=== PATIENT | female | born 1965 | race Caucasian/White ===

== ENCOUNTER 2017-05-04 08:27 | Inpatient (IN) ==
--- NOTE | 2017-05-04 11:54 | General Surg History&Physical ---
<Cristin Zhou - Last Filed: 05/04/17 15:38> Date of Encounter: 05/04/17 Time of Encounter: 11:53 Assessment and Plan (1) Abdominal pain Current Visit: Yes Status: Acute 51 y F presenting with periumbilical abdominal pain transferred from OSH, with current presumptive diagnosis acalcalous cholecystitis. Dr. Campos reviewed imagin , and this may possibly be 2/2 to viral enteritis vs. gallbladder obstruction. Pt currently hemodynamically stable and afebrile, with no peritoneal signs on PE. Will need further imaging to assess nature of etiology. Initial Supportive care with IV fluids, pain control, initiation of antibiotics -NPO. -IVF -ABx: IV Flagyl 500 mg IV q8h and Ciprofloxacin 400 mg IV q12h -Vitals Assessment -U/S Gallbladder -Plan for HIDA scan tomorrow, with Cholecystokinin hepatobiliary imaging -Replete electrolytes prn -Pain control -DVT prophylaxis Plan discussed with patient and family by Dr. Campos, all questions were answered. Pt amenable to plan. Qualifiers: Abdominal location: periumbilical Qualified Code(s): R10.33 - Periumbilical pain (2) Hypothyroidism Current Visit: Yes Status: Acute Hx of Thyroid Cancer Consulted with pharmacy, for conversion for home medication: 62.5 mcg Synthroid Injectable, qD Liothyronine - half-life 24 hrs. Will hold for today. Qualifiers: Hypothyroidism type: postablative Qualified Code(s): E89.0 - Postprocedural hypothyroidism (4) DVT prophylaxis Current Visit: Yes Status: Acute OSH Hgb 13.2/Hgb Inpatient: 13.4 No thrombocytopenia, No History (Hx) of bleeding Jabari Prediction Score for Risk of VTE: 5 (Mobility decreased, Acute infection, Obesity BMI >30) Heparin SubQ BID Intermittent pneumatic compression devices History of Present Illness Chief complaint: Abdominal Pain HPI: Ms. Nicole is a 51 year old female with PMHX of HTN and thyroid cancer s/p synthroid and liothyronine, presenting for abdominal pain, currently rated at a 5/10. Pt states abdominal pain associated with intermittent N/V. She denies diarrhea. Denies yellowing of skin, or coloring suggestive of jaundice. Pt is a transfer from OSH ED, where she initially presented on 05/02/17 with similar abdominal pain and given presumptive diagnosis of acute gastritis. She returned the following day following continued epigastric pain she rated then at a 10/ 10. Per OSH record, pt stated she was unable to keep meals down and endorsed headache, which is why she decided to return for admission. Pt denies hx of GI bleeding, hematochezia, emesis, or any recent or remote history of unexplained bleeding. Labs: 05/03/17 Troponin x2 < 0.03. 05/04/17 CMP Na: 135. K: 3.6. CO2: 24 Anion gap: 24. Creatinine: 0.72. TBil: 0.6. Total Calcium 0.3. CRP: 5.37 05/04/17 WBC: 15.2. Hgb: 13.2 Hct: 39.6. Platelet 299. Imagin05/03/17 CT abdomen/pelvis with following interpretation: Enlarged gallbladder, mild pericholic stranding findings are consistent with early cholecystitis. Social Hx, per record review: Occasional Alcohol Use Surgical HX: Hysterectomy Shoulder Surgery Appendectomy (per EMR) Allergies: Penicillin (Child, unspecified rx). Pt states she has tolerated Keflex, cephalosporins as adult without complications. Medications: Synthroid Oral 125 mcg Daily Liothyronine 5 mcg PO daily Omeprazole Past Med Surg Social Fam HX - Past Medical History Medical history: cancer, hypertension, other Psychiatric history: no psych history - Social History Smoking Status: Former smoker Smokeless Tobacco Status: No Alcohol use: occasionally Drug use: none - Family History Mother Living Status: Age at : 83 Cause of : sepsis Hx Family Cardiac Disorders: Yes (CHF, HTN) Medications and Allergies Liothyronine Sodium [Cytomel] 5 mcg PO DAILY 05/05/17 [History] Omeprazole [PriLOSEC] 20 mg PO DAILY 05/05/17 [History] hydroCHLOROthiazide [Hydrochlorothiazide] 25 mg PO DAILY 05/05/17 [History] 3 Allergy/AdvReac Type Severity Reaction Status Date / Time Penicillins [PCN] AdvReac "FELT Verified 05/05/17 07:21 STRANGE" Review of Systems All systems PM: As documented above in the HPI. General Surgery Exam Physical exam performed by Ignacio Campos MD and dictated as noted below: Vital Signs/O2 Sat/Glucose, Most Current Temp Pulse Resp BP Pulse Ox 05/04/17 11:44 98.4 F 86 18 133/88 92 - General physical appearance no distress, moderate pain - Eyes normal ocular movement - Respiratory normal expansion, normal respiratory effort, clear to auscultation - Cardiovascular Cardiovascular exam: Present: tachycardia, regular rhythm - Abdomen Abdomen general surgery: Present: bowel sounds present (A few normal bowel sounds. Negative Maravilla's sign. Centralized Periumbilica Pain on palpation. Abdominal tenderness not increased with motion. fe). Absent: guarding, rebound Results - Labs 05/04/17 14:33 05/04/17 14:33 Labs, per OSH documentation. - Imaging CT scan - abdomen: report reviewed (OSH CT Angio Abdomen Pelvis 05/03/17 19:53 PM Impression: No CTA evidence of mesenteric ischemia. Distended gallbladder with some questionable mild pericholecystic stranding which was not definetely visualized on prior study of the prior day. Study is howeveer degraded secondary to patient's large body habitus and streak artifact. No radiopaque gallstone is seen. Findings could possibly represent acute cholecystitis if patient with right upper quadrant pain. Futher evaluation with right upper quadrant ultrasound would be recommended. ), image reviewed (OSH, personally reviewed by Dr. Campos) <Ignacio Campos - Last Filed: 05/06/17 08:39> Date of Encounter: 05/04/17 History of Present Illness HPI: Ms. Nicole is a 51 year old female Review of Systems All systems PM: A 10-system review of systems was performed and is negative for pertinent findings except as documented above in the HPI. General Surgery Exam Initial Vital Signs Temp Pulse Resp BP Pulse Ox 98.4 F 86 18 133/88 92 05/04/17 11:44 05/04/17 11:44 05/04/17 11:44 05/04/17 11:44 05/04/17 11:44 Results - Labs 05/06/17 06:25 05/06/17 06:25 Abnormal lab results WBC 16.6 K/mcL (4.3-11.1) H 05/06/17 06:25 MCV 80.8 fL (83.0-100.0) L 05/06/17 06:25 MCH 25.7 pg (28.0-33.3) L 05/06/17 06:25 RDW 15.9 % (11.5-14.5) H 05/06/17 06:25 Neutrophils # 14.3 K/mcL (1.6-8.9) H 05/06/17 06:25 Monocytes # 1.4 K/mcL (0.0-1.3) H 05/06/17 06:25 PT 13.5 Seconds (9.4-12.1) H 05/05/17 06:18 Sodium 132 mEq/L (136-145) L 05/06/17 06:25 Carbon Dioxide 22 mEq/L (23-29) L 05/06/17 06:25 Glucose 127 mg/dL (70-105) H 05/06/17 06:25 POC Glucose 90 (58-89) H 05/05/17 05:26 Calculated Osmolality 276 (280-300) L 05/06/17 06:25 Calcium 8.5 mg/dL (8.6-10.3) L 05/06/17 06:25 Diabetes panel 05/06/17 Range/Units 06:25 Sodium 132 L (136-145) mEq/L Potassium 3.8 (3.5-5.1) mEq/L Chloride 106 (98-107) mEq/L Carbon Dioxide 22 L (23-29) mEq/L BUN 15 (6-20) mg/dL Creatinine 0.65 (0.60-1.20) mg/dL Glucose 127 H (70-105) mg/dL Calcium 8.5 L (8.6-10.3) mg/dL Calcium panel 05/06/17 Range/Units 06:25 Calcium 8.5 L (8.6-10.3) mg/dL Pituitary panel 05/06/17 Range/Units 06:25 Sodium 132 L (136-145) mEq/L Potassium 3.8 (3.5-5.1) mEq/L Chloride 106 (98-107) mEq/L Carbon Dioxide 22 L (23-29) mEq/L BUN 15 (6-20) mg/dL Creatinine 0.65 (0.60-1.20) mg/dL Glucose 127 H (70-105) mg/dL Calcium 8.5 L (8.6-10.3) mg/dL Adrenal panel 05/06/17 Range/Units 06:25 Sodium 132 L (136-145) mEq/L Potassium 3.8 (3.5-5.1) mEq/L Chloride 106 (98-107) mEq/L Carbon Dioxide 22 L (23-29) mEq/L BUN 15 (6-20) mg/dL Creatinine 0.65 (0.60-1.20) mg/dL Glucose 127 H (70-105) mg/dL Calcium 8.5 L (8.6-10.3) mg/dL All other labs normal. - Attending Attestation I examined this patient and my medical decision-making was reviewed with the Resident Physician. I agree with the documented findings, disposition and treatment plan as described except to the extent set forth below. The patient is seen in evaluated with the resident. She has epigastric and central abdominal pain. I personally reviewed the CAT scan images and I felt that the findings were equivocal. She will be scheduled for ultrasound and hepatobiliary testing tomorrow. We will make a presumptive diagnosis of acute cholecystitis and treat her with antibiotic in the interim. She will require laparoscopic cholecystectomy if findings are consistent with acute cholecystitis Ignacio Campos MD FACS
[2017-05-04] MEDS ORDERED: OXYCODONE Oral CONC 10 MG/0.5 ML ORAL.SYG SL PRN (13:26)
[2017-05-04] MEDS ORDERED: Ondansetron 4 MG/2 ML VIAL IVP PRN (13:40)
[2017-05-04] MEDS ORDERED: *HR* Metoprolol 5 MG/5 ML VIAL IVP PRN (13:40)
[2017-05-04] MEDS: 0.9 % Sodium Chloride 1,000 ML IVC SCH (14:35)
[2017-05-04] MEDS: MetroNIDAZOLE 500 MG/100 ML 500 MG/100 ML BAG IVPB SCH (14:35)
[2017-05-04] MEDS: OXYCODONE Oral CONC 10 MG/0.5 ML ORAL.SYG SL PRN (14:36)
[2017-05-04 14:41] LABS: Basophils # 0.1 K/mcL (0.0-0.2); Basophils % 0.4 %; Eosinophils # 0.1 K/mcL (0.0-0.6); Eosinophils % 0.8 %; Hematocrit 42.4 % (35.3-44.9); Hemoglobin 13.4 g/dL (11.5-15.4); Immature Granulocytes % 0.4 % (0-4); Lymphocytes # 2.2 K/mcL (0.6-4.6); Lymphocytes % 15.6 %; Mean Corpuscular HGB Conc 31.6 g/dL (31.6-35.5); Mean Corpuscular Hemoglobin 25.5 pg (28.0-33.3); Mean Corpuscular Volume 80.6 fL (83.0-100.0); Mean Platelet Volume 10.1 fL (9.4-12.4); Monocytes # 1.9 K/mcL (0.0-1.3); Monocytes % 13.1 %; Neutrophils # 9.9 K/mcL (1.6-8.9); Platelet Count 314 K/mcL (140-400); Red Blood Count 5.26 M/mcL (3.82-4.97); Red Cell Distribution Width 15.9 % (11.5-14.5); Segmented Neutrophils % 69.7 %
[2017-05-04 14:59] LABS: Alanine Aminotransferase 16 Units/L (7-52); Albumin/Globulin Ratio 1.4 (1.1-2.2); Alkaline Phosphatase 98 Units/L (34-104); Aspartate Amino Transferase 16 Units/L (13-39); BUN/Creatinine Ratio 16 (6-26); Bilirubin,Direct 0.1 mg/dL (0.0-0.2); Bilirubin,Indirect 0.6 mg/dL (0.0-1.2); Bilirubin,Total 0.7 mg/dL (0.3-1.0); Blood Urea Nitrogen 11 mg/dL (6-20); Calcium 9.1 mg/dL (8.6-10.3); Carbon Dioxide 25 mEq/L (23-29); Chloride 103 mEq/L (98-107); Globulin 2.8 g/dL (2.4-3.5); Glucose 98 mg/dL (70-105); Magnesium 2.1 mg/dL (1.6-2.6); Osmolality,Calculated 281 (280-300); Phosphorous 3.3 mg/dL (2.7-4.5); Potassium 3.6 mEq/L (3.5-5.1); Sodium 136 mEq/L (136-145); Total Protein 6.8 g/dL (6.4-8.9); eGFR For African Americans > 60 (> 60); eGFR For Non-African Americans > 60 (> 60)
[2017-05-04] MEDS ORDERED: D5% in Water 1,000 ML IVC PRN (16:38)
[2017-05-04] MEDS ORDERED: Dextrose Gel 15 GM/37.5 ML TUBE PO PRN ×2 (16:38)
[2017-05-04] MEDS ORDERED: Naloxone 0.4 MG/ML INJ IVP PRN (16:38)
[2017-05-04] MEDS ORDERED: *HR* Dextrose 50 % in Water (Syg) 50 ML SYRINGE IVP PRN (16:38)
[2017-05-04] MEDS: Acetaminophen IV 1,000 MG/100 ML INFUS..BTL IVPB SCH ×2 (16:54→23:45)
[2017-05-04] MEDS: *HR* Heparin 5,000 UNIT/ML VIAL SQ SCH (16:54)
[2017-05-05] MEDS: MetroNIDAZOLE 500 MG/100 ML 500 MG/100 ML BAG IVPB SCH ×3 (00:05→23:05)
[2017-05-05 05:06] LABS: Basophils # 0.1 K/mcL (0.0-0.2); Basophils % 0.4 %; Eosinophils # 0.3 K/mcL (0.0-0.6); Hematocrit 39.5 % (35.3-44.9); Hemoglobin 12.7 g/dL (11.5-15.4); Immature Granulocytes % 0.7 % (0-4); Lymphocytes # 3.1 K/mcL (0.6-4.6); Lymphocytes % 23.2 %; Mean Corpuscular HGB Conc 32.2 g/dL (31.6-35.5); Mean Corpuscular Hemoglobin 25.8 pg (28.0-33.3); Mean Corpuscular Volume 80.3 fL (83.0-100.0); Mean Platelet Volume 10.4 fL (9.4-12.4); Monocytes # 1.7 K/mcL (0.0-1.3); Monocytes % 12.5 %; Neutrophils # 8.1 K/mcL (1.6-8.9); Platelet Count 291 K/mcL (140-400); Red Blood Count 4.92 M/mcL (3.82-4.97); Segmented Neutrophils % 61.2 %
[2017-05-05] MEDS: OXYCODONE Oral CONC 10 MG/0.5 ML ORAL.SYG SL PRN ×3 (05:15→19:09)
[2017-05-05] MEDS: *HR* Heparin 5,000 UNIT/ML VIAL SQ SCH (05:17)
[2017-05-05 05:34] LABS: BUN/Creatinine Ratio 17 (6-26); Blood Urea Nitrogen 12 mg/dL (6-20); Calcium 8.8 mg/dL (8.6-10.3); Carbon Dioxide 24 mEq/L (23-29); Chloride 105 mEq/L (98-107); Glucose 90 mg/dL (70-105); Osmolality,Calculated 283 (280-300); Potassium 3.5 mEq/L (3.5-5.1); Sodium 137 mEq/L (136-145); eGFR For African Americans > 60 (> 60); eGFR For Non-African Americans > 60 (> 60)
[2017-05-05] MEDS ORDERED: MORPHINE SUL Oral CONC 10 MG/0.5 ML ORAL.SYG SL ONE (06:37)
[2017-05-05 06:42] LABS: INR 1.2; Prothrombin Time 13.5 Seconds (9.4-12.1)
[2017-05-05 06:44] LABS: Activated Partial Thrombo Time 29.4 Seconds (26.0-36.0)
[2017-05-05] MEDS ORDERED: Pantoprazole 40 MG VIAL IVP SCH (09:00)
[2017-05-05] MEDS ORDERED: Levothyroxine Sodium 100 MCG VIAL IVP SCH (09:00)
[2017-05-05] MEDS: Acetaminophen IV 1,000 MG/100 ML INFUS..BTL IVPB SCH (09:14)
[2017-05-05] MEDS: 0.9 % Sodium Chloride 1,000 ML IVC SCH (09:18)
[2017-05-05] MEDS ORDERED: *HR* Morphine 2 MG/ML SYRINGE IVP ONE (11:17)
--- NOTE | 2017-05-05 13:08 | General Surgery Progress Note ---
Addendum entered and electronically signed by Cristin Zhou MD 05/05/17 14:40: 05/05/17 HIDA Scan Impression resulted: Nonvisualization of the gallbladder after morphine administration consistent with acute cholecystitis. Dr. Campos personally reviewed findings with patient and consented pt for surgery , plan for today. Pt agreed with plan Original Note: <Cristin Zhou - Last Filed: 05/05/17 13:21> Date of Encounter: 05/05/17 Time of Encounter: 13:06 - Assessment and Plan (1) Abdominal pain Current Visit: Yes Status: Acute -05/05/16 U/S Gallbladder demonstrates Cholelithiasis without sonographic evidence of acute cholecystitis. -HIDA Scan pending -Bowel rest -IVF -ABx: IV Flagyl 500 mg IV q8h and Ciprofloxacin 400 mg IV q12h -Continue Vitals Assessment -Replete electrolytes prn -Pain control -DVT prophylaxis Qualifiers: Abdominal location: periumbilical Qualified Code(s): R10.33 - Periumbilical pain (2) Hypothyroidism Current Visit: Yes Status: Acute Hx of Thyroid Cancer Pharmacy consulted for conversion for home medication: 62.5 mcg Synthroid Injectable, qD Plan to also resume patient's Liothyronine Qualifiers: Hypothyroidism type: postablative Qualified Code(s): E89.0 - Postprocedural hypothyroidism (3) Hypertension Current Visit: Yes Status: Acute BP at goal within hospitalization period so far. Lopressor IV PRN while NPO. Qualifiers: Hypertension type: unspecified Qualified Code(s): I10 - Essential (primary ) hypertension (4) DVT prophylaxis Current Visit: Yes Status: Acute No thrombocytopenia, No History (Hx) of bleeding Jabari Prediction Score for Risk of VTE: 5 (Mobility decreased, Acute infection, Obesity BMI >30) Heparin SubQ BID Intermittent pneumatic compression devices Subjective Patient reports: still having pain, afebrile Narrative: States pain was 7/10 and then diminished without intervention on to 5/0. Objective Vital Signs - Last 8 Hours Temp Pulse Resp BP Pulse Ox 05/05/17 07:00 97.9 F 75 18 117/76 95 Intake and Output 05/04/17 05/05/17 05/05/17 23:59 07:59 15:59 Intake Total 300 / 300 957 / 957 1300 / 1300 Output Total 0 / 0 500 / 500 Balance 300 / 300 457 / 457 1300 / 1300 Intake: IV Fluids 300 / 300 957 / 957 1300 / 1300 0.9 % Sodium Chloride 1,000 ML 757 / 757 1000 / 1000 @ 100 mls/hr IVC .Q10H [facility] Rx#: [id number] Ofirmev 1,000 mg/100 ml 1,000 100 / 100 100 / 100 100 / 100 mg In 100 ml @ 400 mls/hr IVPB Q8HR [facility] Rx#:[id number] Cipro Premix 400 MG/200 ML 400 200 / 200 200 / 200 mg In 200 ml @ 200 mls/hr IVPB Q12HR [facility] Rx#:[id number] Flagyl Premix 500 MG/100 ML 500 100 / 100 mg In 100 ml @ 100 mls/hr IVPB Q8HR [facility] Rx#:[id number] Oral 0 / 0 0 / 0 Output: Urine 0 / 0 500 / 500 Other: Meal NPO for supper NPO Weight 137.6 kg Blood Glucose* 90 90 Patient Weight 05/05/17 23:59 Weight 137.6 kg - General physical appearance moderate pain - Respiratory clear to auscultation, other (Absent: Use of accessory muscles. Crackles. ) - Abdomen Abdomen: Present: bowel sounds present, soft, tender (mild ,RUQ). Absent: rebound - Psychiatric oriented to time, oriented to person, oriented to place, speech is normal - Labs 05/05/17 04:45 05/05/17 04:45 Diabetes panel 05/04/17 05/05/17 Range/Units 14:33 04:45 Sodium 136 137 (136-145) mEq/L Potassium 3.6 3.5 (3.5-5.1) mEq/L Chloride 103 105 (98-107) mEq/L Carbon Dioxide 25 24 (23-29) mEq/L BUN 11 12 (6-20) mg/dL Creatinine 0.67 0.69 (0.60-1.20) mg/dL Glucose 98 90 (70-105) mg/dL Calcium 9.1 8.8 (8.6-10.3) mg/dL AST 16 (13-39) Units/L ALT 16 (7-52) Units/L Alkaline Phosphatase 98 (34-104) Units/L Albumin 4.0 (3.5-5.7) g/dL Calcium panel 05/04/17 05/05/17 Range/Units 14:33 04:45 Calcium 9.1 8.8 (8.6-10.3) mg/dL Phosphorus 3.3 (2.7-4.5) mg/dL Albumin 4.0 (3.5-5.7) g/dL Pituitary panel 05/04/17 05/05/17 Range/Units 14:33 04:45 Sodium 136 137 (136-145) mEq/L Potassium 3.6 3.5 (3.5-5.1) mEq/L Chloride 103 105 (98-107) mEq/L Carbon Dioxide 25 24 (23-29) mEq/L BUN 11 12 (6-20) mg/dL Creatinine 0.67 0.69 (0.60-1.20) mg/dL Glucose 98 90 (70-105) mg/dL Calcium 9.1 8.8 (8.6-10.3) mg/dL Adrenal panel 05/04/17 05/05/17 Range/Units 14:33 04:45 Sodium 136 137 (136-145) mEq/L Potassium 3.6 3.5 (3.5-5.1) mEq/L Chloride 103 105 (98-107) mEq/L Carbon Dioxide 25 24 (23-29) mEq/L BUN 11 12 (6-20) mg/dL Creatinine 0.67 0.69 (0.60-1.20) mg/dL Glucose 98 90 (70-105) mg/dL Calcium 9.1 8.8 (8.6-10.3) mg/dL Total Bilirubin 0.7 (0.3-1.0) mg/dL AST 16 (13-39) Units/L ALT 16 (7-52) Units/L Alkaline Phosphatase 98 (34-104) Units/L Albumin 4.0 (3.5-5.7) g/dL - VTE Documentation of Mechanical Device: Intermittent pneumatic compression device Consult Discharge Plan - Plan Instructions: Laparoscopic Cholecystectomy (DC) Additional Instructions: General Surgical Discharge Instructions 1. No pushing, pulling, or lifting greater than 15 lbs for 2-4 weeks (depending upon procedure). 2. You may shower beginning today, but no tub baths, soaking, or swimming for 2 weeks. 3. You may resume driving when you are off narcotics and are safe to react in a car. 4. Take ibuprofen every 8 hours for discomfort. If this does not relieve discomfort, you may take the as needed Percocet. Take narcotics as directed. Do not take more narcotics then directed and do not share your narcotics with any other person. Do not drink alcohol while on narcotics. 5. Take stool softeners (Colace) or a water based laxative (Miralax) while taking narcotics. You may hold for loose stools. 6. Report any fevers greater than 100.5F, increase abdominal discomfort, drainage that looks like pus, increased redness or pain at the surgical site, or any vomiting. 7. Report any pain in the calves, shortness of breath, or rapid heartbeat. 8. Follow-up in the office as directed. 9. If you were prescribed antibiotics, do not stop them without talking to your provider. Referrals: Adriana Barrios CNP [Primary Care Provider] - Mariama Gonzales CNP [Advanced Practice Nurse] - 05/19/17 2:30 pm Prescriptions: OxyCODONE/APAP 5/325 [Percocet 5/325 MG] 1 each PO Q6HR PRN 7 Days #28 tablet PRN Reason: Pain Docusate Sodium [Colace] 100 mg PO BID PRN #30 capsule PRN Reason: Constipation Ibuprofen 800 mg PO Q8H #30 tablet <Ignacio Campos - Last Filed: 05/06/17 08:53> Date of Encounter: 05/06/17 Objective Vital Signs - Last 8 Hours Temp Pulse Resp BP Pulse Ox 05/06/17 07:33 97.6 F 89 16 101/58 93 05/06/17 04:20 98.6 F 88 16 118/79 94 Intake and Output 05/05/17 05/06/17 05/06/17 23:59 07:59 15:59 Intake Total 200 / 200 200 / 200 Output Total 5 / 5 600 / 600 Balance 195 / 195 -400 / -400 Intake: IV Fluids 200 / 200 200 / 200 Ofirmev 1,000 mg/100 ml 1,000 100 / 100 mg In 100 ml @ 400 mls/hr IVPB Q8HR [facility] Rx#:[id number] Cipro Premix 400 MG/200 ML 400 200 / 200 mg In 200 ml @ 200 mls/hr IVPB Q12HR [facility] Rx#:[id number] Flagyl Premix 500 MG/100 ML 500 100 / 100 mg In 100 ml @ 100 mls/hr IVPB Q8HR [facility] Rx#:[id number] Oral 0 / 0 0 / 0 Output: Urine 0 / 0 0 / 0 Estimated Blood Loss 5 / 5 Catheter 600 / 600 Other: Meal Dinner NPO - Labs 05/06/17 06:25 05/06/17 06:25 Diabetes panel 05/06/17 Range/Units 06:25 Sodium 132 L (136-145) mEq/L Potassium 3.8 (3.5-5.1) mEq/L Chloride 106 (98-107) mEq/L Carbon Dioxide 22 L (23-29) mEq/L BUN 15 (6-20) mg/dL Creatinine 0.65 (0.60-1.20) mg/dL Glucose 127 H (70-105) mg/dL Calcium 8.5 L (8.6-10.3) mg/dL Calcium panel 05/06/17 Range/Units 06:25 Calcium 8.5 L (8.6-10.3) mg/dL Pituitary panel 05/06/17 Range/Units 06:25 Sodium 132 L (136-145) mEq/L Potassium 3.8 (3.5-5.1) mEq/L Chloride 106 (98-107) mEq/L Carbon Dioxide 22 L (23-29) mEq/L BUN 15 (6-20) mg/dL Creatinine 0.65 (0.60-1.20) mg/dL Glucose 127 H (70-105) mg/dL Calcium 8.5 L (8.6-10.3) mg/dL Adrenal panel 05/06/17 Range/Units 06:25 Sodium 132 L (136-145) mEq/L Potassium 3.8 (3.5-5.1) mEq/L Chloride 106 (98-107) mEq/L Carbon Dioxide 22 L (23-29) mEq/L BUN 15 (6-20) mg/dL Creatinine 0.65 (0.60-1.20) mg/dL Glucose 127 H (70-105) mg/dL Calcium 8.5 L (8.6-10.3) mg/dL - Attending Attestation I examined this patient and my medical decision-making was reviewed with the Resident Physician. I agree with the documented findings, disposition and treatment plan as described except to the extent set forth below. The patient is seen and evaluated with resident. Ultrasound and hepatobiliary test were suggestive of acute cholecystitis. We will plan surgery later today. I discussed the risks and benefits with the patient she understands and wishes to proceed Ignacio Campos MD FACS
--- NOTE | 2017-05-05 16:28 | Anesthesia Evaluation PreOp ---
Date of Encounter: 05/05/17 Time of Encounter: 16:30 - Past History Planned Operation: Lap Cholecystectomy Cardiac History: Denies any Significant Hx Pulmonary History: Denies Any Significant HX LEARNING CENTER COORDINATOR History: Denies Any Significant HX Other Medical History: Thyroid (Hypothyroid), Other (Morbid Obesity) Anesthesia History: No Prior Anesthetic Complications : No Alcohol Use: occasionally Drug use: none Medications and Allergies Liothyronine Sodium [Cytomel] 5 mcg PO DAILY 05/05/17 [History] Omeprazole [PriLOSEC] 20 mg PO DAILY 05/05/17 [History] hydroCHLOROthiazide [Hydrochlorothiazide] 25 mg PO DAILY 05/05/17 [History] 3 Allergy/AdvReac Type Severity Reaction Status Date / Time Penicillins [PCN] AdvReac "FELT Verified 05/05/17 07:21 STRANGE" - Meds/Allergy Pre-op Review Medications Reviewed: Yes Allergies Reviewed: Yes Beta Blockers on Current Med List: No Anesthesia Results - Labs 05/05/17 04:45 05/05/17 04:45 Laboratory Tests 05/05/17 05/05/17 04:45 04:45 Hgb 12.7 Hct 39.5 Plt Count 291 Sodium 137 Potassium 3.5 BUN 12 Creatinine 0.69 Anesthesia Exam O2 Sat Weight 137.6 kg O2 Sat by Pulse Oximetry 95 O2 Sat by Pulse Oximetry 95 O2 Sat by Pulse Oximetry 95 O2 Sat by Pulse Oximetry 94 O2 Sat by Pulse Oximetry 92 O2 Sat by Pulse Oximetry 96 Vital Signs Temp Pulse Resp BP Pulse Ox 98.4 F 86 18 133/88 92 05/04/17 11:44 05/04/17 11:44 05/04/17 11:44 05/04/17 11:44 05/04/17 11:44 Height: 5'11 Weight: 303 lbs NPO (# of Hours): MN Pain Scale: 0 - HEENT Pupil (Motor): Pupils equal, EOMI Mallampati: II Teeth: Normal Oral Opening: Greater than 3 - LEARNING CENTER COORDINATOR LOC: Oriented LEARNING CENTER COORDINATOR Motor: Normal RUE, Normal LUE, Normal RLE, Normal LLE, Normal Face LEARNING CENTER COORDINATOR Sensory: Normal: RUE, LUE, RLE, LLE, Face - Cardiac Rhythm: Regular Murmur: None JVD: No Carotid Bruit: No - Pulmonary Breath Sounds: bilateral Clear Respiratory Effort: Symmetrical Anesthesia Assess/Plan ASA Score: 3 (MO Hypothyroid) Modified Kerman Scale for Level of Consciousness: Cooperative, oriented, and tranquil Anesthetic Plan: General Monitoring Plan: Standard Monitors Recovery Plan: PACU (Discussed GA, agrees to proceed)
[2017-05-05] MEDS ORDERED: *HR* Midazolam HCl 2 MG/2 ML VIAL ONE (16:33)
[2017-05-05] MEDS ORDERED: Lidocaine -MPF 2% 2 ML VIAL ONE (16:33)
[2017-05-05] MEDS ORDERED: *HR* Propofol 200 MG/20 ML VIAL IVP ONE (16:33)
[2017-05-05] MEDS ORDERED: *HR* FentaNYL (PF) 100 MCG/2 ML VIAL ONE (16:33)
[2017-05-05] MEDS ORDERED: *HR* Rocuronium Bromide 50 MG/5 ML VIAL ONE (16:33)
[2017-05-05] MEDS ORDERED: Dexamethasone 4 MG/ML VIAL ONE (16:35)
[2017-05-05] MEDS ORDERED: Acetaminophen IV 1,000 MG/100 ML INFUS..BTL ONE (16:39)
[2017-05-05] MEDS ORDERED: CefOXitin 1,000 MG VIAL ONE (16:43)
[2017-05-05] MEDS ORDERED: Isovue-300 50 ML VIAL IVP ONE (16:58)
[2017-05-05] MEDS ORDERED: MORPHINE SUL Oral CONC 10 MG/0.5 ML ORAL.SYG SL PRN ×2 (17:22→18:38)
[2017-05-05] MEDS ORDERED: *HR* OxyCODONE Immed Rel 5 MG TABLET PO PRN (17:22)
[2017-05-05] MEDS ORDERED: *HR* Promethazine 25 MG/ML VIAL IVP PRN (17:22)
[2017-05-05] MEDS ORDERED: Ketorolac 30 MG/ML VIAL ONE (17:26)
[2017-05-05] MEDS ORDERED: Ondansetron 4 MG/2 ML VIAL ONE (17:26)
[2017-05-05] MEDS ORDERED: Bupivacaine/Clonidine Syringe 1 EACH SYRINGE ONE (17:47)
--- NOTE | 2017-05-05 17:59 | Operative Note ---
Date of procedure: 05/05/17 Pre-op diagnosis: Acute cholecystitis Post-op diagnosis: same Procedure: Laparoscopic cholecystectomy, cholangiogram (+30% obesity, obstructive gallbladder, acute cholecystitis) Anesthesia: IVA Surgeon: Ignacio Campos Was there an senior care assistant present: Yes Core Paster: Josie Au Estimated blood loss (cc): 20 Specimen: Gallbladder and contents Condition: stable Disposition: PACU Procedure in Detail: Laparoscopic cholecystectomy and intraoperative cholangiogram (+30% for acute gallbladder obstruction, acute cholecystitis, body mass index greater than 43 morbid obesity) Operative procedure after informed consent and appropriate patient identification and timeout the patient was taken to the major operating suite and placed supine position given adequate general endotracheal anesthesia the abdomen is prepped and draped in sterile fashion utilizing ChloraPrep standard draping techniques timeout was taken patient is identified. I made a vertical midline incision below the umbilicus dissected down to level of fascia there are 2 traction stitches placed in the abdominal cavity was entered visually. A León trocar was placed in the abdomen and the abdomen was insufflated to 15 mmHg pressure CO2 the gallbladder was visualized. A placement 11 port in the subxiphoid area and 2 5 mm ports in the subcostal area. The gallbladder was encased and acute inflammatory adhesions and acutely obstructed. Once the inflammatory adhesions were removed. I was able to decompress the gallbladder with the decompression needle. The gallbladder was full of white bile. The gallbladder was grasped and elevated. Because of the patient's profound morbid obesity I had to change the scope from 0 to a 30 degree scope making the dissection much more difficult. 30 minutes was added to the dissection time A variety of blunt and sharp dissection techniques were used to isolate the cystic duct and cystic artery. The cystic artery was controlled with 2 surgical clips proximally and one distally and it was divided I placed a surgical clip on the neck the gallbladder and obtained an intraoperative cholangiogram using 10 mL of Isovue. Intraoperative cholangiogram was normal. The cholangiocatheter was removed and the cystic duct was controlled with 2 surgical clips proximally and was divided the gallbladder was removed from the gallbladder fossae using electrocautery. The gallbladder was necrotic in several areas resulting in spillage of abdominal contents. All spilled stones were recovered in the specimen bag. The gallbladder was removed through the #11 port site. Specimen bag was used for retrieval. I replaced the #11 port and irrigated with copious amounts of antibiotic containing solution. There is no evidence of bleeding or bile leak. All trochars were removed. Fascia was closed with 0 Vicryl skin with 2-0 and 4-0 Vicryl She tolerated the procedure well and was transferred to recovery in stable condition
[2017-05-05] MEDS ORDERED: Neostigmine Methylsulfate 3 MG/3 ML SYRINGE ONE (18:14)
[2017-05-05] MEDS ORDERED: *HR* Metoprolol 5 MG/5 ML VIAL IVP PRN (18:38)
[2017-05-05] MEDS ORDERED: *HR* Dextrose 50 % in Water (Syg) 50 ML SYRINGE IVP PRN (18:38)
[2017-05-05] MEDS ORDERED: Dextrose Gel 15 GM/37.5 ML TUBE PO PRN ×2 (18:38)
[2017-05-05] MEDS ORDERED: D5% in Water 1,000 ML IVC PRN (18:38)
[2017-05-05] MEDS ORDERED: 0.9 % Sodium Chloride 1,000 ML IVC SCH (18:38)
[2017-05-05] MEDS ORDERED: Naloxone 0.4 MG/ML INJ IVP PRN (18:38)
[2017-05-05] MEDS ORDERED: OXYCODONE Oral CONC 10 MG/0.5 ML ORAL.SYG SL PRN (18:38)
--- NOTE | 2017-05-05 18:49 | Anesthesia Evaluation Post Op ---
Date of Encounter: 05/05/17 Time of Encounter: 18:49 - Vital Signs Vital Signs: vss - Lungs Lungs: Clear Ascult./Percussion - Airway Airway: Non-obstructed - Cardiovascular Baseline Rhythm - Mental Status Mental Status: Asleep with brisk response to light stimulation - Pain Pain Scale used: Karyna (Faces) - Nausea Vomiting Nausea Vomiting: Not Present - Hydration Hydration: Ice chips - Discharge PostOp Status: Transfer Patient to floor
[2017-05-06] MEDS ORDERED: Acetaminophen IV 1,000 MG/100 ML INFUS..BTL IVPB SCH
[2017-05-06] MEDS: OXYCODONE Oral CONC 10 MG/0.5 ML ORAL.SYG SL PRN (05:11)
[2017-05-06] MEDS: *HR* Heparin 5,000 UNIT/ML VIAL SQ SCH ×2 (05:12→16:54)
[2017-05-06 06:59] LABS: BUN/Creatinine Ratio 23 (6-26); Blood Urea Nitrogen 15 mg/dL (6-20); Calcium 8.5 mg/dL (8.6-10.3); Carbon Dioxide 22 mEq/L (23-29); Chloride 106 mEq/L (98-107); Glucose 127 mg/dL (70-105); Osmolality,Calculated 276 (280-300); Potassium 3.8 mEq/L (3.5-5.1); Sodium 132 mEq/L (136-145); eGFR For African Americans > 60 (> 60); eGFR For Non-African Americans > 60 (> 60)
[2017-05-06 07:12] LABS: Basophils % 0.2 %; Hemoglobin 12.7 g/dL (11.5-15.4); Immature Granulocytes % 0.5 % (0-4); Lymphocytes # 0.8 K/mcL (0.6-4.6); Lymphocytes % 4.5 %; Mean Corpuscular HGB Conc 31.8 g/dL (31.6-35.5); Mean Corpuscular Hemoglobin 25.7 pg (28.0-33.3); Mean Corpuscular Volume 80.8 fL (83.0-100.0); Mean Platelet Volume 10.5 fL (9.4-12.4); Monocytes # 1.4 K/mcL (0.0-1.3); Monocytes % 8.7 %; Neutrophils # 14.3 K/mcL (1.6-8.9); Platelet Count 290 K/mcL (140-400); Red Blood Count 4.95 M/mcL (3.82-4.97); Red Cell Distribution Width 15.9 % (11.5-14.5); Segmented Neutrophils % 86.1 %
[2017-05-06] MEDS ORDERED: Ketorolac 30 MG/ML VIAL IVP ONE (08:34)
[2017-05-06] MEDS: Levothyroxine Sodium 100 MCG VIAL IVP SCH (08:39)
[2017-05-06] MEDS: MetroNIDAZOLE 500 MG/100 ML 500 MG/100 ML BAG IVPB SCH ×3 (08:41→23:39)
--- NOTE | 2017-05-06 08:47 | Discharge Summary ---
Date of Encounter: 05/06/17 Time of Encounter: 07:15 - Discharge Diagnosis (1) Acute cholecystitis Priority: Primary Status: Acute (2) Obesity (BMI 35.0-39.9 without comorbidity) Priority: Secondary Status: Acute (3) Hypothyroidism Priority: Secondary Status: Acute Qualifiers: Hypothyroidism type: postablative Qualified Code(s): E89.0 - Postprocedural hypothyroidism - Discharge Medications Prescriptions: OxyCODONE/APAP 5/325 [Percocet 5/325 MG] 1 each PO Q6HR PRN 7 Days #28 tablet PRN Reason: Pain Docusate Sodium [Colace] 100 mg PO BID PRN #30 capsule PRN Reason: Constipation Ibuprofen 800 mg PO Q8H #30 tablet Home Medications: Liothyronine Sodium [Cytomel] 5 mcg PO DAILY 05/05/17 [History] Omeprazole [PriLOSEC] 20 mg PO DAILY 05/05/17 [History] hydroCHLOROthiazide [Hydrochlorothiazide] 25 mg PO DAILY 05/05/17 [History] Docusate Sodium [Colace] 100 mg PO BID PRN #30 capsule 05/06/17 [Rx] Ibuprofen 800 mg PO Q8H #30 tablet 05/06/17 [Rx] OxyCODONE/APAP 5/325 [Percocet 5/325 MG] 1 each PO Q6HR PRN 7 Days #28 tablet [Rx] Allergies/Adverse Reactions: 3 Allergy/AdvReac Type Severity Reaction Status Date / Time Penicillins [PCN] AdvReac "FELT Verified 05/05/17 07:21 STRANGE" General Surgery Exam Initial Vital Signs Temp Pulse Resp BP Pulse Ox 98.4 F 86 18 133/88 92 05/04/17 11:44 05/04/17 11:44 05/04/17 11:44 05/04/17 11:44 05/04/17 11:44 - General physical appearance no distress, moderate pain, obese - ENT normal mucosa, atraumatic, normocephalic - Neck trachea midline, no venous distension - Respiratory normal expansion, normal respiratory effort, clear to auscultation - Cardiovascular Cardiovascular exam: Present: distant heart sounds - Abdomen Abdomen general surgery: Present: bowel sounds present, soft, tender (Expected postoperative) Hernia: Present: none - Incision Incision: Present: clean and dry, intact - Integumentary Integumentary general surgery: Present: warm and dry, no abnormal pigmentation - Neurologic Present: CN 2-12 grossly intact, normal coordination, normal sensation - Musculoskeletal Present: normal gait, normal posture - Psychiatric Psychiatric general surgery: Present: A&Ox3, appropriate, oriented to person, oriented to place, oriented to time, speech is normal, memory intact Date of admission: 05/04/17 10:42 Primary care physician: Adriana Barrios, Discharging clinician: Ignacio Pizano) Anticipated date of discharge: 05/06/17 - Patient Status Disposition: Home, Self-Care Condition: Good Functional capacity at discharge: independent ambulation Overall status at discharge: patient is progressing back to baseline - Discharge Instructions Instructions: Laparoscopic Cholecystectomy (DC) Follow Up With: Adriana Barrios CNP [Primary Care Provider] - Mariama Gonzales CNP [Advanced Practice Nurse] - 05/19/17 2:30 pm Forms: Inpatient Work/School Release Additional Instructions: General Surgical Discharge Instructions 1. No pushing, pulling, or lifting greater than 15 lbs for 2-4 weeks (depending upon procedure). 2. You may shower beginning today, but no tub baths, soaking, or swimming for 2 weeks. 3. You may resume driving when you are off narcotics and are safe to react in a car. 4. Take ibuprofen every 8 hours for discomfort. If this does not relieve discomfort, you may take the as needed Percocet. Take narcotics as directed. Do not take more narcotics then directed and do not share your narcotics with any other person. Do not drink alcohol while on narcotics. 5. Take stool softeners (Colace) or a water based laxative (Miralax) while taking narcotics. You may hold for loose stools. 6. Report any fevers greater than 100.5F, increase abdominal discomfort, drainage that looks like pus, increased redness or pain at the surgical site, or any vomiting. 7. Report any pain in the calves, shortness of breath, or rapid heartbeat. 8. Follow-up in the office as directed. 9. If you were prescribed antibiotics, do not stop them without talking to your provider. - Diet and Activity Activity: increase activity as tolerated Diet: advance to your usual diet - Hospital Course Hospital course: Ms. Nicole is a 51 year old female who presented on 05/04/2017 for complaints of right upper quadrant pain. She underwent [place] scan which showed no visualization of the gallbladder after morphine administration indicative of acute cholecystitis, and a right upper quadrant ultrasound which was also consistent with cholelithiasis without evidence of acute cholecystitis. She was taken to the operating room on 05/05/2017 or she underwent a laparoscopic cholecystectomy with choliangiogram which revealed obstructive gallbladder in acute cholecystitis. She has received Cipro and Flagyl pre-and postoperatively. She is ambulating avoiding without difficulty, tolerating a regular diet without nausea or vomiting, vital signs are stable, afebrile, and her abdominal discomfort is overall control. We will begin discharge planning to home with a follow-up in the office in 2 weeks. - Time Spent with Patient Total time spent providing and/or coordinating discharge services: Less than 30 minutes Labs on day of discharge: Labs from last 24 hours 05/06/17 05/06/17 06:25 06:25 WBC 16.6 H RBC 4.95 Hgb 12.7 Hct 40.0 MCV 80.8 L MCH 25.7 L MCHC 31.8 RDW 15.9 H Plt Count 290 MPV 10.5 Immature Gran % 0.5 Seg Neutrophils % 86.1 Lymphocytes % 4.5 Monocytes % 8.7 Eosinophils % 0.0 Basophils % 0.2 Neutrophils # 14.3 H Lymphocytes # 0.8 Monocytes # 1.4 H Eosinophils # 0.0 Basophils # 0.0 Sodium 132 L Potassium 3.8 Chloride 106 Carbon Dioxide 22 L BUN 15 Creatinine 0.65 Est GFR ( Amer) > 60 Est GFR (Non-Af Amer) > 60 BUN/Creatinine Ratio 23 Glucose 127 H Calculated Osmolality 276 L Calcium 8.5 L Preliminary micro results at discharge 05/04/17 14:33 Blood Culture - Preliminary Peripheral Venipuncture No growth. 05/04/17 14:13 Blood Culture - Preliminary Peripheral Venipuncture No growth. - Impressions ITS Impressions Gallbladder Ultrasound 05/04/17 14:03 IMPRESSION: Cholelithiasis without sonographic evidence of acute cholecystitis. D/ / 05/04/2017 16:53:26 Zeke Salgado MD / angi Interpreting Provider: Zeke Salgado MD Bile Acid Absorption NM 05/05/17 10:00 IMPRESSION: Nonvisualization of the gallbladder after morphine administration consistent with acute cholecystitis. D/ / Tremaine Juarez MD / Tremaine Juarez MD Interpreting Provider: Tremaine Juarez MD Cholangiogram,Operative 05/05/17 17:25 IMPRESSION: Normal intraoperative cholangiogram. D/ / Zeke Verdugo MD / Zeke Verdugo MD Interpreting Provider: Zeke Verdugo MD
[2017-05-06] MEDS ORDERED: Pantoprazole 40 MG VIAL IVP SCH (09:00)
[2017-05-06] MEDS: hydroCHLOROthiazide 25 MG TABLET PO SCH (09:59)
[2017-05-06] MEDS: *HR* OxyCODONE/APAP 5/325 TABLET PO PRN ×2 (11:32→20:33)
[2017-05-06 14:17] LABS: Bilirubin,Urine Moderate (Negative); Blood,Urine Negative (Negative); Clarity,Urine Cloudy (Clear); Color,Urine Orange (Yellow); Glucose,Urine (UA) Normal (Normal); Ketones,Urine 15 mg/dL (Negative); Leukocyte Esterase,Urine Trace (Negative); Nitrite,Urine Positive (Negative); Protein,Urine 30 mg/dL (Neg-Trace); Specific Gravity,Urine > 1.030 (1.010-1.025); Urobilinogen,Urine Normal (Normal)
[2017-05-06 14:19] LABS: Bacteria,Urine None Seen per hpf (None-Few); Hyaline Casts,Urine Few per lpf (None-Few); RBC,Urine 0-3 per hpf (0-3); Squamous Epithelial Cell,Urine Many per lpf (None-Few)
[2017-05-06] MEDS ORDERED: *HR* FentaNYL (PF) 100 MCG/2 ML VIAL IVP ONE (14:31)
--- NOTE | 2017-05-06 14:34 | General Surgery Progress Note ---
<HarinderAlma Jesus Manuel - Last Filed: 05/06/17 14:32> Date of Encounter: 05/06/17 Time of Encounter: 14:33 - Assessment and Plan (1) Acute cholecystitis Current Visit: Yes Status: Acute s/p lap shania 05/05/2017 Postoperative pain is not controlled at this time. Remain in the hospital for discomfort management and acute urinary retention/P anesthesia. Continue supportive care and discomfort management ambulate TID (2) Acute urinary retention Current Visit: Yes Status: Acute Insert gay Continue FLomax daily (3) Obesity (BMI 35.0-39.9 without comorbidity) Current Visit: Yes Status: Acute (4) Hypothyroidism Current Visit: Yes Status: Acute Qualifiers: Hypothyroidism type: postablative Qualified Code(s): E89.0 - Postprocedural hypothyroidism Subjective Patient reports: still having pain, tolerating liquids well, afebrile Narrative: Miss winn denies nausea, vomiting, or worsening abdominal discomfort. She reports difficulty with urination. She was originally posted for discharge this a.m. after lunch however she states that her abdominal discomfort is not controlled after the administration of 30 mg IV Toradol one dose as well as to Percocet (5/325mg). Bedside RN reports that she did straight The patient and had approximately 200 ML's of dark urine now. UA was sent but results are pending. Bedside RN reports that patient's abdominal discomfort is not controlled and should not feel like she can go home at this time. Objective Vital Signs - Last 8 Hours Temp Pulse Resp BP Pulse Ox 05/06/17 11:16 97.3 F L 77 14 112/72 94 05/06/17 07:33 97.6 F 89 16 101/58 93 Intake and Output 05/05/17 05/06/17 05/06/17 23:59 07:59 15:59 Intake Total 200 / 200 200 / 200 480 / 480 Output Total 5 / 5 600 / 600 200 / 200 Balance 195 / 195 -400 / -400 280 / 280 Intake: IV Fluids 200 / 200 200 / 200 Ofirmev 1,000 mg/100 ml 1,000 100 / 100 mg In 100 ml @ 400 mls/hr IVPB Q8HR [facility] Rx#:[id number] Cipro Premix 400 MG/200 ML 400 200 / 200 mg In 200 ml @ 200 mls/hr IVPB Q12HR [facility] Rx#:[id number] Flagyl Premix 500 MG/100 ML 500 100 / 100 mg In 100 ml @ 100 mls/hr IVPB Q8HR [facility] Rx#:[id number] Oral 0 / 0 0 / 0 480 / 480 Output: Urine 0 / 0 0 / 0 200 / 200 Estimated Blood Loss 5 / 5 Catheter 600 / 600 Other: Meal Dinner NPO Lunch Percent of Meal Consumed 0% - General physical appearance moderate distress, moderate pain - ENT atraumatic, normocephalic - Neck Neck exam: trachea midline, no venous distension - Respiratory normal expansion, normal respiratory effort, clear to auscultation - Cardiovascular Cardiovascular exam: Present: distant heart sounds - Abdomen Abdomen: Present: bowel sounds present, soft, tender Hernia: none - Incision Incision: Present: clean and dry, intact - Integumentary no abnormal pigmentation - Neurologic normal coordination, normal sensation - Musculoskeletal normal posture - Psychiatric oriented to time, oriented to person, oriented to place, memory intact - Labs 05/06/17 06:25 05/06/17 06:25 Diabetes panel 05/06/17 Range/Units 06:25 Sodium 132 L (136-145) mEq/L Potassium 3.8 (3.5-5.1) mEq/L Chloride 106 (98-107) mEq/L Carbon Dioxide 22 L (23-29) mEq/L BUN 15 (6-20) mg/dL Creatinine 0.65 (0.60-1.20) mg/dL Glucose 127 H (70-105) mg/dL Calcium 8.5 L (8.6-10.3) mg/dL Calcium panel 05/06/17 Range/Units 06:25 Calcium 8.5 L (8.6-10.3) mg/dL Pituitary panel 05/06/17 Range/Units 06:25 Sodium 132 L (136-145) mEq/L Potassium 3.8 (3.5-5.1) mEq/L Chloride 106 (98-107) mEq/L Carbon Dioxide 22 L (23-29) mEq/L BUN 15 (6-20) mg/dL Creatinine 0.65 (0.60-1.20) mg/dL Glucose 127 H (70-105) mg/dL Calcium 8.5 L (8.6-10.3) mg/dL Adrenal panel 05/06/17 Range/Units 06:25 Sodium 132 L (136-145) mEq/L Potassium 3.8 (3.5-5.1) mEq/L Chloride 106 (98-107) mEq/L Carbon Dioxide 22 L (23-29) mEq/L BUN 15 (6-20) mg/dL Creatinine 0.65 (0.60-1.20) mg/dL Glucose 127 H (70-105) mg/dL Calcium 8.5 L (8.6-10.3) mg/dL - VTE Reasons for not Prescribing Prophylaxis: Treatment not Indicated - Low risk for VTE Documentation of Mechanical Device: Graduated compression elastic hosiery Consult Discharge Plan - Plan Instructions: Laparoscopic Cholecystectomy (DC) Additional Instructions: General Surgical Discharge Instructions 1. No pushing, pulling, or lifting greater than 15 lbs for 2-4 weeks (depending upon procedure). 2. You may shower beginning today, but no tub baths, soaking, or swimming for 2 weeks. 3. You may resume driving when you are off narcotics and are safe to react in a car. 4. Take ibuprofen every 8 hours for discomfort. If this does not relieve discomfort, you may take the as needed Percocet. Take narcotics as directed. Do not take more narcotics then directed and do not share your narcotics with any other person. Do not drink alcohol while on narcotics. 5. Take stool softeners (Colace) or a water based laxative (Miralax) while taking narcotics. You may hold for loose stools. 6. Report any fevers greater than 100.5F, increase abdominal discomfort, drainage that looks like pus, increased redness or pain at the surgical site, or any vomiting. 7. Report any pain in the calves, shortness of breath, or rapid heartbeat. 8. Follow-up in the office as directed. 9. If you were prescribed antibiotics, do not stop them without talking to your provider. Referrals: Adriana Barrios CNP [Primary Care Provider] - Mariama Gonzales CNP [Advanced Practice Nurse] - 05/19/17 2:30 pm Prescriptions: OxyCODONE/APAP 5/325 [Percocet 5/325 MG] 1 each PO Q6HR PRN 7 Days #28 tablet PRN Reason: Pain Docusate Sodium [Colace] 100 mg PO BID PRN #30 capsule PRN Reason: Constipation Ibuprofen 800 mg PO Q8H #30 tablet <Ignacio Campos - Last Filed: 05/07/17 16:21> Date of Encounter: 05/06/17 Objective Vital Signs - Last 8 Hours Temp Pulse Resp BP Pulse Ox 05/07/17 15:16 97.6 F 104 20 94/56 91 05/07/17 12:03 16 93 05/07/17 11:10 98.5 F 93 18 100/68 93 Intake and Output 05/07/17 05/07/17 05/07/17 07:59 15:59 23:59 Intake Total 100 / 100 190 / 190 Output Total 300 / 300 150 / 150 Balance -200 / -200 40 / 40 Intake: IV Fluids 100 / 100 100 / 100 Flagyl Premix 500 MG/100 ML 500 100 / 100 100 / 100 mg In 100 ml @ 100 mls/hr IVPB Q8HR [facility] Rx#:[id number] Oral 0 / 0 90 / 90 Output: Urine 0 / 0 0 / 0 Catheter 300 / 300 150 / 150 Other: Meal Breakfast Percent of Meal Consumed 100% - Labs 05/07/17 05:31 05/07/17 07:49 Diabetes panel 05/07/17 Range/Units 07:49 Sodium 133 L (136-145) mEq/L Potassium 3.3 L (3.5-5.1) mEq/L Chloride 103 (98-107) mEq/L Carbon Dioxide 23 (23-29) mEq/L BUN 22 H (6-20) mg/dL Creatinine 0.84 (0.60-1.20) mg/dL Glucose 149 H (70-105) mg/dL Calcium 8.3 L (8.6-10.3) mg/dL AST 27 (13-39) Units/L ALT 32 (7-52) Units/L Alkaline Phosphatase 122 H (34-104) Units/L Albumin 2.8 L (3.5-5.7) g/dL Calcium panel 05/07/17 Range/Units 07:49 Calcium 8.3 L (8.6-10.3) mg/dL Albumin 2.8 L (3.5-5.7) g/dL Pituitary panel 05/07/17 Range/Units 07:49 Sodium 133 L (136-145) mEq/L Potassium 3.3 L (3.5-5.1) mEq/L Chloride 103 (98-107) mEq/L Carbon Dioxide 23 (23-29) mEq/L BUN 22 H (6-20) mg/dL Creatinine 0.84 (0.60-1.20) mg/dL Glucose 149 H (70-105) mg/dL Calcium 8.3 L (8.6-10.3) mg/dL Adrenal panel 05/07/17 Range/Units 07:49 Sodium 133 L (136-145) mEq/L Potassium 3.3 L (3.5-5.1) mEq/L Chloride 103 (98-107) mEq/L Carbon Dioxide 23 (23-29) mEq/L BUN 22 H (6-20) mg/dL Creatinine 0.84 (0.60-1.20) mg/dL Glucose 149 H (70-105) mg/dL Calcium 8.3 L (8.6-10.3) mg/dL Total Bilirubin 0.9 (0.3-1.0) mg/dL AST 27 (13-39) Units/L ALT 32 (7-52) Units/L Alkaline Phosphatase 122 H (34-104) Units/L Albumin 2.8 L (3.5-5.7) g/dL - Attending Attestation I examined this patient and my medical decision-making was reviewed with the Resident Physician. I agree with the documented findings, disposition and treatment plan as described except to the extent set forth below. The patient was seen and evaluated on morning rounds. She had laparoscopic cholecystectomy last night for severe acute cholecystitis. She continues to have epigastric pain. Continue antibiotics today. Ignacio Campos MD FACS
[2017-05-06] MEDS ORDERED: 0.9 % Sodium Chloride 1,000 ML IVC ONE (14:35)
[2017-05-06] MEDS: Ketorolac 15 MG/ML VIAL IVP SCH ×2 (16:55→23:40)
[2017-05-07] MEDS: *HR* OxyCODONE/APAP 5/325 TABLET PO PRN ×2 (03:06→16:31)
[2017-05-07] MEDS ORDERED: *HR* OxyCODONE/APAP 5/325 TABLET PO ONE (05:40)
[2017-05-07 05:59] LABS: Basophils % 0.2 %; Eosinophils % 0.2 %; Hematocrit 42.4 % (35.3-44.9); Hemoglobin 13.9 g/dL (11.5-15.4); Immature Granulocytes % 1.2 % (0-4); Lymphocytes # 1.4 K/mcL (0.6-4.6); Lymphocytes % 8.8 %; Mean Corpuscular HGB Conc 32.8 g/dL (31.6-35.5); Mean Corpuscular Hemoglobin 25.8 pg (28.0-33.3); Mean Corpuscular Volume 78.8 fL (83.0-100.0); Mean Platelet Volume 11.5 fL (9.4-12.4); Monocytes # 1.6 K/mcL (0.0-1.3); Neutrophils # 12.8 K/mcL (1.6-8.9); Platelet Count 371 K/mcL (140-400); Red Blood Count 5.38 M/mcL (3.82-4.97); Red Cell Distribution Width 16.1 % (11.5-14.5); Segmented Neutrophils % 79.6 %
[2017-05-07] MEDS: Ketorolac 15 MG/ML VIAL IVP SCH ×4 (06:07→23:27)
[2017-05-07] MEDS: *HR* Heparin 5,000 UNIT/ML VIAL SQ SCH ×2 (06:08→18:16)
[2017-05-07 08:12] LABS: Alanine Aminotransferase 32 Units/L (7-52); Albumin 2.8 g/dL (3.5-5.7); Alkaline Phosphatase 122 Units/L (34-104); Aspartate Amino Transferase 27 Units/L (13-39); BUN/Creatinine Ratio 26 (6-26); Bilirubin,Direct 0.4 mg/dL (0.0-0.2); Bilirubin,Indirect 0.5 mg/dL (0.0-1.2); Bilirubin,Total 0.9 mg/dL (0.3-1.0); Blood Urea Nitrogen 22 mg/dL (6-20); Calcium 8.3 mg/dL (8.6-10.3); Carbon Dioxide 23 mEq/L (23-29); Chloride 103 mEq/L (98-107); Globulin 2.8 g/dL (2.4-3.5); Glucose 149 mg/dL (70-105); Osmolality,Calculated 282 (280-300); Potassium 3.3 mEq/L (3.5-5.1); Sodium 133 mEq/L (136-145); Total Protein 5.6 g/dL (6.4-8.9); eGFR For African Americans > 60 (> 60); eGFR For Non-African Americans > 60 (> 60)
[2017-05-07] MEDS: hydroCHLOROthiazide 25 MG TABLET PO SCH (09:59)
[2017-05-07] MEDS: Levothyroxine Sodium 100 MCG VIAL IVP SCH (10:00)
[2017-05-07] MEDS: MetroNIDAZOLE 500 MG/100 ML 500 MG/100 ML BAG IVPB SCH ×3 (10:03→23:28)
[2017-05-07] MEDS: Ipratropium/Albuterol Neb 3 ML IH SCH ×4 (11:56→21:21)
--- NOTE | 2017-05-07 12:35 | General Surgery Progress Note ---
<GemMariama Lizeth - Last Filed: 05/07/17 12:33> Date of Encounter: 05/07/17 Time of Encounter: 12:30 - Assessment and Plan (1) Acute cholecystitis Current Visit: Yes Status: Acute POD #[address] Campos Regular diet IV antibiotics- Cipro and Flagyl Supportive care and pain control Ambulate hallways TID with assistance PPI therapy daily Incentive Spirometer every 1 hour while awake (2) Acute urinary retention Current Visit: Yes Status: Acute UA complete- no culture indicated Flomax started 05/06/17 Continue gay catheter to SD for strict I&Os (3) Shortness of breath Current Visit: Yes Status: Acute Duonebs scheduled every 6 hours Stat CXR now Incentive Spirometer every 1 hour while awake (4) Hypothyroidism Current Visit: Yes Status: Chronic Continue home regimen of synthroid Qualifiers: Hypothyroidism type: postablative Qualified Code(s): E89.0 - Postprocedural hypothyroidism (5) Hypertension Current Visit: Yes Status: Chronic Normotensive at this time Continue home medication regimen Will continue to monitor and adjust as necessary Qualifiers: Hypertension type: unspecified Qualified Code(s): I10 - Essential (primary ) hypertension (6) Obesity (BMI 35.0-39.9 without comorbidity) Current Visit: Yes Status: Chronic (7) DVT prophylaxis Current Visit: Yes Status: Acute Continue heparin 5000 units subcutaneous twice daily for DVT prophylaxis EPCDs to bilateral lower extremities as ordered for DVT prophylaxis The hallways 3 times a day with assistance Subjective Patient reports: still having pain, tolerating liquids well, flatus, afebrile, other (Patient with complaint of cough and worsening shortness of breath since yesterday (Aerosol treatment was not helpful); Unable to void and gay catheter placed 05/06/17) Objective Vital Signs - Last 8 Hours Temp Pulse Resp BP Pulse Ox 05/07/17 12:03 16 93 05/07/17 11:10 98.5 F 93 18 100/68 93 05/07/17 07:12 98.5 F 91 18 107/71 93 Intake and Output 05/06/17 05/07/17 05/07/17 23:59 07:59 15:59 Intake Total 300 / 300 100 / 100 190 / 190 Output Total 0 / 0 300 / 300 150 / 150 Balance 300 / 300 -200 / -200 40 / 40 Intake: IV Fluids 300 / 300 100 / 100 100 / 100 Cipro Premix 400 MG/200 ML 400 200 / 200 mg In 200 ml @ 200 mls/hr IVPB Q12HR [facility] Rx#:[id number] Flagyl Premix 500 MG/100 ML 500 100 / 100 100 / 100 100 / 100 mg In 100 ml @ 100 mls/hr IVPB Q8HR [facility] Rx#:[id number] Oral 0 / 0 0 / 0 90 / 90 Output: Urine 0 / 0 Catheter 0 / 0 300 / 300 150 / 150 Other: Meal Patient refused dinner tray- eating ice chips Breakfast Percent of Meal Consumed 0% 100% - General physical appearance well developed, well nourished, moderate distress, moderate pain, obese - Eyes normal ocular movement - ENT normal mucosa, atraumatic, normocephalic - Neck Neck exam: trachea midline - Respiratory other (diminished bibasilar breath sounds with tachypnea and non-productive/dry cough noted) wheezing: bilateral - Cardiovascular Cardiovascular exam: Present: RRR - Abdomen Abdomen: Present: bowel sounds present, soft, tender (Expected postoperative tenderness) - Incision Incision: Present: clean and dry, intact - Genitourinary other (Gay catheter to straight drain with clear, yellow urine) - Integumentary no rash - Neurologic CN 2-12 grossly intact - Psychiatric oriented to time, oriented to person, oriented to place, speech is normal, memory intact - Labs 05/07/17 05:31 05/07/17 07:49 Diabetes panel 05/07/17 Range/Units 07:49 Sodium 133 L (136-145) mEq/L Potassium 3.3 L (3.5-5.1) mEq/L Chloride 103 (98-107) mEq/L Carbon Dioxide 23 (23-29) mEq/L BUN 22 H (6-20) mg/dL Creatinine 0.84 (0.60-1.20) mg/dL Glucose 149 H (70-105) mg/dL Calcium 8.3 L (8.6-10.3) mg/dL AST 27 (13-39) Units/L ALT 32 (7-52) Units/L Alkaline Phosphatase 122 H (34-104) Units/L Albumin 2.8 L (3.5-5.7) g/dL Calcium panel 05/07/17 Range/Units 07:49 Calcium 8.3 L (8.6-10.3) mg/dL Albumin 2.8 L (3.5-5.7) g/dL Pituitary panel 05/07/17 Range/Units 07:49 Sodium 133 L (136-145) mEq/L Potassium 3.3 L (3.5-5.1) mEq/L Chloride 103 (98-107) mEq/L Carbon Dioxide 23 (23-29) mEq/L BUN 22 H (6-20) mg/dL Creatinine 0.84 (0.60-1.20) mg/dL Glucose 149 H (70-105) mg/dL Calcium 8.3 L (8.6-10.3) mg/dL Adrenal panel 05/07/17 Range/Units 07:49 Sodium 133 L (136-145) mEq/L Potassium 3.3 L (3.5-5.1) mEq/L Chloride 103 (98-107) mEq/L Carbon Dioxide 23 (23-29) mEq/L BUN 22 H (6-20) mg/dL Creatinine 0.84 (0.60-1.20) mg/dL Glucose 149 H (70-105) mg/dL Calcium 8.3 L (8.6-10.3) mg/dL Total Bilirubin 0.9 (0.3-1.0) mg/dL AST 27 (13-39) Units/L ALT 32 (7-52) Units/L Alkaline Phosphatase 122 H (34-104) Units/L Albumin 2.8 L (3.5-5.7) g/dL - VTE Reasons for not Prescribing Prophylaxis: Treatment not Indicated - Low risk for VTE Documentation of Mechanical Device: Intermittent pneumatic compression device Consult Discharge Plan - Plan Instructions: Laparoscopic Cholecystectomy (DC) Additional Instructions: General Surgical Discharge Instructions 1. No pushing, pulling, or lifting greater than 15 lbs for 2-4 weeks (depending upon procedure). 2. You may shower beginning today, but no tub baths, soaking, or swimming for 2 weeks. 3. You may resume driving when you are off narcotics and are safe to react in a car. 4. Take ibuprofen every 8 hours for discomfort. If this does not relieve discomfort, you may take the as needed Percocet. Take narcotics as directed. Do not take more narcotics then directed and do not share your narcotics with any other person. Do not drink alcohol while on narcotics. 5. Take stool softeners (Colace) or a water based laxative (Miralax) while taking narcotics. You may hold for loose stools. 6. Report any fevers greater than 100.5F, increase abdominal discomfort, drainage that looks like pus, increased redness or pain at the surgical site, or any vomiting. 7. Report any pain in the calves, shortness of breath, or rapid heartbeat. 8. Follow-up in the office as directed. 9. If you were prescribed antibiotics, do not stop them without talking to your provider. Referrals: Adriana Barrios CNP [Primary Care Provider] - Mariama Gonzales CNP [Advanced Practice Nurse] - 05/19/17 2:30 pm Prescriptions: OxyCODONE/APAP 5/325 [Percocet 5/325 MG] 1 each PO Q6HR PRN 7 Days #28 tablet PRN Reason: Pain Docusate Sodium [Colace] 100 mg PO BID PRN #30 capsule PRN Reason: Constipation Ibuprofen 800 mg PO Q8H #30 tablet - Attending Attestation For this encounter, I have reviewed the STAFFING CONSULTANT or PA documentation, treatment plan, and medical decision making; and I have had face to face time with this patient. <Ignacio Campos - Last Filed: 05/07/17 16:24> Date of Encounter: 05/07/17 Objective Vital Signs - Last 8 Hours Temp Pulse Resp BP Pulse Ox 05/07/17 15:16 97.6 F 104 20 94/56 91 05/07/17 12:03 16 93 05/07/17 11:10 98.5 F 93 18 100/68 93 Intake and Output 05/07/17 05/07/17 05/07/17 07:59 15:59 23:59 Intake Total 100 / 100 190 / 190 Output Total 300 / 300 150 / 150 Balance -200 / -200 40 / 40 Intake: IV Fluids 100 / 100 100 / 100 Flagyl Premix 500 MG/100 ML 500 100 / 100 100 / 100 mg In 100 ml @ 100 mls/hr IVPB Q8HR [facility] Rx#:[id number] Oral 0 / 0 90 / 90 Output: Urine 0 / 0 0 / 0 Catheter 300 / 300 150 / 150 Other: Meal Breakfast Percent of Meal Consumed 100% - Labs 05/07/17 05:31 05/07/17 07:49 Diabetes panel 05/07/17 Range/Units 07:49 Sodium 133 L (136-145) mEq/L Potassium 3.3 L (3.5-5.1) mEq/L Chloride 103 (98-107) mEq/L Carbon Dioxide 23 (23-29) mEq/L BUN 22 H (6-20) mg/dL Creatinine 0.84 (0.60-1.20) mg/dL Glucose 149 H (70-105) mg/dL Calcium 8.3 L (8.6-10.3) mg/dL AST 27 (13-39) Units/L ALT 32 (7-52) Units/L Alkaline Phosphatase 122 H (34-104) Units/L Albumin 2.8 L (3.5-5.7) g/dL Calcium panel 05/07/17 Range/Units 07:49 Calcium 8.3 L (8.6-10.3) mg/dL Albumin 2.8 L (3.5-5.7) g/dL Pituitary panel 05/07/17 Range/Units 07:49 Sodium 133 L (136-145) mEq/L Potassium 3.3 L (3.5-5.1) mEq/L Chloride 103 (98-107) mEq/L Carbon Dioxide 23 (23-29) mEq/L BUN 22 H (6-20) mg/dL Creatinine 0.84 (0.60-1.20) mg/dL Glucose 149 H (70-105) mg/dL Calcium 8.3 L (8.6-10.3) mg/dL Adrenal panel 05/07/17 Range/Units 07:49 Sodium 133 L (136-145) mEq/L Potassium 3.3 L (3.5-5.1) mEq/L Chloride 103 (98-107) mEq/L Carbon Dioxide 23 (23-29) mEq/L BUN 22 H (6-20) mg/dL Creatinine 0.84 (0.60-1.20) mg/dL Glucose 149 H (70-105) mg/dL Calcium 8.3 L (8.6-10.3) mg/dL Total Bilirubin 0.9 (0.3-1.0) mg/dL AST 27 (13-39) Units/L ALT 32 (7-52) Units/L Alkaline Phosphatase 122 H (34-104) Units/L Albumin 2.8 L (3.5-5.7) g/dL - Attending Attestation The patient was seen and evaluated this afternoon. She has mild tachycardia. CAT scan of the chest and abdomen demonstrated some free air in the abdomen. I feel that this is consistent with her laparoscopic cholecystectomy from 36 hours ago. There is no fluid in the upper abdomen that would indicate perforated viscus. Inflammatory changes in the mesentery are likely secondary to the severe acute cholecystitis that was treated 36 hours ago. On physical examination she did not have guarding or rebound. She is tender in the epigastrium and left upper quadrant. We will continue her antibiotics and watch her very closely clinically. If she continues to have abdominal pain tomorrow we may further study the upper gastrointestinal tract with Gastrografin. Ignacio Campos MD FACS
[2017-05-07] MEDS ORDERED: Potassium Chloride 40 MEQ, Lidocaine 1% 2 ML in D5% in Water 500 ML IVPB ONE (15:38)
[2017-05-08] MEDS: Ipratropium/Albuterol Neb 3 ML IH SCH ×5 (04:27→23:45)
[2017-05-08] MEDS: *HR* Heparin 5,000 UNIT/ML VIAL SQ SCH ×2 (05:42→19:17)
[2017-05-08] MEDS: Ketorolac 15 MG/ML VIAL IVP SCH ×3 (05:42→19:18)
[2017-05-08 05:58] LABS: BUN/Creatinine Ratio 29 (6-26); Blood Urea Nitrogen 23 mg/dL (6-20); Calcium 8.3 mg/dL (8.6-10.3); Carbon Dioxide 20 mEq/L (23-29); Chloride 101 mEq/L (98-107); Glucose 119 mg/dL (70-105); Osmolality,Calculated 279 (280-300); Potassium 3.5 mEq/L (3.5-5.1); Sodium 132 mEq/L (136-145); eGFR For African Americans > 60 (> 60); eGFR For Non-African Americans > 60 (> 60)
[2017-05-08 06:13] LABS: Basophils # 0.1 K/mcL (0.0-0.2); Basophils % 0.4 %; Eosinophils # 0.3 K/mcL (0.0-0.6); Eosinophils % 1.7 %; Hemoglobin 11.9 g/dL (11.5-15.4); Immature Granulocytes % 1.7 % (0-4); Immature Platelets 6.5 % (1.1-6.1); Lymphocytes # 2.2 K/mcL (0.6-4.6); Lymphocytes % 14.1 %; Mean Corpuscular HGB Conc 32.2 g/dL (31.6-35.5); Mean Corpuscular Hemoglobin 25.9 pg (28.0-33.3); Mean Corpuscular Volume 80.6 fL (83.0-100.0); Mean Platelet Volume 10.8 fL (9.4-12.4); Monocytes # 1.8 K/mcL (0.0-1.3); Monocytes % 11.3 %; Neutrophils # 11.1 K/mcL (1.6-8.9); Platelet Count 343 K/mcL (140-400); Red Blood Count 4.59 M/mcL (3.82-4.97); Red Cell Distribution Width 16.3 % (11.5-14.5); Segmented Neutrophils % 70.8 %
[2017-05-08 06:49] LABS: Microcytosis Present (Not Present); Platelet Estimate Normal (Normal)
[2017-05-08] MEDS: Levothyroxine Sodium 100 MCG VIAL IVP SCH (08:26)
[2017-05-08] MEDS: MetroNIDAZOLE 500 MG/100 ML 500 MG/100 ML BAG IVPB SCH ×3 (08:27→23:33)
[2017-05-08] MEDS: hydroCHLOROthiazide 25 MG TABLET PO SCH (11:07)
--- NOTE | 2017-05-08 13:29 | General Surgery Progress Note ---
Date of Encounter: 05/08/17 Time of Encounter: 08:00 (reassessment 1300) - Assessment and Plan (1) Acute cholecystitis Current Visit: Yes Status: Acute s/p lap shania 05/05/2017 hospital course has been complicated thus far by acute urinary retention 2/2 anesthesia, inability to control abdominal discomfort for which she completed an abdominal/pelvis CT which noted scattered colonic gas and stool with no Colonic inflammation changes noted. There was no significant bowel distention; a large amount of free intraperitoneal air greater than the expected 2 days postoperative course; Some mottled gas present within this sub diaphragmatic fat on the left. Mild and filtration of the mesenteric fat. There was no focal abscess seen; small quantity of intra-abdominal ascites. The images were thought to be worrisome for perforation. The images were reviewed by Dr. Campos who fel the free air in the abdomen was consistent with her laparoscopic cholecystectomy approximately 36 hours previously. There was no fluid in the upper abdomen that would indicate a perforated viscous. The inflammatory changes in the mesentery were likely secondary to the severe acute cholecystitis that was treated in the previous 36 hours. She did not have regarding or rebound tenderness on exam. She was recommended to continue her antibiotics and if the abdominal pain continued recommendations for an upper G.I. with Gastrograffin. Her white blood cell count is down trending, without bandemia, Hgb is stable. She is a-febrile,tachycardic, and reports SOB. Upon her morning assessment she stated she was feeling somewhat better and her abdominal pain was controlled. She was restarted on clear liquids. Upon reassessment at approximately 1300, she stated her abdominal discomfort had significantly increased, she felt short of breath, but denied nausea or vomiting. Plan: Upper GI with gatrograffin NPO pending further recommendations continue supportive care and discomfort management continue IV antibiotics continue G.I. and DVT prophylaxis (2) Shortness of breath Current Visit: Yes Status: Acute s/p CTA chest 05/07/2017 (detailed below) no evidence of PE noted. Small left pleural effusion noted. Bilateral lower lobe atelectasis (left greater than right) noted. He was started on scheduled duonebs, BiPAP therapy, incentive spirometry Q1 hour while awake, and encouraged to ambulate as tolerated. Today she reports continued shortness of breath at rest. She is tachycardic. She is sating above 92% on room air. She states she is attempting to use the incentive spirometry but is unable to inhale greater than 500. Plan: Accupap Duonebs per RT (RT consult placed) Aggressive pulmonary toileting Imaging (cxr) less than 44 hours after admission indicates new airspace disease. No infiltrate noted on CTA. Given continued SOB, will repeat CXR and Will switch ATBX Cpiro to Levaquin to cover S. pneumoniae for possible community acquired pneumonia. Continue IV Flagyl. FINDINGS: Chest CTA Pulmonary arteries: Adequate opacification of the pulmonary arterial circulation. No evidence of pulmonary embolic disease. The main pulmonary artery is normal in caliber. Mediastinum: The thoracic aorta is normal in course and caliber. The heart is not enlarged. No pericardial effusion. No pathologic hilar or mediastinal adenopathy. Postoperative changes consistent with previous thyroidectomy. Lungs/pleura: Small left pleural effusion. Bilateral lower lobe atelectasis, left greater than right. No acute infiltrate. No pneumothorax. The central airways are patent. Soft Tissues/Bones: No acute osseous or soft tissue abnormality. FINDINGS: CXR New airspace disease in the left lung base which could represent atelectasis or infiltrate. Left effusion. (3) Acute urinary retention Current Visit: Yes Status: Acute Flomax d/c gay strict I/Os (4) Obesity (BMI 35.0-39.9 without comorbidity) Current Visit: Yes Status: Chronic (5) Hypothyroidism Current Visit: Yes Status: Chronic Qualifiers: Hypothyroidism type: postablative Qualified Code(s): E89.0 - Postprocedural hypothyroidism Subjective Narrative: In the am assessment Jasmyn stated that she felt somewhat improved. She reported continued shortness of breath that had not worsened. She had just returned to bed from ambulating in the hallway. Bedside RN, Lucinda, present during a.m. assessment and noted that patient had done well walking. She denied a bowel movement, nausea, vomiting, and stated her abdominal discomfort was controlled at that point in time. Her Gay catheter was recommended to be removed and she was encouraged to increase her amount of water consumption. Upon reassessment at 1 PM, Jasmyn states her left upper quadrant discomfort has significantly worsened. She reports continued shortness of breath stating she has been attempting her incentive spirometry as directed by is unable to inhale greater than 500 on the unfounded spirometry due to abdominal discomfort and feeling as though she just cannot continue breathing in. Of note her clear liquid tray is at bedside and she has consumed approximately 10%. She denies cough or difficulty urinating. Objective Vital Signs - Last 8 Hours Temp Pulse Resp BP Pulse Ox 05/08/17 10:34 18 95 05/08/17 10:19 98.2 F 106 18 114/73 94 05/08/17 06:42 98.4 F 107 19 106/68 96 Intake and Output 05/07/17 05/08/17 05/08/17 23:59 07:59 15:59 Intake Total 360 / 360 882 / 882 120 / 120 Output Total 200 / 200 300 / 300 175 / 175 Balance 160 / 160 582 / 582 -55 / -55 Intake: IV Fluids 300 / 300 822 / 822 Cipro Premix 400 MG/200 ML 400 200 / 200 200 / 200 mg In 200 ml @ 200 mls/hr IVPB Q12HR [facility] Rx#:[id number] Flagyl Premix 500 MG/100 ML 500 100 / 100 100 / 100 mg In 100 ml @ 100 mls/hr IVPB Q8HR [facility] Rx#:[id number] KCl 40 MEQ Xylocaine 2 ML In 522 / 522 Dextrose 5% 500 ML @ 130.5 mls/ hr IVPB ONCE ONE Rx#:[id number] Oral 60 / 60 60 / 60 120 / 120 Output: Urine 0 / 0 25 / 25 Catheter 200 / 200 300 / 300 150 / 150 Other: Meal Dinner Breakfast Percent of Meal Consumed 100% Weight 137.8 kg Patient Weight 05/08/17 23:59 Weight 137.8 kg - General physical appearance moderate pain, other (Short of breath at rest.) - ENT atraumatic, normocephalic - Neck Neck exam: trachea midline, no venous distension - Respiratory other (Decreased breath sounds; decreased inspiratory effort; short of breath at rest. Able to speak in 2 to 3 word sentences) - Cardiovascular Cardiovascular exam: Present: tachycardia, murmurs, distant heart sounds - Abdomen Abdomen: Present: bowel sounds present (Faint at best. Body habitus impedes BS assessement) Hernia: none Additional Comments: Pt states abdomen feels distended. Her body habitus makes assessing distention and bowel sounds difficult at this time. - Incision Incision: Present: clean and dry, intact - Integumentary no rash - Neurologic normal coordination, normal sensation - Musculoskeletal other (Sitting upright in bed. Ice pack is applied to the left upper quadrant.) - Psychiatric oriented to time, oriented to person, oriented to place, speech is normal, memory intact - Labs 05/08/17 05:23 05/08/17 05:23 Diabetes panel 05/08/17 Range/Units 05:23 Sodium 132 L (136-145) mEq/L Potassium 3.5 (3.5-5.1) mEq/L Chloride 101 (98-107) mEq/L Carbon Dioxide 20 L (23-29) mEq/L BUN 23 H (6-20) mg/dL Creatinine 0.78 (0.60-1.20) mg/dL Glucose 119 H (70-105) mg/dL Calcium 8.3 L (8.6-10.3) mg/dL Calcium panel 05/08/17 Range/Units 05:23 Calcium 8.3 L (8.6-10.3) mg/dL Pituitary panel 05/08/17 Range/Units 05:23 Sodium 132 L (136-145) mEq/L Potassium 3.5 (3.5-5.1) mEq/L Chloride 101 (98-107) mEq/L Carbon Dioxide 20 L (23-29) mEq/L BUN 23 H (6-20) mg/dL Creatinine 0.78 (0.60-1.20) mg/dL Glucose 119 H (70-105) mg/dL Calcium 8.3 L (8.6-10.3) mg/dL Adrenal panel 05/08/17 Range/Units 05:23 Sodium 132 L (136-145) mEq/L Potassium 3.5 (3.5-5.1) mEq/L Chloride 101 (98-107) mEq/L Carbon Dioxide 20 L (23-29) mEq/L BUN 23 H (6-20) mg/dL Creatinine 0.78 (0.60-1.20) mg/dL Glucose 119 H (70-105) mg/dL Calcium 8.3 L (8.6-10.3) mg/dL - VTE Reasons for not Prescribing Prophylaxis: Treatment not Indicated - Low risk for VTE Documentation of Mechanical Device: Intermittent pneumatic compression device Consult Discharge Plan - Plan Instructions: Laparoscopic Cholecystectomy (DC) Additional Instructions: General Surgical Discharge Instructions 1. No pushing, pulling, or lifting greater than 15 lbs for 2-4 weeks (depending upon procedure). 2. You may shower beginning today, but no tub baths, soaking, or swimming for 2 weeks. 3. You may resume driving when you are off narcotics and are safe to react in a car. 4. Take ibuprofen every 8 hours for discomfort. If this does not relieve discomfort, you may take the as needed Percocet. Take narcotics as directed. Do not take more narcotics then directed and do not share your narcotics with any other person. Do not drink alcohol while on narcotics. 5. Take stool softeners (Colace) or a water based laxative (Miralax) while taking narcotics. You may hold for loose stools. 6. Report any fevers greater than 100.5F, increase abdominal discomfort, drainage that looks like pus, increased redness or pain at the surgical site, or any vomiting. 7. Report any pain in the calves, shortness of breath, or rapid heartbeat. 8. Follow-up in the office as directed. 9. If you were prescribed antibiotics, do not stop them without talking to your provider. Referrals: Adriana Barrios CNP [Primary Care Provider] - Mariama Gonzales CNP [Advanced Practice Nurse] - 05/19/17 2:30 pm
[2017-05-08] MEDS ORDERED: Acetaminophen IV 1,000 MG/100 ML INFUS..BTL IVPB ONE (14:29)
[2017-05-08] MEDS ORDERED: MORPHINE SUL Oral CONC 10 MG/0.5 ML ORAL.SYG SL ONE (14:30)
[2017-05-08] MEDS: Levofloxacin 750 MG/150 ML 750 MG/150 ML BAG IVPB SCH (14:54)
[2017-05-08] MEDS ORDERED: Furosemide 40 MG/4 ML VIAL IVP ONE (15:35)
[2017-05-08] MEDS: Ondansetron 4 MG/2 ML VIAL IVP PRN (16:24)
[2017-05-08] MEDS: Metoclopramide 10 MG/2 ML VIAL IVP SCH ×2 (19:18→23:32)
[2017-05-09] MEDS: Ipratropium/Albuterol Neb 3 ML IH SCH ×4 (03:40→21:36)
[2017-05-09 04:23] LABS: Basophils # 0.1 K/mcL (0.0-0.2); Basophils % 0.5 %; Eosinophils # 0.4 K/mcL (0.0-0.6); Eosinophils % 2.7 %; Hematocrit 34.2 % (35.3-44.9); Hemoglobin 11.2 g/dL (11.5-15.4); Immature Granulocytes % 3.8 % (0-4); Immature Platelets 5.9 % (1.1-6.1); Lymphocytes # 1.2 K/mcL (0.6-4.6); Lymphocytes % 7.6 %; Mean Corpuscular HGB Conc 32.7 g/dL (31.6-35.5); Mean Corpuscular Hemoglobin 25.8 pg (28.0-33.3); Mean Corpuscular Volume 78.8 fL (83.0-100.0); Mean Platelet Volume 10.4 fL (9.4-12.4); Monocytes # 1.7 K/mcL (0.0-1.3); Monocytes % 10.3 %; Neutrophils # 12.2 K/mcL (1.6-8.9); Platelet Count 410 K/mcL (140-400); Red Blood Count 4.34 M/mcL (3.82-4.97); Red Cell Distribution Width 15.9 % (11.5-14.5); Segmented Neutrophils % 75.1 %
[2017-05-09 04:34] LABS: Hemoglobin A1C 5.1 %
[2017-05-09 05:12] LABS: Alanine Aminotransferase 17 Units/L (7-52); Albumin 2.8 g/dL (3.5-5.7); Alkaline Phosphatase 124 Units/L (34-104); Aspartate Amino Transferase 11 Units/L (13-39); BUN/Creatinine Ratio 26 (6-26); Bilirubin,Direct 0.2 mg/dL (0.0-0.2); Bilirubin,Indirect 0.5 mg/dL (0.0-1.2); Bilirubin,Total 0.7 mg/dL (0.3-1.0); Blood Urea Nitrogen 21 mg/dL (6-20); Calcium 8.1 mg/dL (8.6-10.3); Carbon Dioxide 23 mEq/L (23-29); Chloride 99 mEq/L (98-107); Globulin 2.9 g/dL (2.4-3.5); Glucose 111 mg/dL (70-105); Osmolality,Calculated 282 (280-300); Potassium 2.9 mEq/L (3.5-5.1); Sodium 134 mEq/L (136-145); Total Protein 5.7 g/dL (6.4-8.9); eGFR For African Americans > 60 (> 60); eGFR For Non-African Americans > 60 (> 60)
[2017-05-09] MEDS: *HR* Heparin 5,000 UNIT/ML VIAL SQ SCH ×2 (05:57→17:10)
[2017-05-09] MEDS: Metoclopramide 10 MG/2 ML VIAL IVP SCH (05:57)
[2017-05-09] MEDS ORDERED: Potassium Chloride 40 MEQ, Lidocaine 1% 2 ML in D5% in Water 500 ML IVPB ONE (06:59)
[2017-05-09 07:49] LABS: Iron < 10 mcg/dL (50-170); Transferrin 154 mg/dL (203-362)
[2017-05-09] MEDS ORDERED: 0.9 % Sodium Chloride 1,000 ML IVC ONE (08:26)
--- NOTE | 2017-05-09 08:58 | General Surgery Progress Note ---
<Alma Pizano - Last Filed: 05/09/17 10:13> Date of Encounter: 05/09/17 Time of Encounter: 08:00 - Assessment and Plan (1) Acute cholecystitis Current Visit: Yes Status: Acute POD #3 s/p elizabeth boylee 05/05/2017 hospital course has been complicated thus far by acute urinary retention 2/2 anesthesia, inability to control abdominal discomfort for which she completed an abdominal/pelvis CT which noted scattered colonic gas and stool with no Colonic inflammation changes noted. There was no significant bowel distention; a large amount of free intraperitoneal air greater than the expected 2 days postoperative course; Some mottled gas present within this sub diaphragmatic fat on the left. Mild and filtration of the mesenteric fat. There was no focal abscess seen; small quantity of intra-abdominal ascites. The images were thought to be worrisome for perforation. The images were reviewed by Dr. Campos who fel the free air in the abdomen was consistent with her laparoscopic cholecystectomy approximately 36 hours previously. There was no fluid in the upper abdomen that would indicate a perforated viscous. The inflammatory changes in the mesentery were likely secondary to the severe acute cholecystitis that was treated in the previous 36 hours. She did not have regarding or rebound tenderness on exam. She was recommended to continue her antibiotics and since her abdominal discomfort persisted, an Upper G.I. with Gastrograffin was obtained which did not reveal any evidence of leak. She was nauseated and had an episode of vomiting after the upper G.I. for which she was treated with Zofran and she stated this resolved. She reports that her abdominal discomfort is well-controlled today. She reports her discomfort as a 2 out of 10. She has had a bowel movement and is passing gas. Her abdominal exam is benign. She states she has "absolutely no appetite." She did not attempt to eat her full liquid diet yesterday. Her white blood cell count increased slightly from 15.7>>16.3 and remains without bandemia. Her hgb is stable. Plan: Full liquid diet; advance diet as tolerated add protein supplements continue supportive care and discomfort management continue IV antibiotics continue G.I. and DVT prophylaxis See assessment and plan for shortness of breath for further recommendations (2) Shortness of breath Current Visit: Yes Status: Acute Plan: TNI now, then Q6H x2 BNP STAT echo-may use enhancement if necessary Consider cardiology consult. Continue Accupap Duonebs per RT (RT consult placed) Aggressive pulmonary toileting Will check iron studies to rule out anemia as source of SOB Interval Assessment history this admission: Imaging (cxr) less than 44 hours after admission indicates new airspace disease (atelectasis versus community acquired pneumonia). No infiltrate noted on CTA. Given continued SOB antibiotics: Cipro changed to Levaquin to cover S pneumoniae , continue IV Flagyl, 40 mg Lasix times 1 dose given for left pleural effusion ( notably patient was only 3 L positive over the submission). Standing scale weight up 3.7KG this admission. She was started on Duonebs and PRN BIpap 2017 and Accupap added 05/08/2017. 05/09/2017 she reports continued feelings of shortness of breath that rest that has not improved. She remains tachycardic. She is 92 to 98% on 3 L nasal cannula. An EKG was obtained at bedside and reviewed by this COMPUTER FORENSICS ANALYST. EKG with ST Q -waves noted in the anterolateral leads, nonspecific ST T wave changes. 1014 Update: TNI, BNP normal. Iron is <10, transferrin 154; will transfuse with Venofer; further recommendations pending. (3) Acute urinary retention Current Visit: Yes Status: Acute Flomax strict I/Os Will bolus x1L over 2-3 hours for tachycardia and decreased urinary output related to poor po intake (4) Obesity (BMI 35.0-39.9 without comorbidity) Current Visit: Yes Status: Chronic (5) Hypothyroidism Current Visit: Yes Status: Chronic Qualifiers: Hypothyroidism type: postablative Qualified Code(s): E89.0 - Postprocedural hypothyroidism (6) Hypokalemia Current Visit: Yes Status: Acute Replace electrolytes as indicated. Repeat a.m. labs Subjective Patient reports: feels better, still having pain, pain is less, voiding w/o difficulty, flatus, bowel movement, shortness of breath, afebrile Narrative: Jasmyn states her abdominal discomfort is significantly improved since yesterday. She reports passing gas and having bowel movement. She rates or discomfort as a 2 out of 10 and feels like soreness. She reports that she has "no appetite." She complains of continued shortness of breath both with activity and rest despite breathing treatments and lasix yesterday. She denies any past history of cardiovascular testing. She does report that heart disease runs in her family on both her mother father and grandparents. Objective Vital Signs - Last 8 Hours Temp Pulse Resp BP Pulse Ox 05/09/17 07:32 98.2 F 113 16 91/58 98 05/09/17 04:23 99.0 F 104 16 114/68 96 05/09/17 03:40 16 92 Intake and Output 05/08/17 05/09/17 05/09/17 23:59 07:59 15:59 Intake Total 370 / 370 160 / 160 Output Total 425 / 425 400 / 400 200 / 200 Balance -55 / -55 -240 / -240 -200 / -200 Intake: IV Fluids 250 / 250 100 / 100 Levaquin Premix 750mg/150 mL 150 / 150 750 mg In 150 ml @ 100 mls/hr IVPB [facility]ILY [facility] Rx#:[id number] Flagyl Premix 500 MG/100 ML 500 100 / 100 100 / 100 mg In 100 ml @ 100 mls/hr IVPB Q8HR [facility] Rx#:[id number] Oral 120 / 120 60 / 60 Output: Urine 425 / 425 400 / 400 200 / 200 Other: Stool Size Small Stool Consistency liquid Stool Color Brown Weight 137.6 kg 141.294 kg Patient Weight 05/09/17 23:59 Weight 141.294 kg - General physical appearance moderate pain, obese, other (Minimal distress. Short of breath rest.) - Eyes normal ocular movement - ENT atraumatic, normocephalic - Neck Neck exam: trachea midline, no venous distension - Respiratory other (Decreased breath sounds in the bilateral basis. Left lower lobe with inspiratory crackles noted.) - Cardiovascular Cardiovascular exam: Present: tachycardia, murmurs, distant heart sounds - Abdomen Abdomen: Present: bowel sounds present, soft, tender (Expected postoperative) Hernia: none - Incision Incision: Present: clean and dry, intact - Integumentary no abnormal pigmentation - Neurologic normal coordination, normal sensation - Musculoskeletal normal posture - Psychiatric oriented to time, oriented to person, oriented to place, memory intact - Labs 05/09/17 03:30 05/09/17 03:30 Diabetes panel 05/09/17 05/09/17 Range/Units 03:30 03:30 Sodium 134 L (136-145) mEq/L Potassium 2.9 L (3.5-5.1) mEq/L Chloride 99 (98-107) mEq/L Carbon Dioxide 23 (23-29) mEq/L BUN 21 H (6-20) mg/dL Creatinine 0.80 (0.60-1.20) mg/dL Glucose 111 H (70-105) mg/dL Hemoglobin A1c 5.1 ( - 5.6) % Calcium 8.1 L (8.6-10.3) mg/dL AST 11 L (13-39) Units/L ALT 17 (7-52) Units/L Alkaline Phosphatase 124 H (34-104) Units/L Albumin 2.8 L (3.5-5.7) g/dL Calcium panel 05/09/17 Range/Units 03:30 Calcium 8.1 L (8.6-10.3) mg/dL Albumin 2.8 L (3.5-5.7) g/dL Pituitary panel 05/09/17 Range/Units 03:30 Sodium 134 L (136-145) mEq/L Potassium 2.9 L (3.5-5.1) mEq/L Chloride 99 (98-107) mEq/L Carbon Dioxide 23 (23-29) mEq/L BUN 21 H (6-20) mg/dL Creatinine 0.80 (0.60-1.20) mg/dL Glucose 111 H (70-105) mg/dL Calcium 8.1 L (8.6-10.3) mg/dL Adrenal panel 05/09/17 Range/Units 03:30 Sodium 134 L (136-145) mEq/L Potassium 2.9 L (3.5-5.1) mEq/L Chloride 99 (98-107) mEq/L Carbon Dioxide 23 (23-29) mEq/L BUN 21 H (6-20) mg/dL Creatinine 0.80 (0.60-1.20) mg/dL Glucose 111 H (70-105) mg/dL Calcium 8.1 L (8.6-10.3) mg/dL Total Bilirubin 0.7 (0.3-1.0) mg/dL AST 11 L (13-39) Units/L ALT 17 (7-52) Units/L Alkaline Phosphatase 124 H (34-104) Units/L Albumin 2.8 L (3.5-5.7) g/dL - VTE Reasons for not Prescribing Prophylaxis: Treatment not Indicated - Low risk for VTE Documentation of Mechanical Device: Intermittent pneumatic compression device Consult Discharge Plan - Plan Instructions: Laparoscopic Cholecystectomy (DC) Additional Instructions: General Surgical Discharge Instructions 1. No pushing, pulling, or lifting greater than 15 lbs for 2-4 weeks (depending upon procedure). 2. You may shower beginning today, but no tub baths, soaking, or swimming for 2 weeks. 3. You may resume driving when you are off narcotics and are safe to react in a car. 4. Take ibuprofen every 8 hours for discomfort. If this does not relieve discomfort, you may take the as needed Percocet. Take narcotics as directed. Do not take more narcotics then directed and do not share your narcotics with any other person. Do not drink alcohol while on narcotics. 5. Take stool softeners (Colace) or a water based laxative (Miralax) while taking narcotics. You may hold for loose stools. 6. Report any fevers greater than 100.5F, increase abdominal discomfort, drainage that looks like pus, increased redness or pain at the surgical site, or any vomiting. 7. Report any pain in the calves, shortness of breath, or rapid heartbeat. 8. Follow-up in the office as directed. 9. If you were prescribed antibiotics, do not stop them without talking to your provider. Referrals: Adriana Barrios CNP [Primary Care Provider] - Mariama Gonzales CNP [Advanced Practice Nurse] - 05/19/17 2:30 pm <Ignacio Campos - Last Filed: 05/13/17 14:07> Date of Encounter: 05/09/17 Objective Vital Signs - Last 8 Hours Temp Pulse Resp BP Pulse Ox 05/13/17 10:48 97.4 F L 93 18 114/80 96 05/13/17 07:35 97.9 F 96 18 95/57 93 Intake and Output 05/12/17 05/13/17 05/13/17 23:59 07:59 15:59 Intake Total 300 / 300 0 / 0 Output Total 2250 / 2250 750 / 750 500 / 500 Balance -1950 / -1950 -750 / -750 -500 / -500 Intake: IV Fluids 240 / 240 Maxipime 2,000 MG In Water for 40 / 40 inj. (sterile) 20 ML @ 300 mls/ hr IVP Q8HR [facility] Rx#:[id number] Potassium Chloride 10 mEq/100mL 200 / 200 10 meq In 100 ml @ 100 mls/hr IVPB Q1H [facility] Rx#:[id number] Oral 60 / 60 0 / 0 Output: Urine 600 / 600 750 / 750 500 / 500 Urine/Stool Mix 1650 / 1650 Other: Stool Size Small Stool Consistency soft Stool Color Brown Weight 140.8 kg Patient Weight 05/13/17 23:59 Weight 140.8 kg - Labs 05/13/17 10:00 05/13/17 04:55 Diabetes panel 05/13/17 Range/Units 04:55 Sodium 135 L (136-145) mEq/L Potassium 4.0 D (3.5-5.1) mEq/L Chloride 94 L (98-107) mEq/L Carbon Dioxide 28 (23-29) mEq/L BUN 10 (6-20) mg/dL Creatinine 0.54 L (0.60-1.20) mg/dL Glucose 90 (70-105) mg/dL Calcium 8.6 (8.6-10.3) mg/dL Calcium panel 05/13/17 Range/Units 04:55 Calcium 8.6 (8.6-10.3) mg/dL Pituitary panel 05/13/17 Range/Units 04:55 Sodium 135 L (136-145) mEq/L Potassium 4.0 D (3.5-5.1) mEq/L Chloride 94 L (98-107) mEq/L Carbon Dioxide 28 (23-29) mEq/L BUN 10 (6-20) mg/dL Creatinine 0.54 L (0.60-1.20) mg/dL Glucose 90 (70-105) mg/dL Calcium 8.6 (8.6-10.3) mg/dL Adrenal panel 05/13/17 Range/Units 04:55 Sodium 135 L (136-145) mEq/L Potassium 4.0 D (3.5-5.1) mEq/L Chloride 94 L (98-107) mEq/L Carbon Dioxide 28 (23-29) mEq/L BUN 10 (6-20) mg/dL Creatinine 0.54 L (0.60-1.20) mg/dL Glucose 90 (70-105) mg/dL Calcium 8.6 (8.6-10.3) mg/dL - Attending Attestation I examined this patient and my medical decision-making was reviewed with the Resident Physician. I agree with the documented findings, disposition and treatment plan as described except to the extent set forth below. The patient was seen and evaluated on morning rounds with rest. Abdominal examination overall has improved. Upper GI with Gastrografin fails to demonstrate any evidence of leak. We will continue to follow her clinically. Ignacio Campos MD FACS
[2017-05-09] MEDS: MetroNIDAZOLE 500 MG/100 ML 500 MG/100 ML BAG IVPB SCH ×2 (09:05→17:06)
[2017-05-09] MEDS: Levothyroxine Sodium 100 MCG VIAL IVP SCH (09:07)
[2017-05-09] MEDS: hydroCHLOROthiazide 25 MG TABLET PO SCH (09:08)
--- NOTE | 2017-05-09 09:58 | Electrocardiograph Report ---
[place] [id number] Test Date: 2017-05-09 Pat Name: Jasmyn Nicole Department: 115 Room: 3A33 Gender: F Recreational Assistant: : [id number] Requested By: Alma Pizano Order Number: [id number] Reading MD: Mariama Cunningham Measurements Intervals Latta Rate: 110 P: 42 IL: 150 QRS: -7 QRSD: 107 T: -18 QT: 311 QTc: 376 Interpretive Statements SINUS TACHYCARDIA ST DEVIATION AND MODERATE T-WAVE ABNORMALITY, CONSIDER ANTEROLATERAL ISCHEMIA ST DEVIATION AND MODERATE T-WAVE ABNORMALITY, CONSIDER INFERIOR ISCHEMIA Electronically Signed On 05-09-2017 9:57:06 EST by Mariama Cunningham
[2017-05-09] MEDS: Levofloxacin 750 MG/150 ML 750 MG/150 ML BAG IVPB SCH (10:15)
[2017-05-09] MEDS: Iron Sucrose Complex 400 MG in 0.9 % Sodium Chloride 250 ML IVPB ONE ×2 (11:00→14:00)
[2017-05-09] MEDS ORDERED: Perflutren Lipid Microsphere 1.3 ML in 0.9 % Sodium Chloride 8.7 ML IVP ONE (15:04)
[2017-05-09] MEDS ORDERED: Fluconazole 200 MG/100 ML 200 MG/100 ML BAG IVPB ONE (15:36)
[2017-05-09] MEDS: 0.9 % Sodium Chloride 1,000 ML IVC SCH (17:06)
[2017-05-09] MEDS: *HR* OxyCODONE/APAP 5/325 TABLET PO PRN (22:44)
[2017-05-10] MEDS: MetroNIDAZOLE 500 MG/100 ML 500 MG/100 ML BAG IVPB SCH ×3 (00:11→15:59)
[2017-05-10] MEDS: Ipratropium/Albuterol Neb 3 ML IH SCH ×4 (04:01→21:08)
[2017-05-10] MEDS: *HR* Heparin 5,000 UNIT/ML VIAL SQ SCH ×2 (05:34→18:04)
[2017-05-10 05:43] LABS: Eosinophils # 0.7 K/mcL (0.0-0.6); Hematocrit 32.9 % (35.3-44.9); Hemoglobin 10.6 g/dL (11.5-15.4); Mean Corpuscular HGB Conc 32.2 g/dL (31.6-35.5); Mean Corpuscular Hemoglobin 25.5 pg (28.0-33.3); Mean Corpuscular Volume 79.1 fL (83.0-100.0); Mean Platelet Volume 9.9 fL (9.4-12.4); Platelet Count 442 K/mcL (140-400); Red Blood Count 4.16 M/mcL (3.82-4.97); Red Cell Distribution Width 16.1 % (11.5-14.5)
[2017-05-10 06:05] LABS: Monocytes # 3.3 K/mcL (0.0-1.3); Neutrophils # 9.6 K/mcL (1.6-8.9)
[2017-05-10 06:13] LABS: BUN/Creatinine Ratio 21 (6-26); Blood Urea Nitrogen 13 mg/dL (6-20); Calcium 8.2 mg/dL (8.6-10.3); Carbon Dioxide 25 mEq/L (23-29); Chloride 99 mEq/L (98-107); Glucose 101 mg/dL (70-105); Magnesium 2.3 mg/dL (1.6-2.6); Osmolality,Calculated 280 (280-300); Phosphorous 2.9 mg/dL (2.7-4.5); Potassium 2.7 mEq/L (3.5-5.1); Sodium 135 mEq/L (136-145); eGFR For African Americans > 60 (> 60); eGFR For Non-African Americans > 60 (> 60)
[2017-05-10] MEDS: hydroCHLOROthiazide 25 MG TABLET PO SCH (08:54)
[2017-05-10] MEDS: Levothyroxine Sodium 100 MCG VIAL IVP SCH (08:57)
[2017-05-10] MEDS: Levofloxacin 750 MG/150 ML 750 MG/150 ML BAG IVPB SCH (08:57)
[2017-05-10] MEDS: Fluconazole 100 MG/50 ML 100 MG/50 ML BAG IVPB SCH (10:43)
[2017-05-10] MEDS: 0.9 % Sodium Chloride 1,000 ML IVC SCH (11:50)
[2017-05-10] MEDS: *HR* OxyCODONE/APAP 5/325 TABLET PO PRN ×2 (14:25→20:42)
[2017-05-10] MEDS: Ondansetron 4 MG/2 ML VIAL IVP PRN (21:02)
[2017-05-11] MEDS: MetroNIDAZOLE 500 MG/100 ML 500 MG/100 ML BAG IVPB SCH ×4 (00:07→23:07)
[2017-05-11] MEDS: Ipratropium/Albuterol Neb 3 ML IH SCH ×4 (04:25→21:46)
[2017-05-11 05:16] LABS: BUN/Creatinine Ratio 14 (6-26); Blood Urea Nitrogen 8 mg/dL (6-20); Calcium 8.2 mg/dL (8.6-10.3); Carbon Dioxide 29 mEq/L (23-29); Chloride 98 mEq/L (98-107); Glucose 94 mg/dL (70-105); Magnesium 2.2 mg/dL (1.6-2.6); Osmolality,Calculated 278 (280-300); Phosphorous 3.9 mg/dL (2.7-4.5); Potassium 3.2 mEq/L (3.5-5.1); Sodium 135 mEq/L (136-145); eGFR For African Americans > 60 (> 60); eGFR For Non-African Americans > 60 (> 60)
[2017-05-11] MEDS: *HR* Heparin 5,000 UNIT/ML VIAL SQ SCH ×2 (06:23→16:59)
[2017-05-11] MEDS: 0.9 % Sodium Chloride 1,000 ML IVC SCH (08:09)
[2017-05-11] MEDS: Levofloxacin 750 MG/150 ML 750 MG/150 ML BAG IVPB SCH (08:10)
[2017-05-11] MEDS: hydroCHLOROthiazide 25 MG TABLET PO SCH (08:11)
[2017-05-11] MEDS: Levothyroxine Sodium 100 MCG VIAL IVP SCH (08:12)
[2017-05-11] MEDS: Fluconazole 100 MG/50 ML 100 MG/50 ML BAG IVPB SCH (09:39)
--- NOTE | 2017-05-11 12:19 | General Surgery Progress Note ---
Date of Encounter: 05/10/17 Time of Encounter: 09:35 - Assessment and Plan (1) Acute cholecystitis Current Visit: Yes Status: Acute I reviewed the echocardiogram with Dr. Campbell. We will continue conservative measures at this point. I cannot identify any significant new issue that is responsible for her chest discomfort and heaviness as well as shortness of breath. Subjective Patient reports: other Narrative: This is a 51-year-old female that has had a complicated operative course. She is currently complaining of heaviness in her chest. She has undergone an extensive workup with regards to her cardiac history. She underwent an echocardiogram and was identified to have normal LV function. She is also complaining of shortness of breath. She reports a bowel movement however no flatus. She denies any significant appetite at this point. Objective Vital Signs - Last 8 Hours Temp Pulse Resp BP Pulse Ox 05/11/17 11:17 98.8 F 104 16 126/70 91 05/11/17 11:02 15 94 05/11/17 05:17 99.2 F 100 14 151/83 93 05/11/17 04:25 14 96 Intake and Output 05/10/17 05/11/17 05/11/17 23:59 07:59 15:59 Intake Total 100 / 100 1220 / 1220 780 / 780 Output Total 1000 / 1000 200 / 200 0 / 0 Balance -900 / -900 1020 / 1020 780 / 780 Intake: IV Fluids 100 / 100 1100 / 1100 300 / 300 0.9 % Sodium Chloride 1,000 ML 1000 / 1000 @ 50 mls/hr IVC .Q20H [facility] Rx#: [id number] Diflucan 100 MG/50 ML 100 mg In 50 / 50 50 ml @ 50 mls/hr IVPB DAILY [facility] Rx#:[id number] Levaquin Premix 750mg/150 mL 150 / 150 750 mg In 150 ml @ 100 mls/hr IVPB DAILY [facility] Rx#:[id number] Flagyl Premix 500 MG/100 ML 500 100 / 100 100 / 100 100 / 100 mg In 100 ml @ 100 mls/hr IVPB Q8HR [facility] Rx#:[id number] Oral 0 / 0 120 / 120 480 / 480 Output: Urine 1000 / 1000 200 / 200 0 / 0 Other: Meal Breakfast Percent of Meal Consumed 10% Weight 140.614 kg Patient Weight 05/11/17 23:59 Weight 140.614 kg - General physical appearance well nourished - Eyes PERRL - ENT normal nares - Respiratory normal expansion - Abdomen Abdomen: Present: bowel sounds present, soft - Incision Incision: Present: clean and dry - Neurologic CN 2-12 grossly intact, normal sensation - Labs 05/10/17 05:30 05/11/17 04:30 Diabetes panel 05/11/17 Range/Units 04:30 Sodium 135 L (136-145) mEq/L Potassium 3.2 L (3.5-5.1) mEq/L Chloride 98 (98-107) mEq/L Carbon Dioxide 29 (23-29) mEq/L BUN 8 (6-20) mg/dL Creatinine 0.56 L (0.60-1.20) mg/dL Glucose 94 (70-105) mg/dL Calcium 8.2 L (8.6-10.3) mg/dL Calcium panel 05/11/17 Range/Units 04:30 Calcium 8.2 L (8.6-10.3) mg/dL Phosphorus 3.9 (2.7-4.5) mg/dL Pituitary panel 05/11/17 Range/Units 04:30 Sodium 135 L (136-145) mEq/L Potassium 3.2 L (3.5-5.1) mEq/L Chloride 98 (98-107) mEq/L Carbon Dioxide 29 (23-29) mEq/L BUN 8 (6-20) mg/dL Creatinine 0.56 L (0.60-1.20) mg/dL Glucose 94 (70-105) mg/dL Calcium 8.2 L (8.6-10.3) mg/dL Adrenal panel 05/11/17 Range/Units 04:30 Sodium 135 L (136-145) mEq/L Potassium 3.2 L (3.5-5.1) mEq/L Chloride 98 (98-107) mEq/L Carbon Dioxide 29 (23-29) mEq/L BUN 8 (6-20) mg/dL Creatinine 0.56 L (0.60-1.20) mg/dL Glucose 94 (70-105) mg/dL Calcium 8.2 L (8.6-10.3) mg/dL - VTE Reasons for not Prescribing Prophylaxis: Treatment not Indicated - Low risk for VTE Documentation of Mechanical Device: Intermittent pneumatic compression device Consult Discharge Plan - Plan Instructions: Laparoscopic Cholecystectomy (DC) Additional Instructions: General Surgical Discharge Instructions 1. No pushing, pulling, or lifting greater than 15 lbs for 2-4 weeks (depending upon procedure). 2. You may shower beginning today, but no tub baths, soaking, or swimming for 2 weeks. 3. You may resume driving when you are off narcotics and are safe to react in a car. 4. Take ibuprofen every 8 hours for discomfort. If this does not relieve discomfort, you may take the as needed Percocet. Take narcotics as directed. Do not take more narcotics then directed and do not share your narcotics with any other person. Do not drink alcohol while on narcotics. 5. Take stool softeners (Colace) or a water based laxative (Miralax) while taking narcotics. You may hold for loose stools. 6. Report any fevers greater than 100.5F, increase abdominal discomfort, drainage that looks like pus, increased redness or pain at the surgical site, or any vomiting. 7. Report any pain in the calves, shortness of breath, or rapid heartbeat. 8. Follow-up in the office as directed. 9. If you were prescribed antibiotics, do not stop them without talking to your provider. Referrals: Adriana Barrios CNP [Primary Care Provider] - Mariama Gonzales CNP [Advanced Practice Nurse] - 05/19/17 2:30 pm
--- NOTE | 2017-05-11 12:21 | General Surgery Progress Note ---
Date of Encounter: 05/11/17 Time of Encounter: 12:20 - Assessment and Plan (1) Acute cholecystitis Current Visit: Yes Status: Acute I reviewed the echocardiogram with Dr. Campbell. We will continue conservative measures at this point. I cannot identify any significant new issue that is responsible for her chest discomfort and heaviness as well as shortness of breath. I am going to ask the hospitalist group to see her to evaluate her for shortness of breath. Subjective Patient reports: still having pain, pain is less, no flatus Objective Vital Signs - Last 8 Hours Temp Pulse Resp BP Pulse Ox 05/11/17 11:17 98.8 F 104 16 126/70 91 05/11/17 11:02 15 94 05/11/17 05:17 99.2 F 100 14 151/83 93 05/11/17 04:25 14 96 Intake and Output 05/10/17 05/11/17 05/11/17 23:59 07:59 15:59 Intake Total 100 / 100 1220 / 1220 780 / 780 Output Total 1000 / 1000 200 / 200 0 / 0 Balance -900 / -900 1020 / 1020 780 / 780 Intake: IV Fluids 100 / 100 1100 / 1100 300 / 300 0.9 % Sodium Chloride 1,000 ML 1000 / 1000 @ 50 mls/hr IVC .Q20H [facility] Rx#: [id number] Diflucan 100 MG/50 ML 100 mg In 50 / 50 50 ml @ 50 mls/hr IVPB DAILY [facility] Rx#:[id number] Levaquin Premix 750mg/150 mL 150 / 150 750 mg In 150 ml @ 100 mls/hr IVPB DAILY [facility] Rx#:[id number] Flagyl Premix 500 MG/100 ML 500 100 / 100 100 / 100 100 / 100 mg In 100 ml @ 100 mls/hr IVPB Q8HR [facility] Rx#:[id number] Oral 0 / 0 120 / 120 480 / 480 Output: Urine 1000 / 1000 200 / 200 0 / 0 Other: Meal Breakfast Percent of Meal Consumed 10% Weight 140.614 kg Patient Weight 05/11/17 23:59 Weight 140.614 kg - General physical appearance no distress - Eyes PERRL - ENT normal nares - Neck Neck exam: trachea midline - Respiratory normal expansion - Abdomen Abdomen: Present: bowel sounds present, soft - Labs 05/10/17 05:30 05/11/17 04:30 Diabetes panel 05/11/17 Range/Units 04:30 Sodium 135 L (136-145) mEq/L Potassium 3.2 L (3.5-5.1) mEq/L Chloride 98 (98-107) mEq/L Carbon Dioxide 29 (23-29) mEq/L BUN 8 (6-20) mg/dL Creatinine 0.56 L (0.60-1.20) mg/dL Glucose 94 (70-105) mg/dL Calcium 8.2 L (8.6-10.3) mg/dL Calcium panel 05/11/17 Range/Units 04:30 Calcium 8.2 L (8.6-10.3) mg/dL Phosphorus 3.9 (2.7-4.5) mg/dL Pituitary panel 05/11/17 Range/Units 04:30 Sodium 135 L (136-145) mEq/L Potassium 3.2 L (3.5-5.1) mEq/L Chloride 98 (98-107) mEq/L Carbon Dioxide 29 (23-29) mEq/L BUN 8 (6-20) mg/dL Creatinine 0.56 L (0.60-1.20) mg/dL Glucose 94 (70-105) mg/dL Calcium 8.2 L (8.6-10.3) mg/dL Adrenal panel 05/11/17 Range/Units 04:30 Sodium 135 L (136-145) mEq/L Potassium 3.2 L (3.5-5.1) mEq/L Chloride 98 (98-107) mEq/L Carbon Dioxide 29 (23-29) mEq/L BUN 8 (6-20) mg/dL Creatinine 0.56 L (0.60-1.20) mg/dL Glucose 94 (70-105) mg/dL Calcium 8.2 L (8.6-10.3) mg/dL - VTE Reasons for not Prescribing Prophylaxis: Treatment not Indicated - Low risk for VTE Documentation of Mechanical Device: Intermittent pneumatic compression device Consult Discharge Plan - Plan Instructions: Laparoscopic Cholecystectomy (DC) Additional Instructions: General Surgical Discharge Instructions 1. No pushing, pulling, or lifting greater than 15 lbs for 2-4 weeks (depending upon procedure). 2. You may shower beginning today, but no tub baths, soaking, or swimming for 2 weeks. 3. You may resume driving when you are off narcotics and are safe to react in a car. 4. Take ibuprofen every 8 hours for discomfort. If this does not relieve discomfort, you may take the as needed Percocet. Take narcotics as directed. Do not take more narcotics then directed and do not share your narcotics with any other person. Do not drink alcohol while on narcotics. 5. Take stool softeners (Colace) or a water based laxative (Miralax) while taking narcotics. You may hold for loose stools. 6. Report any fevers greater than 100.5F, increase abdominal discomfort, drainage that looks like pus, increased redness or pain at the surgical site, or any vomiting. 7. Report any pain in the calves, shortness of breath, or rapid heartbeat. 8. Follow-up in the office as directed. 9. If you were prescribed antibiotics, do not stop them without talking to your provider. Referrals: Adriana Barrios CNP [Primary Care Provider] - Mariama Gonzales CNP [Advanced Practice Nurse] - 05/19/17 2:30 pm
[2017-05-11 18:47] LABS: Bilirubin,Urine Negative (Negative); Blood,Urine Negative (Negative); Clarity,Urine Cloudy (Clear); Color,Urine Yellow (Yellow); Glucose,Urine (UA) Normal (Normal); Ketones,Urine 80 mg/dL (Negative); Leukocyte Esterase,Urine Negative (Negative); Nitrite,Urine Negative (Negative); Protein,Urine Negative (Neg-Trace); Urobilinogen,Urine Normal (Normal)
[2017-05-11 18:50] LABS: Bacteria,Urine None Seen per hpf (None-Few); Hyaline Casts,Urine None Seen per lpf (None-Few); Squamous Epithelial Cell,Urine Many per lpf (None-Few); WBC,Urine 0-3 per hpf (0-3)
[2017-05-11] MEDS: *HR* OxyCODONE/APAP 5/325 TABLET PO PRN (23:17)
[2017-05-12] MEDS: Ipratropium/Albuterol Neb 3 ML IH SCH ×4 (03:59→21:47)
[2017-05-12] MEDS: *HR* Heparin 5,000 UNIT/ML VIAL SQ SCH ×2 (05:02→17:42)
[2017-05-12 06:33] LABS: BUN/Creatinine Ratio 20 (6-26); Blood Urea Nitrogen 10 mg/dL (6-20); Calcium 8.4 mg/dL (8.6-10.3); Carbon Dioxide 28 mEq/L (23-29); Chloride 97 mEq/L (98-107); Glucose 88 mg/dL (70-105); Magnesium 2.2 mg/dL (1.6-2.6); Osmolality,Calculated 278 (280-300); Phosphorous 3.7 mg/dL (2.7-4.5); Potassium 3.1 mEq/L (3.5-5.1); Sodium 135 mEq/L (136-145); eGFR For African Americans > 60 (> 60); eGFR For Non-African Americans > 60 (> 60)
[2017-05-12 07:40] LABS: Hemoglobin 11.1 g/dL (11.5-15.4); Red Cell Distribution Width 16.5 % (11.5-14.5)
[2017-05-12 07:41] LABS: Hematocrit 33.6 % (35.3-44.9); Mean Corpuscular Hemoglobin 25.7 pg (28.0-33.3); Mean Corpuscular Volume 77.8 fL (83.0-100.0); Mean Platelet Volume 10.4 fL (9.4-12.4); Platelet Count 420 K/mcL (140-400); Red Blood Count 4.32 M/mcL (3.82-4.97)
[2017-05-12 08:29] LABS: Carcinoembryonic Antigen 1.2 ng/mL (Less than 5.0)
[2017-05-12] MEDS: hydroCHLOROthiazide 25 MG TABLET PO SCH (08:39)
[2017-05-12 09:00] LABS: Anisocytosis 1+ (Not Present); Eosinophils # 0.5 K/mcL (0.0-0.6); Lymphocytes # 7.5 K/mcL (0.6-4.6); Macrocytosis Present (Not Present); Monocytes # 3.5 K/mcL (0.0-1.3); Neutrophils # 13.5 K/mcL (1.6-8.9); Platelet Estimate Normal (Normal); Reactive Lymphocytes Present (Not Present); Toxic Granulation Present (Not Present)
[2017-05-12] MEDS: 0.9 % Sodium Chloride 1,000 ML IVC SCH (10:05)
[2017-05-12] MEDS: Levofloxacin 750 MG/150 ML 750 MG/150 ML BAG IVPB SCH (10:06)
[2017-05-12] MEDS: MetroNIDAZOLE 500 MG/100 ML 500 MG/100 ML BAG IVPB SCH (10:06)
[2017-05-12] MEDS: Fluconazole 100 MG/50 ML 100 MG/50 ML BAG IVPB SCH (10:06)
[2017-05-12] MEDS: Levothyroxine Sodium 100 MCG VIAL IVP SCH (10:06)
--- NOTE | 2017-05-12 10:35 | General Surgery Progress Note ---
Addendum entered and electronically signed by Rebekah Rae MD 05/12/17 11 :50: Patient failed O2 oxygen walk test. Hypoxic at 88% without supplemental oxygen while getting off of bed. Addendum entered and electronically signed by Rebekah Rae MD 05/12/17 11 :29: Patient complaining of new lower extremity edema overnight. States she feels "heavy." -Will FU with cardiology and order BNP. Original Note: <Rebekah Rae - Last Filed: 05/12/17 11:24> Date of Encounter: 05/12/17 Time of Encounter: 10:33 - Assessment and Plan (1) Acute cholecystitis Current Visit: Yes Status: Acute POD #6 s/p lap shania 05/05/2017 -Upper GI series 05/08/2017- no acute abnormality involving the stomach, esophagus or duodenum. No evidence of leak. Persistent subdiaphragmatic free air , as seen on CT. -CT abdomen 05/07/2017-large amount of free intraperitoneal air, greater than expected 2 days postop. Ascities and mild infiltration of mesenteric fat. Findings worrisome for perforation. Largest quantity of focal gas is seen within the LUQ. Small quantity of fluid in gallbladder fossa not unexpected 2 days postop. No evidence of pulmonary embolic disease. Small Left pleural effusion. Bilateral lower lobe atelectatsis. -Echo 05/09/2017- LVEF 60-65%, no segmental dysfunction, no significant valvular dysfunction. -Patient resting comfortably this morning, however, she states she is having difficulty with SOB and discomfort during ambulation. States her pain has improved. Positive flatus and BM's. Abdominal exam benign. -Leukocytosis overnight, (WBC 25.0 up from 16.6 yesterday). -Will consult medicine for persistent shortness of breath, wheezing, elevated WBC. -Physical therapy consult. -CXR 05/12/2017- stable left basilar airspace disease. Continued radiographic FU recommended. Pneumoperitoneum as on previous CXR. Subjective Patient reports: still having pain, tolerating liquids well, voiding w/o difficulty, flatus, bowel movement, shortness of breath, afebrile Objective Vital Signs - Last 8 Hours Temp Pulse Resp BP Pulse Ox 05/12/17 09:07 14 93 05/12/17 05:16 98.2 F 90 14 105/66 93 Intake and Output 05/11/17 05/12/17 05/12/17 23:59 07:59 15:59 Intake Total 440 / 440 1160 / 1160 240 / 240 Output Total 700 / 700 0 / 0 Balance -260 / -260 1160 / 1160 240 / 240 Intake: IV Fluids 200 / 200 1100 / 1100 0.9 % Sodium Chloride 1,000 ML 1000 / 1000 @ 50 mls/hr IVC .Q20H [facility] Rx#: [id number] Flagyl Premix 500 MG/100 ML 500 100 / 100 100 / 100 mg In 100 ml @ 100 mls/hr IVPB Q8HR [facility] Rx#:[id number] Oral 240 / 240 60 / 60 240 / 240 Output: Urine 700 / 700 0 / 0 Other: Stool Size Moderate Large Stool Consistency soft liquid soft Stool Color Brown Brown # Bowel Movements 1 1 Blood Glucose* 89 84 - General physical appearance well developed, well nourished, moderate distress, obese - Eyes normal ocular movement - Neck Neck exam: trachea midline, no venous distension - Respiratory normal expansion, other (diminished air movement at bilateral bases, Wheezes auscultated bilaterally.) - Cardiovascular Cardiovascular exam: Present: RRR - Abdomen Abdomen: Present: bowel sounds present, soft, tender. Absent: guarding, rebound , rigid Abdominal Tenderness: RLQ, LLQ Hernia: none - Incision Incision: Present: clean and dry, intact. Absent: erythema - Integumentary no rash - Neurologic CN 2-12 grossly intact - Psychiatric oriented to time, oriented to person, oriented to place, speech is normal, memory intact - Labs 05/12/17 07:19 05/12/17 05:58 Diabetes panel 05/12/17 Range/Units 05:58 Sodium 135 L (136-145) mEq/L Potassium 3.1 L (3.5-5.1) mEq/L Chloride 97 L (98-107) mEq/L Carbon Dioxide 28 (23-29) mEq/L BUN 10 (6-20) mg/dL Creatinine 0.49 L (0.60-1.20) mg/dL Glucose 88 (70-105) mg/dL Calcium 8.4 L (8.6-10.3) mg/dL Calcium panel 05/12/17 Range/Units 05:58 Calcium 8.4 L (8.6-10.3) mg/dL Phosphorus 3.7 (2.7-4.5) mg/dL Pituitary panel 05/12/17 Range/Units 05:58 Sodium 135 L (136-145) mEq/L Potassium 3.1 L (3.5-5.1) mEq/L Chloride 97 L (98-107) mEq/L Carbon Dioxide 28 (23-29) mEq/L BUN 10 (6-20) mg/dL Creatinine 0.49 L (0.60-1.20) mg/dL Glucose 88 (70-105) mg/dL Calcium 8.4 L (8.6-10.3) mg/dL Adrenal panel 05/12/17 Range/Units 05:58 Sodium 135 L (136-145) mEq/L Potassium 3.1 L (3.5-5.1) mEq/L Chloride 97 L (98-107) mEq/L Carbon Dioxide 28 (23-29) mEq/L BUN 10 (6-20) mg/dL Creatinine 0.49 L (0.60-1.20) mg/dL Glucose 88 (70-105) mg/dL Calcium 8.4 L (8.6-10.3) mg/dL - VTE Reasons for not Prescribing Prophylaxis: Treatment not Indicated - Low risk for VTE Documentation of Mechanical Device: Intermittent pneumatic compression device Consult Discharge Plan - Plan Instructions: Laparoscopic Cholecystectomy (DC) Additional Instructions: General Surgical Discharge Instructions 1. No pushing, pulling, or lifting greater than 15 lbs for 2-4 weeks (depending upon procedure). 2. You may shower beginning today, but no tub baths, soaking, or swimming for 2 weeks. 3. You may resume driving when you are off narcotics and are safe to react in a car. 4. Take ibuprofen every 8 hours for discomfort. If this does not relieve discomfort, you may take the as needed Percocet. Take narcotics as directed. Do not take more narcotics then directed and do not share your narcotics with any other person. Do not drink alcohol while on narcotics. 5. Take stool softeners (Colace) or a water based laxative (Miralax) while taking narcotics. You may hold for loose stools. 6. Report any fevers greater than 100.5F, increase abdominal discomfort, drainage that looks like pus, increased redness or pain at the surgical site, or any vomiting. 7. Report any pain in the calves, shortness of breath, or rapid heartbeat. 8. Follow-up in the office as directed. 9. If you were prescribed antibiotics, do not stop them without talking to your provider. Referrals: Adriana Barrios CNP [Primary Care Provider] - Mariama Gonzales CNP [Advanced Practice Nurse] - 05/19/17 2:30 pm <Ignacio Campos - Last Filed: 05/13/17 14:21> Date of Encounter: 05/12/17 Objective Vital Signs - Last 8 Hours Temp Pulse Resp BP Pulse Ox 05/13/17 10:48 97.4 F L 93 18 114/80 96 05/13/17 07:35 97.9 F 96 18 95/57 93 Intake and Output 05/12/17 05/13/17 05/13/17 23:59 07:59 15:59 Intake Total 300 / 300 0 / 0 Output Total 2250 / 2250 750 / 750 500 / 500 Balance -1950 / -1950 -750 / -750 -500 / -500 Intake: IV Fluids 240 / 240 Maxipime 2,000 MG In Water for 40 / 40 inj. (sterile) 20 ML @ 300 mls/ hr IVP Q8HR [facility] Rx#:[id number] Potassium Chloride 10 mEq/100mL 200 / 200 10 meq In 100 ml @ 100 mls/hr IVPB Q1H [facility] Rx#:[id number] Oral 60 / 60 0 / 0 Output: Urine 600 / 600 750 / 750 500 / 500 Urine/Stool Mix 1650 / 1650 Other: Stool Size Small Stool Consistency soft Stool Color Brown Weight 140.8 kg Patient Weight 05/13/17 23:59 Weight 140.8 kg - Labs 05/13/17 10:00 05/13/17 04:55 Diabetes panel 05/13/17 Range/Units 04:55 Sodium 135 L (136-145) mEq/L Potassium 4.0 D (3.5-5.1) mEq/L Chloride 94 L (98-107) mEq/L Carbon Dioxide 28 (23-29) mEq/L BUN 10 (6-20) mg/dL Creatinine 0.54 L (0.60-1.20) mg/dL Glucose 90 (70-105) mg/dL Calcium 8.6 (8.6-10.3) mg/dL Calcium panel 05/13/17 Range/Units 04:55 Calcium 8.6 (8.6-10.3) mg/dL Pituitary panel 05/13/17 Range/Units 04:55 Sodium 135 L (136-145) mEq/L Potassium 4.0 D (3.5-5.1) mEq/L Chloride 94 L (98-107) mEq/L Carbon Dioxide 28 (23-29) mEq/L BUN 10 (6-20) mg/dL Creatinine 0.54 L (0.60-1.20) mg/dL Glucose 90 (70-105) mg/dL Calcium 8.6 (8.6-10.3) mg/dL Adrenal panel 05/13/17 Range/Units 04:55 Sodium 135 L (136-145) mEq/L Potassium 4.0 D (3.5-5.1) mEq/L Chloride 94 L (98-107) mEq/L Carbon Dioxide 28 (23-29) mEq/L BUN 10 (6-20) mg/dL Creatinine 0.54 L (0.60-1.20) mg/dL Glucose 90 (70-105) mg/dL Calcium 8.6 (8.6-10.3) mg/dL - Attending Attestation I examined this patient and my medical decision-making was reviewed with the Resident Physician. I agree with the documented findings, disposition and treatment plan as described except to the extent set forth below. The patient is seen in evaluated for morning rounds with rest of and the clinical data is discussed in shared with the clinical nurse practitioner. She continues to complain of 3 out of 10 pain, but this is markedly improved. She is tolerating a diet and having bowel movements. We will continue to work with her hypoxia in anticipation of discharge. Ignacio Campos MD FACS
[2017-05-12] MEDS ORDERED: Furosemide 40 MG/4 ML VIAL IVP ONE (12:34)
--- NOTE | 2017-05-12 12:39 | Cardiology Consult Note ---
<Shagufta Winn Jesus Manuel - Last Filed: 05/12/17 12:48> Date of Encounter: 05/12/17 Time of Encounter: 12:10 Assessment and Plan (1) Chest pain Current Visit: Yes Status: Acute Atypical chest pain, suspect pleurtic in etiology. Troponin negative x2. Non-specific ECG changes when compared to previous ECG in 2015. Risk factors for CAD include: former tobacco use, obesity, family hx, and HTN. Would recommend stress test in the outpatient setting once recovered from surgery. Risk factor modification including heart healthy diet, weight loss, and daily exercise. Will coordinate appt with [facility] in the outpatient setting. Qualifiers: Chest pain type: chest pain on breathing Qualified Code(s): R07.1 - Chest pain on breathing; R07.81 - Pleurodynia (2) Shortness of breath Current Visit: Yes Status: Acute Pt. reports worsening shortness of breath since 05/07/17, Cardiology consulted today. POD #6 lap [facility] for acute cholecystitis. BNP=51. TTE 05/11/17: EF 60-65%, normal wall motion, mild LVDD, no significant valvular dysfunction. CXR: stable left basilar airspace disease, pneumoperitoneum. Cumulative I&O: +4954 mL. Patient reports baseline weight ~300 lbs, weight on was 312 lbs. Suspect volume overload contributing to worsening shortness of breath, will trial IV lasix x1 dose now. Replace electrolytes accordingly (K=3.1, IV rider ordered). WBC trending up, now 25. Low grade temp noted over the past several days. Encouraged frequent I.S. hourly while awake. Strict I&Os and daily weights. Would avoid supplemental IVF as patient is taking PO. Will continue to follow. Discussion w patient/family: The assessment and plan as outlined above was discussed with the patient and/or family members who expressed understanding and agreement. All questions were answered. Thank you for involving us in the care of your patient. Please call with any questions. The patient will be discussed and reviewed with Dr. Hernandez; changes to be made accordingly. History of Present Illness Consult date: 05/12/17 Requesting physician: Alma Pizano Consult reason: Chest pain, shortness of breath Chief complaint: Chest pain, shortness of breath History of present illness: Ms. Nicole is a 51 year old female with PMHx significant for thyroid CA and HTN who initially presented to the ED as transfer from outside hospital with acute cholecystitis on 05/04/2017. She is POD #6 from [facility]. Cardiology consulted today for chest pain, shortness of breath, and leg heaviness. Patient reports chest discomfort has been nearly constant since Friday, pain is described as heaviness and worsens when taking a deep breath. Reports edema to upper and lower extremities. She notes that her baseline weight is 300 lbs. Per report, post operative complications included urinary retention and uncontrolled abdominal pain which have contributed to prolonged hospitalization. Past Med Surg Social Fam HX - Past Medical History Attestation: Yes The following information was validated with the patient. Source: unable to obtain Medical history: cancer, hypertension Psychiatric history: no psych history - Past Surgical History Surgical History: cholecystectomy - Social History Smoking Status: Former smoker Smokeless Tobacco Status: No Alcohol use: occasionally Drug use: none - Family History Mother Living Status: Age at : 83 Cause of : sepsis Hx Family Cardiac Disorders: Yes (CHF, HTN) Medications and Allergies Liothyronine Sodium [Cytomel] 5 mcg PO DAILY 05/05/17 [History] Omeprazole [PriLOSEC] 20 mg PO DAILY 05/05/17 [History] hydroCHLOROthiazide [Hydrochlorothiazide] 25 mg PO DAILY 05/05/17 [History] Docusate Sodium [Colace] 100 mg PO BID PRN #30 capsule 05/06/17 [Rx] Ibuprofen 800 mg PO Q8H #30 tablet 05/06/17 [Rx] OxyCODONE/APAP 5/325 [Percocet 5/325 MG] 1 each PO Q6HR PRN 7 Days #28 tablet [Rx] 3 Allergy/AdvReac Type Severity Reaction Status Date / Time Penicillins [PCN] AdvReac "FELT Verified 05/05/17 07:21 STRANGE" All Systems Review: A 10-system review of systems was performed and is negative for pertinent findings except as documented above in the HPI. - Cardiovascular Cardiovascular: as per HPI Physical Examination Vital Signs, Last 4 Hours Temp Pulse Resp BP Pulse Ox 05/12/17 11:14 96 05/12/17 10:40 97.4 F L 95 14 108/67 96 05/12/17 09:07 14 93 General: Conversant, Other (obese) HEENT: Atraumatic, Normocephaly Neck: No JVD Cardiac: Reg Rate and Rhythm, Normal S1 and S2 Lungs: Normal Breath Sounds Neuro: Alert and responsive Abdomen: Other (large, soft. ) Skin: No rashes noted on visualized skin Musculoskeletal: No Chest Wall Tenderness Extremities: Other (mild, non-pitting BLE edema. ) Results 05/12/17 07:19 05/12/17 05:58 Lab Results 05/12/17 05/12/17 05/12/17 05:58 07:19 11:49 WBC 25.0 H D Hgb 11.1 L Hct 33.6 L Plt Count 420 H Sodium 135 L Potassium 3.1 L Chloride 97 L Carbon Dioxide 28 BUN 10 Creatinine 0.49 L Glucose 88 Calcium 8.4 L Magnesium 2.2 B-Natriuretic Peptide 181 H Active Medications Albuterol/Ipratropium (Duoneb) 3 ml IH [id number] [facility] Stop: 11/06/17 10:01 Last Admin: 05/12/17 09:05 Dose: 3 ml Dextrose/Water (Dextrose 50% (Syg)) 25 ml IVP AD PRN PRN Reason: Hypoglycemia Stop: 11/03/17 16:39 Glucagon (Glucagen) 1 mg IM ONCE PRN PRN Reason: Hypoglycemia Stop: 11/03/17 16:39 Glucose (Gluctose) 15 gm PO ONCE PRN PRN Reason: Hypoglycemia Stop: 11/03/17 16:39 Glucose (Gluctose) 30 gm PO ONCE PRN PRN Reason: Hypoglycemia Stop: 11/03/17 16:39 Heparin Sodium (Porcine) (Heparin) 5,000 unit SQ Q12HCO [facility] Stop: 11/03/17 18:01 Last Admin: 05/12/17 05:02 Dose: 5,000 unit Hydrochlorothiazide (Hydrochlorothiazide) 25 mg PO DAILY [facility] PRN Reason: Protocol Stop: 11/05/17 09:01 Last Admin: 05/12/17 08:39 Dose: 25 mg Dextrose (Dextrose 5%) 1,000 mls @ 100 mls/hr IVC .Q10H PRN PRN Reason: HYPOGLYCEMIA Stop: 11/03/17 16:39 Metronidazole (Flagyl Premix 500 Mg/100 Ml) 500 mg in 100 mls @ 100 mls/hr IVPB Q8HR [facility] Stop: 11/03/17 16:01 Last Admin: 05/12/17 10:06 Dose: 100 mls/hr Levofloxacin/Dextrose (Levaquin Premix 750mg/150 Ml) 750 mg in 150 mls @ 100 mls/hr IVPB DAILY [facility] PRN Reason: Protocol Stop: 11/07/17 14:01 Last Admin: 05/12/17 10:06 Dose: 100 mls/hr Fluconazole (Diflucan 100 Mg/50 Ml) 100 mg in 50 mls @ 50 mls/hr IVPB DAILY [facility] Stop: 11/09/17 09:01 Last Admin: 05/12/17 10:06 Dose: 50 mls/hr Sodium Chloride (0.9 % Sodium Chloride) 1,000 mls @ 50 mls/hr IVC .Q20H [facility] Stop: 11/08/17 15:46 Last Admin: 05/12/17 10:05 Dose: 50 mls/hr Potassium Chloride (Potassium Chloride 10 Meq/100ml) 10 meq in 100 mls @ 100 mls/hr IVPB Q1H [facility] Stop: 05/12/17 16:14 Levothyroxine Sodium (Synthroid) 62.5 mcg IVP DAILY [facility] Stop: 11/04/17 09:01 Last Admin: 05/12/17 10:06 Dose: 62.5 mcg Liothyronine Sodium (Cytomel) 2.5 mcg PO BID [facility] Stop: 11/05/17 09:01 Last Admin: 05/12/17 08:39 Dose: 2.5 mcg Liothyronine Sodium (Cytomel) 5 mcg PO DAILY [facility] Stop: 11/05/17 09:01 Last Admin: 05/12/17 08:39 Dose: 5 mcg Metoprolol Tartrate (Lopressor) 5 mg IVP Q6HR PRN PRN Reason: Hypertension Stop: 11/03/17 13:41 Last Admin: 05/10/17 20:42 Dose: 5 mg Naloxone HCl (Narcan) 0.4 mg IVP Q2MIN PRN PRN Reason: SEE COMMENTS Stop: 11/03/17 16:39 Omeprazole (Prilosec) 20 mg PO DAILY [facility] PRN Reason: Protocol Stop: 11/05/17 09:01 Last Admin: 05/12/17 08:39 Dose: 20 mg Ondansetron HCl (Zofran) 4 mg IVP Q6HR PRN PRN Reason: Nausea And Vomiting Stop: 11/03/17 13:41 Last Admin: 05/10/17 21:02 Dose: 4 mg Oxycodone/Acetaminophen (Percocet 5/325) 2 each PO Q6HR PRN PRN Reason: Pain rated 4-10 Stop: 11/05/17 08:36 Last Admin: 05/11/17 23:17 Dose: 2 each Polyethylene Glycol (Miralax) 17 gm PO DAILY [facility] Stop: 11/07/17 16:01 Last Admin: 05/12/17 08:39 Dose: 17 gm Potassium Chloride (Potassium Chloride) 40 meq PO ONCE ONE Stop: 05/12/17 21:01 Tamsulosin HCl (Flomax) 0.4 mg PO DAILY [facility] PRN Reason: Protocol Stop: 11/05/17 12:31 Last Admin: 05/12/17 08:39 Dose: 0.4 mg - Imaging and Cardiology Echo: report reviewed Other Results: Patient not on tele. - EKG Interpretation EKG results cardiology: personally reviewed Consult Discharge Plan - Plan Instructions: Laparoscopic Cholecystectomy (DC) Additional Instructions: General Surgical Discharge Instructions 1. No pushing, pulling, or lifting greater than 15 lbs for 2-4 weeks (depending upon procedure). 2. You may shower beginning today, but no tub baths, soaking, or swimming for 2 weeks. 3. You may resume driving when you are off narcotics and are safe to react in a car. 4. Take ibuprofen every 8 hours for discomfort. If this does not relieve discomfort, you may take the as needed Percocet. Take narcotics as directed. Do not take more narcotics then directed and do not share your narcotics with any other person. Do not drink alcohol while on narcotics. 5. Take stool softeners (Colace) or a water based laxative (Miralax) while taking narcotics. You may hold for loose stools. 6. Report any fevers greater than 100.5F, increase abdominal discomfort, drainage that looks like pus, increased redness or pain at the surgical site, or any vomiting. 7. Report any pain in the calves, shortness of breath, or rapid heartbeat. 8. Follow-up in the office as directed. 9. If you were prescribed antibiotics, do not stop them without talking to your provider. Referrals: Adriana Barrios CNP [Primary Care Provider] - Mariama Gonzales CNP [Advanced Practice Nurse] - 05/19/17 2:30 pm <Larisa Hernandez - Last Filed: 05/12/17 18:09> Date of Encounter: 05/12/17 - Attending Attestation I examined this patient and my medical decision-making was reviewed with the TRAIN GATEMAN. I agree with the documented findings, disposition and treatment plan as described. Ms. Niocle is a 51 year old female presenting with atypical chest pain and SOB. Post op day 6 from [facility]. Troponins have been negative. No acute ECG findings but nonspecific changes when compared to prior ECG 2015. Recent echo with normal LV EF, no other concerning findings. CXR 'stable' bibasilar airspace disease. Vital signs reviewed - low grade temperature. Labs reviewed - leukocytosis. Suspect SOB may be multifactorial and in part due to fluid overload. Agree with IV diuresis. Management per primary team. Alternatively, given leukocytosis and low grade temperature in setting of bibasilar air space disease on CXR - may need to consider an infectious etiology. Given new but non-acute ECG findings when compared to ECG in 2015, can consider stress testing. Would recommend pursuing this as an outpatient after optimizing patient's current clinical status. Will add low dose aspirin for primary prevention. Chest pain is pleuritic and likely related to a pulmonary process. Will sign off. Please call with questions. Assessment and Plan Discussion w patient/family: The assessment and plan as outlined above was discussed with the patient and/or family members who expressed understanding and agreement. All questions were answered. Thank you for involving us in the care of your patient. Please call with any questions. History of Present Illness History of present illness: Ms. Nicole is a 51 year old female All Systems Review: A 10-system review of systems was performed and is negative for pertinent findings except as documented above in the HPI. Physical Examination Vital Signs, Last 4 Hours Temp Pulse Resp BP Pulse Ox 05/12/17 16:30 17 93 05/12/17 15:12 99.0 F 95 17 139/90 93 Results 05/12/17 07:19 05/12/17 05:58 Lab Results 05/12/17 05/12/17 05/12/17 05:58 07:19 11:49 WBC 25.0 H D Hgb 11.1 L Hct 33.6 L Plt Count 420 H Sodium 135 L Potassium 3.1 L Chloride 97 L Carbon Dioxide 28 BUN 10 Creatinine 0.49 L Glucose 88 Calcium 8.4 L Magnesium 2.2 B-Natriuretic Peptide 181 H
--- NOTE | 2017-05-12 13:41 | Internal Medicine Consult Note ---
Date of Encounter: 05/12/17 Time of Encounter: 13:38 - Assessment and Plan (1) Acute respiratory failure with hypoxia Current Visit: Yes Status: Acute Assessment and plan: Currently requiring 2L O2 nasal cannula. Not on any oxygen at home, no known respiratory disease, denies history of asthma/COPD. Non-smoker. Echocardiogram unremarkable. BNP elevated from 51 to 181 today, and patient currently +4.9 L since admission. She is obese with large neck circumference. Concern she is developing HAP and high risk for sepsis. She has developed cough with sputum and increase in white count and possible airspace disease on imaging. She is afebrile, but meets 2 SIRS criteria based on WBC and tachycardia and must empirically treat for sepsis. Likely multifactorial including: fluid overload, undiagnosed WILLIE, possible developing HAP. - obtain ABG - Continue IV Lasix diuresis - Start broad spectrum antibiotic therapy - Blood cultures, Lactic acid, respiratory viral panel, procalcitonin, urinary antigens. If procalcitonin is negative then discontinue antibiotics. - Sleep study as outpatient is highly recommended. - Wean O2 as tolerated. If patient is stable from a surgical standpoint, we may consider transferring patient to Medicine service. (2) Chest pain Current Visit: Yes Status: Acute Assessment and plan: Managed and evaluated by Cardiology service. Will follow-up recommendation. Qualifiers: Chest pain type: chest pain on breathing Qualified Code(s): R07.1 - Chest pain on breathing; R07.81 - Pleurodynia (3) Fluid overload, unspecified Current Visit: Yes Status: Acute Assessment and plan: Continue diuresis with IV lasix, Monitor I/Os Fluid restrict 2 L per day. Qualifiers: Hypervolemia type: unspecified Qualified Code(s): E87.70 - Fluid overload, unspecified (4) Acute cholecystitis Current Visit: Yes Status: Acute (5) Hypertension Current Visit: Yes Status: Chronic Qualifiers: Hypertension type: unspecified Qualified Code(s): I10 - Essential (primary ) hypertension (6) Hypothyroidism Current Visit: Yes Status: Chronic Qualifiers: Hypothyroidism type: postablative Qualified Code(s): E89.0 - Postprocedural hypothyroidism (7) Obesity (BMI 35.0-39.9 without comorbidity) Current Visit: Yes Status: Chronic (8) DVT prophylaxis Current Visit: Yes Status: Acute Internal Medicine - CN: HPI - Data of Consult Requesting Physician: Ignacio Campos MD - Consult Narrative History of present illness: Ms. Nicole is a 51 year old female Past Med Surg Social Fam HX - Past Medical History Medical history: cancer, hypertension Psychiatric history: no psych history - Past Surgical History Surgical History: cholecystectomy - Social History Smoking Status: Former smoker Smokeless Tobacco Status: No Alcohol use: occasionally Drug use: none - Family History Mother Living Status: Age at : 83 Cause of : sepsis Hx Family Cardiac Disorders: Yes (CHF, HTN) All systems: reviewed and no additional remarkable complaints except as stated Internal Medicine - CN: Meds Liothyronine Sodium [Cytomel] 5 mcg PO DAILY 05/05/17 [History] Omeprazole [PriLOSEC] 20 mg PO DAILY 05/05/17 [History] hydroCHLOROthiazide [Hydrochlorothiazide] 25 mg PO DAILY 05/05/17 [History] Docusate Sodium [Colace] 100 mg PO BID PRN #30 capsule 05/06/17 [Rx] Ibuprofen 800 mg PO Q8H #30 tablet 05/06/17 [Rx] OxyCODONE/APAP 5/325 [Percocet 5/325 MG] 1 each PO Q6HR PRN 7 Days #28 tablet [Rx] 3 Allergy/AdvReac Type Severity Reaction Status Date / Time Penicillins [PCN] AdvReac "FELT Verified 05/05/17 07:21 STRANGE" Internal Medicine - CN: Exam - Constitutional Vitals: Temp Pulse Resp BP Pulse Ox 97.4 F L 95 14 108/67 96 05/12/17 10:40 05/12/17 10:40 05/12/17 10:40 05/12/17 10:40 05/12/17 11:14 General appearance IM: Present: mild distress, A&O X 3, obese, answers questions appropriately - Head Head exam: Present: atraumatic, normocephalic - Eye Eye exam: Present: EOMI, normal appearance - ENT ENT exam: Present: mucous membranes moist - Neck Neck exam general surgery: Present: supple, trachea midline Additional comments: No JVD - Respiratory Respiratory exam: Present: decreased breath sounds, rales. Absent: accessory muscle use, chest wall tenderness - Cardiovascular Cardiovascular exam IM: Present: RRR. Absent: systolic murmur - GI/Abdominal GI/Abdominal exam IM: Present: normal bowel sounds, no peritoneal signs. Absent : rebound, rigid, tenderness - Expanded Exam Female exam: Present: deferred - Extremities Exam Extremities exam IM: Present: pedal edema - Neurological Exam Neurological exam: Present: CN II-XII intact Internal Medicine - CN: Reslt - Labs CBC & Chem 7: 05/12/17 07:19 05/12/17 05:58 Labs: Short CBC 05/12/17 Range/Units 07:19 WBC 25.0 H D (4.3-11.1) K/mcL Hgb 11.1 L (11.5-15.4) g/dL Hct 33.6 L (35.3-44.9) % Plt Count 420 H (140-400) K/mcL Neutrophils # 13.5 H (1.6-8.9) K/mcL BMP 05/12/17 05:58 Sodium 135 L Potassium 3.1 L Chloride 97 L Carbon Dioxide 28 BUN 10 Creatinine 0.49 L Glucose 88 Calcium 8.4 L Urine 05/11/17 Range/Units 18:30 Urine Color Yellow (Yellow) Urine Clarity Cloudy A (Clear) Urine pH 6.0 (5.0-8.0) pH Units Ur Specific Walker 1.020 (1.010-1.025) Urine Protein Negative (Neg-Trace) mg/dL Urine Glucose (UA) Normal (Normal) mg/dL - ABG Interpretation ABG results: PT/INR, D-dimer PT 13.5 Seconds (9.4-12.1) H 05/05/17 06:18 - Impressions Impressions Chest X-Ray 05/12/17 10:18 IMPRESSION: 1. Stable left basilar airspace disease. Continued radiographic follow-up recommended. 2. Pneumoperitoneum as on the previous chest radiograph which is a known finding. D/ / Filemon King MD / Filemon King MD Interpreting Provider: Filemon King MD Consult Discharge Plan - Plan Instructions: Laparoscopic Cholecystectomy (DC) Additional Instructions: General Surgical Discharge Instructions 1. No pushing, pulling, or lifting greater than 15 lbs for 2-4 weeks (depending upon procedure). 2. You may shower beginning today, but no tub baths, soaking, or swimming for 2 weeks. 3. You may resume driving when you are off narcotics and are safe to react in a car. 4. Take ibuprofen every 8 hours for discomfort. If this does not relieve discomfort, you may take the as needed Percocet. Take narcotics as directed. Do not take more narcotics then directed and do not share your narcotics with any other person. Do not drink alcohol while on narcotics. 5. Take stool softeners (Colace) or a water based laxative (Miralax) while taking narcotics. You may hold for loose stools. 6. Report any fevers greater than 100.5F, increase abdominal discomfort, drainage that looks like pus, increased redness or pain at the surgical site, or any vomiting. 7. Report any pain in the calves, shortness of breath, or rapid heartbeat. 8. Follow-up in the office as directed. 9. If you were prescribed antibiotics, do not stop them without talking to your provider. Referrals: Adriana Barrios CNP [Primary Care Provider] - Mariama Gonzales CNP [Advanced Practice Nurse] - 05/19/17 2:30 pm
[2017-05-12 16:42] LABS: ABG Base Excess 6 mEq/L (-2 to 3); ABG HCO3 29 mEq/L (21-27); ABG Oxygen Saturation 96 % (95-98); ABG PCO2 37 mmHg (35-45); ABG PH 7.51 pH Units (7.32-7.45); ABG PO2 72 mmHg (85-104); ABG TCO2 30 mEq/L (20-26)
--- NOTE | 2017-05-12 16:47 | Electrocardiograph Report ---
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
[2017-05-12 17:20] LABS: Adenovirus Not Detected (Not Detect); Bordetella Pertussis Not Detected (Not Detect); Chlamydophila pneumoniae Not Detected (Not Detect); Coronavirus 229E Not Detected (Not Detect); Coronavirus HKU1 Not Detected (Not Detect); Coronavirus NL63 Not Detected (Not Detect); Coronavirus OC43 Not Detected (Not Detect); Human Metapneumovirus Not Detected (Not Detect); Human Rhinovirus/Enterovirus Not Detected (Not Detect); Influenza A Subtype 2009 H1 Not Detected (Not Detect); Influenza A Untypeable Not Detected (Not Detect); Influenza B Not Detected (Not Detect); Mycoplasma pneumoniae Not Detected (Not Detect); Parainfluenza Virus 1 Not Detected (Not Detect); Parainfluenza Virus 2 Not Detected (Not Detect); Parainfluenza Virus 3 Not Detected (Not Detect); Parainfluenza Virus 4 Not Detected (Not Detect); Respiratory Syncytial Virus Not Detected (Not Detect)
[2017-05-12] MEDS: Cefepime HCl 2,000 MG in Water for inj. (sterile) 20 ML 20 ML IVP SCH ×2 (17:45→23:44)
[2017-05-12] MEDS: Azithromycin 500 MG in D5% in Water 250 ML IVPB SCH (17:46)
[2017-05-12] MEDS ORDERED: Furosemide 20 MG/2 ML VIAL IVP SCH (21:00)
[2017-05-12] MEDS: Furosemide 40 MG/4 ML VIAL IVP SCH (21:17)
[2017-05-13] MEDS: Ipratropium/Albuterol Neb 3 ML IH SCH ×4 (03:34→21:46)
[2017-05-13 05:58] LABS: BUN/Creatinine Ratio 19 (6-26); Blood Urea Nitrogen 10 mg/dL (6-20); Calcium 8.6 mg/dL (8.6-10.3); Carbon Dioxide 28 mEq/L (23-29); Chloride 94 mEq/L (98-107); Glucose 90 mg/dL (70-105); Osmolality,Calculated 279 (280-300); Sodium 135 mEq/L (136-145); eGFR For African Americans > 60 (> 60); eGFR For Non-African Americans > 60 (> 60)
[2017-05-13] MEDS: *HR* Heparin 5,000 UNIT/ML VIAL SQ SCH (06:01)
[2017-05-13] MEDS: Cefepime HCl 2,000 MG in Water for inj. (sterile) 20 ML 20 ML IVP SCH ×2 (08:14→23:51)
[2017-05-13] MEDS: hydroCHLOROthiazide 25 MG TABLET PO SCH (08:15)
[2017-05-13] MEDS: Furosemide 40 MG/4 ML VIAL IVP SCH (08:15)
[2017-05-13] MEDS: Levothyroxine Sodium 100 MCG VIAL IVP SCH (08:15)
[2017-05-13] MEDS: Fluconazole 100 MG/50 ML 100 MG/50 ML BAG IVPB SCH (08:24)
[2017-05-13] MEDS ORDERED: Aspirin 81 MG TAB.CHEW PO SCH (09:00)
[2017-05-13 10:31] LABS: Hematocrit 34.2 % (35.3-44.9); Hemoglobin 11.4 g/dL (11.5-15.4); Mean Corpuscular HGB Conc 33.3 g/dL (31.6-35.5); Mean Corpuscular Hemoglobin 25.9 pg (28.0-33.3); Mean Corpuscular Volume 77.6 fL (83.0-100.0); Mean Platelet Volume 9.5 fL (9.4-12.4); Platelet Count 541 K/mcL (140-400); Red Blood Count 4.41 M/mcL (3.82-4.97); Red Cell Distribution Width 16.6 % (11.5-14.5)
[2017-05-13 10:58] LABS: Eosinophils # 1.1 K/mcL (0.0-0.6); Lymphocytes # 2.1 K/mcL (0.6-4.6); Monocytes # 0.5 K/mcL (0.0-1.3)
[2017-05-13 10:59] LABS: Platelet Estimate Increased (Normal); Toxic Granulation Present (Not Present)
[2017-05-13 11:00] LABS: Polychromasia 1+ (Not Present)
--- NOTE | 2017-05-13 11:06 | General Surgery Progress Note ---
<Rebekah Rae - Last Filed: 05/13/17 11:17> Date of Encounter: 05/13/17 Time of Encounter: 11:04 - Assessment and Plan (1) Acute cholecystitis Current Visit: Yes Status: Acute POD #7 s/p lap shania 05/05/2017 -Upper GI series 05/08/2017- no acute abnormality involving the stomach, esophagus or duodenum. No evidence of leak. Persistent subdiaphragmatic free air , as seen on CT. -CT abdomen 05/07/2017-large amount of free intraperitoneal air, greater than expected 2 days postop. Ascities and mild infiltration of mesenteric fat. Findings worrisome for perforation. Largest quantity of focal gas is seen within the LUQ. Small quantity of fluid in gallbladder fossa not unexpected 2 days postop. No evidence of pulmonary embolic disease. Small Left pleural effusion. Bilateral lower lobe atelectatsis. -Echo 05/09/2017- LVEF 60-65%, no segmental dysfunction, no significant valvular dysfunction. -CXR 05/12/2017- stable left basilar airspace disease. Continued radiographic FU recommended. Pneumoperitoneum as on previous CXR. -Patient resting comfortably this morning, states she feels improved from yesterday. Her pain is a 1 out of 10. She is eating and drinking normally. She does still report mild shortness of breath. -Persistent leukocytosis, (white blood cell count 26.7 up from 25 yesterday up from 16 on May 10). -Medicine following for dyspnea and elevated WBC. -We will order a CT of the abdomen and pelvis with oral, no IV contrast. If no evidence of bowel leakage, we will transfer the patient to the care of the hospitalist and sign off. Subjective Patient reports: no new complaints, feels better, pain is less, tolerating a regular diet, voiding w/o difficulty, flatus, bowel movement, shortness of breath, afebrile Objective Vital Signs - Last 8 Hours Temp Pulse Resp BP Pulse Ox 05/13/17 10:48 97.4 F L 93 18 114/80 96 05/13/17 07:35 97.9 F 96 18 95/57 93 05/13/17 04:08 98.2 F 99 15 117/71 93 05/13/17 03:37 16 93 Intake and Output 05/12/17 05/13/1718 23:59 07:59 15:59 Intake Total 300 / 300 0 / 0 Output Total 2250 / 2250 750 / 750 Balance -1950 / -1950 -750 / -750 Intake: IV Fluids 240 / 240 Maxipime 2,000 MG In Water for 40 / 40 inj. (sterile) 20 ML @ 300 mls/ hr IVP Q8HR SUSIE Rx#:[id number] Potassium Chloride 10 mEq/100mL 200 / 200 10 meq In 100 ml @ 100 mls/hr IVPB Q1H SUSIE Rx#:[id number] Oral 60 / 60 0 / 0 Output: Urine 600 / 600 750 / 750 Urine/Stool Mix 1650 / 1650 Other: Stool Size Small Stool Consistency soft Stool Color Brown Weight 140.8 kg Patient Weight 05/13/17 23:59 Weight 140.8 kg - General physical appearance well developed, well nourished, no distress - Eyes PERRL, normal ocular movement - ENT no congestion - Respiratory normal expansion, other crackles: bilateral (mild), wheezing: bilateral (mild) - Cardiovascular Cardiovascular exam: Present: RRR, no murmurs/rubs/gallops - Abdomen Abdomen: Present: bowel sounds present, soft, non tender. Absent: guarding, rebound, rigid - Incision Incision: Present: clean and dry, intact - Neurologic CN 2-12 grossly intact, normal coordination, normal sensation - Psychiatric oriented to time, oriented to person, oriented to place, speech is normal, memory intact - Labs 05/13/17 10:00 05/13/17 04:55 Diabetes panel 05/13/17 Range/Units 04:55 Sodium 135 L (136-145) mEq/L Potassium 4.0 D (3.5-5.1) mEq/L Chloride 94 L (98-107) mEq/L Carbon Dioxide 28 (23-29) mEq/L BUN 10 (6-20) mg/dL Creatinine 0.54 L (0.60-1.20) mg/dL Glucose 90 (70-105) mg/dL Calcium 8.6 (8.6-10.3) mg/dL Calcium panel 05/13/17 Range/Units 04:55 Calcium 8.6 (8.6-10.3) mg/dL Pituitary panel 05/13/17 Range/Units 04:55 Sodium 135 L (136-145) mEq/L Potassium 4.0 D (3.5-5.1) mEq/L Chloride 94 L (98-107) mEq/L Carbon Dioxide 28 (23-29) mEq/L BUN 10 (6-20) mg/dL Creatinine 0.54 L (0.60-1.20) mg/dL Glucose 90 (70-105) mg/dL Calcium 8.6 (8.6-10.3) mg/dL Adrenal panel 05/13/17 Range/Units 04:55 Sodium 135 L (136-145) mEq/L Potassium 4.0 D (3.5-5.1) mEq/L Chloride 94 L (98-107) mEq/L Carbon Dioxide 28 (23-29) mEq/L BUN 10 (6-20) mg/dL Creatinine 0.54 L (0.60-1.20) mg/dL Glucose 90 (70-105) mg/dL Calcium 8.6 (8.6-10.3) mg/dL - VTE Reasons for not Prescribing Prophylaxis: Treatment not Indicated - Low risk for VTE Documentation of Mechanical Device: Intermittent pneumatic compression device Consult Discharge Plan - Plan Instructions: Laparoscopic Cholecystectomy (DC) Additional Instructions: General Surgical Discharge Instructions 1. No pushing, pulling, or lifting greater than 15 lbs for 2-4 weeks (depending upon procedure). 2. You may shower beginning today, but no tub baths, soaking, or swimming for 2 weeks. 3. You may resume driving when you are off narcotics and are safe to react in a car. 4. Take ibuprofen every 8 hours for discomfort. If this does not relieve discomfort, you may take the as needed Percocet. Take narcotics as directed. Do not take more narcotics then directed and do not share your narcotics with any other person. Do not drink alcohol while on narcotics. 5. Take stool softeners (Colace) or a water based laxative (Miralax) while taking narcotics. You may hold for loose stools. 6. Report any fevers greater than 100.5F, increase abdominal discomfort, drainage that looks like pus, increased redness or pain at the surgical site, or any vomiting. 7. Report any pain in the calves, shortness of breath, or rapid heartbeat. 8. Follow-up in the office as directed. 9. If you were prescribed antibiotics, do not stop them without talking to your provider. Referrals: Adriana Barrios CNP [Primary Care Provider] - Mariama Gonzales CNP [Advanced Practice Nurse] - 05/19/17 2:30 pm <Ignacio Campos - Last Filed: 05/13/17 14:37> Date of Encounter: 05/13/17 Objective Vital Signs - Last 8 Hours Temp Pulse Resp BP Pulse Ox 05/13/17 10:48 97.4 F L 93 18 114/80 96 05/13/17 07:35 97.9 F 96 18 95/57 93 Intake and Output 05/12/17 05/13/17 05/13/17 23:59 07:59 15:59 Intake Total 300 / 300 0 / 0 Output Total 2250 / 2250 750 / 750 500 / 500 Balance -1950 / -1950 -750 / -750 -500 / -500 Intake: IV Fluids 240 / 240 Maxipime 2,000 MG In Water for 40 / 40 inj. (sterile) 20 ML @ 300 mls/ hr IVP Q8HR [facility] Rx#:[id number] Potassium Chloride 10 mEq/100mL 200 / 200 10 meq In 100 ml @ 100 mls/hr IVPB Q1H [facility] Rx#:[id number] Oral 60 / 60 0 / 0 Output: Urine 600 / 600 750 / 750 500 / 500 Urine/Stool Mix 1650 / 1650 Other: Stool Size Small Stool Consistency soft Stool Color Brown Weight 140.8 kg Patient Weight 05/13/17 23:59 Weight 140.8 kg - Labs 05/13/17 10:00 05/13/17 04:55 Diabetes panel 05/13/17 Range/Units 04:55 Sodium 135 L (136-145) mEq/L Potassium 4.0 D (3.5-5.1) mEq/L Chloride 94 L (98-107) mEq/L Carbon Dioxide 28 (23-29) mEq/L BUN 10 (6-20) mg/dL Creatinine 0.54 L (0.60-1.20) mg/dL Glucose 90 (70-105) mg/dL Calcium 8.6 (8.6-10.3) mg/dL Calcium panel 05/13/17 Range/Units 04:55 Calcium 8.6 (8.6-10.3) mg/dL Pituitary panel 05/13/17 Range/Units 04:55 Sodium 135 L (136-145) mEq/L Potassium 4.0 D (3.5-5.1) mEq/L Chloride 94 L (98-107) mEq/L Carbon Dioxide 28 (23-29) mEq/L BUN 10 (6-20) mg/dL Creatinine 0.54 L (0.60-1.20) mg/dL Glucose 90 (70-105) mg/dL Calcium 8.6 (8.6-10.3) mg/dL Adrenal panel 05/13/17 Range/Units 04:55 Sodium 135 L (136-145) mEq/L Potassium 4.0 D (3.5-5.1) mEq/L Chloride 94 L (98-107) mEq/L Carbon Dioxide 28 (23-29) mEq/L BUN 10 (6-20) mg/dL Creatinine 0.54 L (0.60-1.20) mg/dL Glucose 90 (70-105) mg/dL Calcium 8.6 (8.6-10.3) mg/dL - Attending Attestation I examined this patient and my medical decision-making was reviewed with the Resident Physician. I agree with the documented findings, disposition and treatment plan as described except to the extent set forth below. The patient is seen and evaluated on morning rounds with the resident and the clinical nurse practitioner. She rated her pain at 1 out of 10, however, she had pain with motion. Out of an abundance of caution, I ordered a CAT scan with oral contrast. I was contacted that the CAT scan demonstrated an active small bowel perforation. Certainly, this would explain her clinical course. I have recommended exploratory laparotomy and repair of small bowel injury. The point of injury is unclear. I shared this information with the patient and she wishes to proceed with exploratory laparotomy Ignacio Campos MD FACS
[2017-05-13] MEDS ORDERED: Vancomycin 2,000 MG in D5% in Water 250 ML IVPB SCH (13:00)
[2017-05-13] MEDS ORDERED: *HR* Midazolam HCl 2 MG/2 ML VIAL ONE ×2 (14:00→14:01)
[2017-05-13] MEDS ORDERED: cefOXitin 1,000 MG, Sodium Chloride IRRigation 1,000 ML IR ONE ×2 (14:00→19:45)
[2017-05-13] MEDS ORDERED: *HR* Propofol 200 MG/20 ML VIAL IVP ONE (14:00)
[2017-05-13] MEDS ORDERED: *HR* FentaNYL (PF) 100 MCG/2 ML VIAL ONE ×2 (14:00→16:52)
[2017-05-13] MEDS ORDERED: Ketamine *HR* 500 MG/10 ML MDV ONE (14:01)
[2017-05-13] MEDS ORDERED: Lidocaine -MPF 2% 2 ML VIAL ONE ×2 (14:03→16:40)
[2017-05-13] MEDS ORDERED: *HR* Rocuronium Bromide 50 MG/5 ML VIAL ONE (14:05)
[2017-05-13] MEDS ORDERED: *HR* Succinylcholine 200 MG/10 ML VIAL IVP ONE (14:05)
[2017-05-13] MEDS ORDERED: Lidocaine -MPF 4% 5 ML AMPUL ONE (14:06)
[2017-05-13] MEDS ORDERED: Metoclopramide 10 MG/2 ML VIAL ONE (14:43)
[2017-05-13] MEDS ORDERED: Famotidine 20 MG/2 ML VIAL ONE (14:43)
--- NOTE | 2017-05-13 14:46 | Anesthesia Evaluation PreOp ---
Date of Encounter: 05/13/17 Time of Encounter: 14:43 - Past History Planned Operation: Expl Lap POD#6 s/p Lap [place] Cardiac History: HTN (Hctz) Pulmonary History: Denies Any Significant HX, WILLIE Dx (not yet Dx - but probable) CHEMI[employer] History: Denies Any Significant HX Other Medical History: Thyroid (Hx of Thyroid Ca s/p ablation maintained on Liothyronidne, Synthroid), GERD (maintained on Omeprazole) Anesthesia History: No Prior Anesthetic Complications, Past Anesthesia (Lap Rosalva 05/06/2017, Hyster, shoulder Surgery, [facility], Throidectomy 02/2010) Alcohol Use: occasionally Drug use: none Medications and Allergies Liothyronine Sodium [Cytomel] 5 mcg PO DAILY 05/05/17 [History] Omeprazole [PriLOSEC] 20 mg PO DAILY 05/05/17 [History] hydroCHLOROthiazide [Hydrochlorothiazide] 25 mg PO DAILY 05/05/17 [History] Docusate Sodium [Colace] 100 mg PO BID PRN #30 capsule 05/06/17 [Rx] Ibuprofen 800 mg PO Q8H #30 tablet 05/06/17 [Rx] OxyCODONE/APAP 5/325 [Percocet 5/325 MG] 1 each PO Q6HR PRN 7 Days #28 tablet [Rx] 3 Allergy/AdvReac Type Severity Reaction Status Date / Time Penicillins [PCN] AdvReac "FELT Verified 05/05/17 07:21 STRANGE" - Meds/Allergy Pre-op Review Medications Reviewed: Yes Allergies Reviewed: Yes Beta Blockers on Current Med List: No Anesthesia Results - Labs 05/13/17 10:00 05/13/17 04:55 Laboratory Results WBC 26.7 K/mcL (4.3-11.1) H 05/13/17 10:00 RBC 4.41 M/mcL (3.82-4.97) 05/13/17 10:00 Hgb 11.4 g/dL (11.5-15.4) L 05/13/17 10:00 Hct 34.2 % (35.3-44.9) L 05/13/17 10:00 MCV 77.6 fL (83.0-100.0) L 05/13/17 10:00 MCH 25.9 pg (28.0-33.3) L 05/13/17 10:00 MCHC 33.3 g/dL (31.6-35.5) 05/13/17 10:00 RDW 16.6 % (11.5-14.5) H 05/13/17 10:00 Plt Count 541 K/mcL (140-400) H 05/13/17 10:00 MPV 9.5 fL (9.4-12.4) 05/13/17 10:00 Immature Gran % 3.8 % (0-4) 05/09/17 03:30 Seg Neutrophils % 86.0 % 05/13/17 10:00 Band Neutrophils % 2.0 % (0-4) 05/12/17 07:19 Lymphocytes % 8.0 % 05/13/17 10:00 Monocytes % 2.0 % 05/13/17 10:00 Eosinophils % 4.0 % 05/13/17 10:00 Basophils % 0.5 % 05/09/17 03:30 Neutrophils # 23.0 K/mcL (1.6-8.9) H 05/13/17 10:00 Lymphocytes # 2.1 K/mcL (0.6-4.6) 05/13/17 10:00 Monocytes # 0.5 K/mcL (0.0-1.3) 05/13/17 10:00 Eosinophils # 1.1 K/mcL (0.0-0.6) H 05/13/17 10:00 Basophils # 0.1 K/mcL (0.0-0.2) 05/09/17 03:30 Reactive Lymphocytes Present (Not Present) A 05/12/17 07:19 Toxic Granulation Present (Not Present) A 05/13/17 10:00 Platelet Estimate Increased (Normal) H 05/13/17 10:00 Immature Plt Fraction 5.9 % (1.1-6.1) 05/09/17 03:30 Polychromasia 1+ (Not Present) A 05/13/17 10:00 Anisocytosis 1+ (Not Present) A 05/12/17 07:19 Microcytosis Present (Not Present) A 05/08/17 05:23 Macrocytosis Present (Not Present) A 05/12/17 07:19 PT 13.5 Seconds (9.4-12.1) H 05/05/17 06:18 INR 1.2 05/05/17 06:18 APTT 29.4 Seconds (26.0-36.0) 05/05/17 06:18 ABG pH 7.51 pH Units (7.32-7.45) H 05/12/17 16:40 ABG pCO2 37 mmHg (35-45) 05/12/17 16:40 ABG pO2 72 mmHg (85-104) L 05/12/17 16:40 ABG HCO3 29 mEq/L (21-27) H 05/12/17 16:40 ABG Total CO2 30 mEq/L (20-26) H 05/12/17 16:40 ABG O2 Saturation 96 % (95-98) 05/12/17 16:40 ABG Base Excess 6 mEq/L (-2 to 3) H 05/12/17 16:40 Sodium 135 mEq/L (136-145) L 05/13/17 04:55 Potassium 4.0 mEq/L (3.5-5.1) D 05/13/17 04:55 Chloride 94 mEq/L (98-107) L 05/13/17 04:55 Carbon Dioxide 28 mEq/L (23-29) 05/13/17 04:55 BUN 10 mg/dL (6-20) 05/13/17 04:55 Creatinine 0.54 mg/dL (0.60-1.20) L 05/13/17 04:55 Est GFR ( Amer) > 60 (> 60) 05/13/17 04:55 Est GFR (Non-Af Amer) > 60 (> 60) 05/13/17 04:55 BUN/Creatinine Ratio 19 (6-26) 05/13/17 04:55 Glucose 90 mg/dL (70-105) 05/13/17 04:55 POC Glucose 79 (58-89) 05/12/17 11:45 Est Mean Plasma Glucose 100 mg/dl 05/09/17 03:30 Hemoglobin A1c 5.1 % (-5.6) 05/09/17 03:30 Calculated Osmolality 279 (280-300) L 05/13/17 04:55 Lactic Acid 1.0 mmol/L (0.5-2.2) 05/12/17 14:59 Calcium 8.6 mg/dL (8.6-10.3) 05/13/17 04:55 Phosphorus 3.7 mg/dL (2.7-4.5) 05/12/17 05:58 Magnesium 2.2 mg/dL (1.6-2.6) 05/12/17 05:58 Iron < 10 mcg/dL (50-170) L 05/09/17 03:30 % Saturation TNP 05/09/17 03:30 Transferrin 154 mg/dL (203-362) L 05/09/17 03:30 Total Bilirubin 0.7 mg/dL (0.3-1.0) 05/09/17 03:30 Direct Bilirubin 0.2 mg/dL (0.0-0.2) 05/09/17 03:30 Indirect Bilirubin 0.5 mg/dL (0.0-1.2) 05/09/17 03:30 AST 11 Units/L (13-39) L 05/09/17 03:30 ALT 17 Units/L (7-52) 05/09/17 03:30 Alkaline Phosphatase 124 Units/L (34-104) H 05/09/17 03:30 Troponin I < 0.03 ng/mL (< 0.04) 05/09/17 15:00 B-Natriuretic Peptide 181 pg/mL (Less than 100) H 05/12/17 11:49 Serum Total Protein 5.7 g/dL (6.4-8.9) L 05/09/17 03:30 Albumin 2.8 g/dL (3.5-5.7) L 05/09/17 03:30 Globulin 2.9 g/dL (2.4-3.5) 05/09/17 03:30 Albumin/Globulin Ratio 1.0 (1.1-2.2) L 05/09/17 03:30 Carcinoembryonic Ag 1.2 ng/mL (Less than 5.0) 05/12/17 05:58 Urine Color Yellow (Yellow) 05/11/17 18:30 Urine Clarity Cloudy (Clear) A 05/11/17 18:30 Urine pH 6.0 pH Units (5.0-8.0) 05/11/17 18:30 Ur Specific [place] 1.020 (1.010-1.025) 05/11/17 18:30 Urine Protein Negative mg/dL (Neg-Trace) 05/11/17 18:30 Urine Glucose (UA) Normal mg/dL (Normal) 05/11/17 18:30 Urine Ketones 80 mg/dL (Negative) H 05/11/1730 Urine Blood Negative (Negative) 05/11/1730 Urine Nitrite Negative (Negative) 05/11/17 18:30 Urine Bilirubin Negative (Negative) 05/11/17 Urine Urobilinogen Normal mg/dL (Normal) 05/11/17: Ur Leukocyte Esterase Negative (Negative) 05/11/1730 Urine Microscopic RBC 5-15 per hpf (0-3) H 05/11/17 Urine Microscopic WBC 0-3 per hpf (0-3) 05/11/17 Ur Squamous Epith Cells Many per lpf (None-Few) H 05/11/1730 Urine Bacteria None Seen per hpf (None-Few) 05/11/17 Hyaline Casts None Seen per lpf (None-Few) 05/11/17 18: Ur Culture Indicated? NO (NO) 05/11/17 18:30 Chlamy pneumoniae PCR Not Detected (Not Detect) 05/12/17 15:05 Adenovirus (PCR) Not Detected (Not Detect) 05/12/17 15:05 B. pertussis DNA (PCR) Not Detected (Not Detect) 05/12/17 15:05 B.parapertussis DNA PCR Not Detected (Not Detect) 05/12/17 15:05 Coronavirus OC43 (PCR) Not Detected (Not Detect) 05/12/17 15:05 Coronavirus HKU1 (PCR) Not Detected (Not Detect) 05/12/17 15:05 Coronavirus 229E (PCR) Not Detected (Not Detect) 05/12/17 15:05 Coronavirus NL63 (PCR) Not Detected (Not Detect) 05/12/17 15:05 Human Metapneumovir PCR Not Detected (Not Detect) 05/12/17 15:05 Influenza A (H1) PCR Not Detected (Not Detect) 05/12/17 15:05 Influ A (H1N1/09) PCR Not Detected (Not Detect) 05/12/17 15:05 Influenza A (H3) PCR Not Detected (Not Detect) 05/12/17 15:05 Influenza A Untype (PCR) Not Detected (Not Detect) 05/12/17 15:05 Influenza Type B (PCR) Not Detected (Not Detect) 05/12/17 15:05 M.pneumoniae DNA (PCR) Not Detected (Not Detect) 05/12/17 15:05 Parainfluenza 1 (PCR) Not Detected (Not Detect) 05/12/17 15:05 Parainfluenza 2 (PCR) Not Detected (Not Detect) 05/12/17 15:05 Parainfluenza 3 (PCR) Not Detected (Not Detect) 05/12/17 15:05 Parainfluenza 4 (PCR) Not Detected (Not Detect) 05/12/17 15:05 RSV (PCR) Not Detected (Not Detect) 05/12/17 15:05 Entero/Rhino (PCR) Not Detected (Not Detect) 05/12/17 15:05 Specimen Rejected Labelling 05/13/17 03:20 Blood Type O POSITIVE 05/05/17 05:15 Antibody Screen NEGATIVE 05/05/17 05:15 Impressions Gallbladder Ultrasound 05/04/17 14:03 IMPRESSION: Cholelithiasis without sonographic evidence of acute cholecystitis. D/ / 05/04/2017 16:53:26 Zeke Salgado MD / [email or web address] Interpreting Provider: Zeke Salgado MD Bile Acid Absorption NM 05/05/17 10:00 IMPRESSION: Nonvisualization of the gallbladder after morphine administration consistent with acute cholecystitis. D/ / Tremaine Juarez MD / Tremaine Juarez MD Interpreting Provider: Tremaine Juarez MD Cholangiogram,Operative 05/05/17 17:25 IMPRESSION: Normal intraoperative cholangiogram. D/ / Zeke Verdugo MD / Zeke Verdugo MD Interpreting Provider: Zeke Verdugo MD Chest CTA 05/07/17 13:14 IMPRESSION: 1. Large amount of free intraperitoneal air, greater than expected 2 days postop. Small quantity of ascites as well as mild infiltration of the mesenteric fat. The findings are worrisome for perforation. Although nonspecific, the largest quantity of focal gas is seen within the left upper quadrant raising the possibility of gastric or adjacent colonic perforation. 2. Small quantity of fluid in the gallbladder fossa, not unexpected 2 days postop. 3. No evidence of pulmonary embolic disease. 4. Small left pleural effusion. Bilateral lower lobe atelectasis, left greater than right. The findings were called to Mariama Gonzales on 05/07/2017 at 3:00 p.m. D/ /07/2017 15:14:59 Henrry Fox MD / [facility] Interpreting Provider: Henrry Fox MD Abdomen CT 05/07/17 13:17 IMPRESSION: 1. Large amount of free intraperitoneal air, greater than expected 2 days postop. Small quantity of ascites as well as mild infiltration of the mesenteric fat. The findings are worrisome for perforation. Although nonspecific, the largest quantity of focal gas is seen within the left upper quadrant raising the possibility of gastric or adjacent colonic perforation. 2. Small quantity of fluid in the gallbladder fossa, not unexpected 2 days postop. 3. No evidence of pulmonary embolic disease. 4. Small left pleural effusion. Bilateral lower lobe atelectasis, left greater than right. The findings were called to Mariama Gonzales on 05/07/2017 at 3:00 p.m. D/ /07/2017 15:14:59 Henrry Fox MD / [facility] Interpreting Provider: Henrry Fox MD Upper GI Series 05/08/17 13:17 IMPRESSION: 1. No acute abnormality involving the stomach, esophagus or duodenum. No evidence of leak. 2. Persistent subdiaphragmatic free air, as previously seen on recent CT. D/ / 05/08/2017 16:17:52 Henrry De Luna MD / [email or web address] Interpreting Provider: Henrry De Luna MD Echocardiogram 05/09/17 09:00 Impressions: Technically sub-optimal due to body habitus. LVEF 60-65%. No segmental dysfunction. No significant valvular dysfunction. Left Ventricular Wall Motion: Rest Echo Findings All wall segments showed normal motion. Findings: Right Ventricle * Not well visualized Left Atrium * Not well visualized Aorta * Normally sized aortic root. ECG Findings * Normal sinus rhythm. Study Quality * Technically sub-optimal due to body habitus. Aortic Valve * Aortic valve not well visualized. * No aortic regurgitation. * No aortic stenosis. Mitral Valve * Mitral valve not well visualized. * No mitral stenosis. * No mitral regurgitation. Tricuspid Valve * No tricuspid stenosis. * Trace tricuspid regurgitation. * Tricuspid valve not well visualized. * Unable to estimate RVSP due to lack of TR jet. Pulmonic Valve * Pulmonic valve is not well visualized. * No pulmonic stenosis. * No pulmonic regurgitation. IVC * The IVC is not well evaluated. Interatrial Septum * Interatrial septum not well evaluated. Right Atrium * Right atrium is not well visualized. Pericardium * There is a trivial-small pericardial effusion present. Left Ventricle * LVEF 60-65%. * Mild left ventricular diastolic dysfunction. * No segmental dysfunction. Chest X-Ray 05/12/17 10:18 IMPRESSION: 1. Stable left basilar airspace disease. Continued radiographic follow-up recommended. 2. Pneumoperitoneum as on the previous chest radiograph which is a known finding. D/ / Filemon King MD / Filemon King MD Interpreting Provider: Filemon King MD Abdomen/Pelvis CT 05/13/17 11:45 IMPRESSION: 1. Findings compatible with a perforation of the small bowel in the anterior abdomen, seen best on axial image 116. Air, fluid and oral contrast arising from the perforated bowel communicates with mixed air-fluid collections within the anterior abdomen, measuring up to 13 x 24 cm on the left. 2. Large pneumoperitoneum, overall similar to the previous CT exam. 3. Small perisplenic and pelvic free fluid. 4. Status post cholecystectomy. Decreasing now small postoperative fluid collection within the gallbladder fossa, likely a resolving hematoma, seroma or contained biloma. 5. Small bilateral pleural effusions with bibasilar atelectasis. A superimposed left lower lobe pneumonia cannot be excluded. Results of this examination were communicated to the surgical nurse practitioner, Ladi Gonzales, at 1:32 p.m. on 05/13/2017. She is to relay the above findings to Dr. Campos. D/ / 05/13/2017 13:43:50 Zeke Verdugo MD / [facility] Interpreting Provider: Zeke Verdugo MD Anesthesia Exam Vital Signs Temp Pulse Resp BP Pulse Ox 05/13/17 10:48 97.4 F L 93 18 114/80 96 05/13/17 07:35 97.9 F 96 18 95/57 93 05/13/17 04:08 98.2 F 99 15 117/71 93 05/13/17 03:37 16 93 05/12/17 21:47 16 96 05/12/17 19:41 98.9 F 96 15 121/76 93 05/12/17 16:30 17 93 05/12/17 15:12 99.0 F 95 17 139/90 93 Intake and Output 05/12/17 05/13/17 05/13/17 23:59 07:59 15:59 Intake Total 300 / 300 0 / 0 Output Total 2250 / 2250 750 / 750 500 / 500 Balance -1950 / -1950 -750 / -750 -500 / -500 Intake: IV Fluids 240 / 240 Maxipime 2,000 MG In Water for 40 / 40 inj. (sterile) 20 ML @ 300 mls/ hr IVP Q8HR SUSIE Rx#:[id number] Potassium Chloride 10 mEq/100mL 200 / 200 10 meq In 100 ml @ 100 mls/hr IVPB Q1H SUSIE Rx#:[id number] Oral 60 / 60 0 / 0 Output: Urine 600 / 600 750 / 750 500 / 500 Urine/Stool Mix 1650 / 1650 Other: Stool Size Small Stool Consistency soft Stool Color Brown Weight 140.8 kg Patient Weight 05/13/17 23:59 Weight 140.8 kg Height: 5'11" Weight: 310# NPO (# of Hours): 1300 - HEENT Pupil (Motor): Pupils equal, EOMI Mallampati: II Teeth: Normal Oral Opening: Greater than 3 - [employer] LOC: Oriented [employer] Motor: Normal RUE, Normal LUE, Normal RLE, Normal LLE, Normal Face [employer] Sensory: Normal: RUE, LUE, RLE, LLE, Face - Cardiac Rhythm: Regular Murmur: None - Pulmonary Breath Sounds: bilateral Clear Respiratory Effort: Symmetrical Anesthesia Assess/Plan ASA Score: 3 ( [place]/BMI = 43) Modified [place] Scale for Level of Consciousness: Cooperative, oriented, and tranquil Anesthetic Plan: General Monitoring Plan: Standard Monitors Recovery Plan: PACU Anes Supervising Prov Stmt: Pt seen/evaluated, R&B discussed, questions answered and consent obtained. Venkata George MD
[2017-05-13] MEDS ORDERED: Acetaminophen IV 1,000 MG/100 ML INFUS..BTL ONE (14:55)
[2017-05-13] MEDS ORDERED: CefOXitin 2,000 MG VIAL ONE (14:57)
[2017-05-13] MEDS ORDERED: Esmolol 100 MG/10 ML VIAL IVP ONE (15:51)
[2017-05-13] MEDS ORDERED: Ondansetron 4 MG/2 ML VIAL ONE (15:53)
[2017-05-13] MEDS ORDERED: Dexamethasone 4 MG/ML VIAL ONE (15:53)
[2017-05-13] MEDS ORDERED: *HR* Magnesium Sulfate 1 GM/2 ML VIAL ONE (15:54)
[2017-05-13] MEDS ORDERED: Vancomycin 2,000 MG in D5% in Water 500 ML IVPB SCH (16:00)
[2017-05-13] MEDS ORDERED: *HR* Labetalol 20 MG/4 ML SYRINGE IVP PRN ×2 (16:18→19:45)
[2017-05-13] MEDS ORDERED: *HR* Promethazine 25 MG/ML VIAL IVP PRN ×2 (16:18→19:45)
[2017-05-13] MEDS ORDERED: *HR* OxyCODONE Immed Rel 5 MG TABLET PO PRN (16:18)
[2017-05-13] MEDS ORDERED: Ketorolac 30 MG/ML VIAL ONE (16:21)
[2017-05-13] MEDS ORDERED: Neostigmine Methylsulfate 3 MG/3 ML SYRINGE ONE ×2 (16:31→16:56)
--- NOTE | 2017-05-13 16:53 | Operative Note ---
Date of procedure: 05/13/17 Pre-op diagnosis: Small bowel perforation Post-op diagnosis: same Procedure: #1 resection of 10 cm small bowel with primary anastomosis #2 drainage of multiple interloop abscesses #3 lysis of adhesions for 30 minutes Anesthesia: IVA Surgeon: Ignacio Campos Was there an accounts payable assistant present: Yes Seismic Observer: Josie Au Estimated blood loss (cc): 50 Specimen: Small bowel segment Condition: stable Disposition: PACU Procedure in Detail: After informed consent patient was taken me droppingsb we placed supine position given adequate general endotracheal anesthesia. The abdomen was prepped and draped in sterile fashion utilizing ChloraPrep standard draping techniques. Timeout was taken and the patient was identified. Made a vertical midline incision around the umbilicus and one to the upper abdomen. The abdomen was entered. There was a collection of thin bilious stained fluid in several areas. One next to the anterior abdominal wall. One the upper abdomen. There were no areas of food particles area I carefully dissected below the umbilicus. She had adhesions from her previous hysterectomy. These adhesions had formed just below the umbilicus where the infraumbilical incision was. It appeared as though the small bowel was injured in this area. There is an open area spilling ilial contents. There were small bowel adhesions in the pelvis. I elevated the abdominal wall perform twice adhesions. Careful lysis of adhesions was performed throughout the entire abdomen for 30 minutes. During this I opened all areas of interloop fluid collections and abscesses. The small bowel was isolated. I divided proximal and distal to the injury with EVELINA and performed a antimesenteric border EVELINA anastomosis and closed the resulting enterotomy with a TA 50. The anastomosis was circumferentially reinforced with interrupted 2-0 silk. The mesentery was closed with interrupted 2-0 silk. The anastomosis was about 30 cm proximal to the ileocecal valve. I made a careful inspection of the abdomen. Nasogastric tube was placed into the stomach and the position was checked manually. I irrigated with copious amounts of antibiotic containing solution in all 4 quadrants. The midline was closed with looped 0 PDS. The skin was closed with interrupted Vicryl. The skin was closed with skin clips. She tolerated the procedure well.
[2017-05-13] MEDS: MORPHINE SUL Oral CONC 10 MG/0.5 ML ORAL.SYG SL PRN ×4 (17:19→18:42)
[2017-05-13] MEDS ORDERED: Pregabalin 50 MG CAPSULE PO ONE (17:50)
[2017-05-13] MEDS ORDERED: *HR* HYDROmorphone 2 MG TABLET PO ONE (18:28)
--- NOTE | 2017-05-13 19:04 | Anesthesia Evaluation Post Op ---
Date of Encounter: 05/13/17 Time of Encounter: 19:03 - Vital Signs Vital Signs: Vital Signs/O2 Sat/Glucose, Most Current Temp Pulse Resp BP Pulse Ox 05/13/17 18:55 92 20 124/85 96 05/13/17 18:45 90 20 124/84 96 05/13/17 18:35 97.7 F 90 20 123/80 95 05/13/17 18:25 87 20 120/80 94 05/13/17 18:15 89 20 116/72 93 05/13/17 18:05 99.2 F 88 20 113/72 94 05/13/17 17:55 88 20 102/67 92 05/13/17 17:45 87 20 106/67 94 05/13/17 17:35 97.2 F L 90 20 104/68 93 05/13/17 17:25 90 20 99/63 95 05/13/17 17:15 93 18 112/73 95 05/13/17 17:05 97.2 F L 99 18 118/67 93 - Lungs Lungs: Clear Ascult./Percussion - Airway Airway: Non-obstructed - Cardiovascular Regular Rate - Mental Status Mental Status: Alert & Oriented, Answers Appropriately - Pain Pain Scale: 4 Pain Scale used: Numeric (1 - 10) - Nausea Vomiting Nausea Vomiting: Not Present - Hydration Hydration: Ice chips, Navarro catheter - Discharge PostOp Status: Transfer Patient to floor Anes Supervising Prov Stmt: Pt seen/evaluated, VSS And pt has met criteria for discharge to floor. - MD Doris
[2017-05-13] MEDS ORDERED: *HR* OxyCODONE/APAP 5/325 TABLET PO PRN (19:45)
[2017-05-13] MEDS ORDERED: D5% in Water 1,000 ML IVC PRN (19:45)
[2017-05-13] MEDS ORDERED: Naloxone 0.4 MG/ML INJ IVP PRN (19:45)
[2017-05-13] MEDS ORDERED: *HR* Metoprolol 5 MG/5 ML VIAL IVP PRN (19:45)
[2017-05-13] MEDS ORDERED: Ondansetron 4 MG/2 ML VIAL IVP PRN (19:45)
[2017-05-13] MEDS ORDERED: *HR* Dextrose 50 % in Water (Syg) 50 ML SYRINGE IVP PRN (19:45)
[2017-05-13] MEDS ORDERED: Dextrose Gel 15 GM/37.5 ML TUBE PO PRN ×2 (19:45)
--- NOTE | 2017-05-13 21:56 | Internal Med Progress Note ---
Date of Encounter: 05/13/17 Time of Encounter: 13:30 - Assessment and plan (1) Small bowel perforation Current Visit: Yes Status: Acute Assessment and plan: Managed per Surgery. Patient likely going to OR today. (2) Acute respiratory failure with hypoxia Current Visit: Yes Status: Acute Assessment and plan: Secondary to fluid overload. There is questionable pneumonia as well based on chest x-ray, however elevated white count may be attributed to small bowel perforation. She should be emperically treated for both. Diuresis may need to be held; patient is going for immediate surgery today. Her volume status may change. She appears non-toxic on my exam. Will monitor post op. (3) Chest pain Current Visit: Yes Status: Acute Qualifiers: Chest pain type: chest pain on breathing Qualified Code(s): R07.1 - Chest pain on breathing; R07.81 - Pleurodynia (4) Fluid overload, unspecified Current Visit: Yes Status: Acute Assessment and plan: Diuresis may need to be held as patient will go to OR today. Qualifiers: Hypervolemia type: unspecified Qualified Code(s): E87.70 - Fluid overload, unspecified (5) Acute cholecystitis Current Visit: Yes Status: Acute Assessment and plan: Status post cholecystectomy (6) Hypertension Current Visit: Yes Status: Chronic Assessment and plan: Blood pressure medications should be held for SBP <100. Qualifiers: Hypertension type: unspecified Qualified Code(s): I10 - Essential (primary ) hypertension (7) Hypothyroidism Current Visit: Yes Status: Chronic Qualifiers: Hypothyroidism type: postablative Qualified Code(s): E89.0 - Postprocedural hypothyroidism (8) Obesity (BMI 35.0-39.9 without comorbidity) Current Visit: Yes Status: Chronic (9) DVT prophylaxis Current Visit: Yes Status: Acute - Subjective Interval history: Patient states she is feeling better from a breathing standpoint. She denies fevers/chills, n/v. I was notified of critical results of CT abdomen/pelvis ordered today. Results were called in to me instead of ordering physician. Surgery team was then notified of critical results. - Constitutional Vitals: Temp Pulse Resp BP Pulse Ox 97.9 F 92 16 131/87 93 05/13/17 21:25 05/13/17 21:25 05/13/17 21:46 05/13/17 21:25 05/13/17 21:46 General appearance: Present: A&O X 3, obese, answers questions appropriately Exam: No longer labored breathing compared to yesterday Internal Medicine: Result - Labs CBC & Chem 7: 05/13/17 10:00 05/13/17 04:55 Labs: Short CBC 05/13/17 Range/Units 10:00 WBC 26.7 H (4.3-11.1) K/mcL Hgb 11.4 L (11.5-15.4) g/dL Hct 34.2 L (35.3-44.9) % Plt Count 541 H (140-400) K/mcL Neutrophils # 23.0 H (1.6-8.9) K/mcL BMP 05/13/17 04:55 Sodium 135 L Potassium 4.0 D Chloride 94 L Carbon Dioxide 28 BUN 10 Creatinine 0.54 L Glucose 90 Calcium 8.6 - ABG Interpretation ABG results: ABG ABG pH 7.51 pH Units (7.32-7.45) H 05/12/17 16:40 ABG pCO2 37 mmHg (35-45) 05/12/17 16:40 ABG pO2 72 mmHg (85-104) L 05/12/17 16:40 ABG O2 Saturation 96 % (95-98) 05/12/17 16:40 PT/INR, D-dimer PT 13.5 Seconds (9.4-12.1) H 05/05/17 06:18 - Impressions Impressions Abdomen/Pelvis CT 05/13/17 11:45 IMPRESSION: 1. Findings compatible with a perforation of the small bowel in the anterior abdomen, seen best on axial image 116. Air, fluid and oral contrast arising from the perforated bowel communicates with mixed air-fluid collections within the anterior abdomen, measuring up to 13 x 24 cm on the left. 2. Large pneumoperitoneum, overall similar to the previous CT exam. 3. Small perisplenic and pelvic free fluid. 4. Status post cholecystectomy. Decreasing now small postoperative fluid collection within the gallbladder fossa, likely a resolving hematoma, seroma or contained biloma. 5. Small bilateral pleural effusions with bibasilar atelectasis. A superimposed left lower lobe pneumonia cannot be excluded. Results of this examination were communicated to the surgical nurse practitioner, Ladi Gonzales, at 1:32 p.m. on 05/13/2017. The case was also discussed with Dr. Campos. D/ / 05/13/2017 13:43:50 Zeke Verdugo MD / cuco Interpreting Provider: Zeke Verdugo MD - VTE Reasons for not Prescribing Prophylaxis: Treatment not Indicated - Low risk for VTE Documentation of Mechanical Device: Intermittent pneumatic compression device Consult Discharge Plan - Plan Instructions: Laparoscopic Cholecystectomy (DC) Additional Instructions: General Surgical Discharge Instructions 1. No pushing, pulling, or lifting greater than 15 lbs for 2-4 weeks (depending upon procedure). 2. You may shower beginning today, but no tub baths, soaking, or swimming for 2 weeks. 3. You may resume driving when you are off narcotics and are safe to react in a car. 4. Take ibuprofen every 8 hours for discomfort. If this does not relieve discomfort, you may take the as needed Percocet. Take narcotics as directed. Do not take more narcotics then directed and do not share your narcotics with any other person. Do not drink alcohol while on narcotics. 5. Take stool softeners (Colace) or a water based laxative (Miralax) while taking narcotics. You may hold for loose stools. 6. Report any fevers greater than 100.5F, increase abdominal discomfort, drainage that looks like pus, increased redness or pain at the surgical site, or any vomiting. 7. Report any pain in the calves, shortness of breath, or rapid heartbeat. 8. Follow-up in the office as directed. 9. If you were prescribed antibiotics, do not stop them without talking to your provider. Referrals: Adriana Barrios CNP [Primary Care Provider] - Mariama Gonzales CNP [Advanced Practice Nurse] - 05/19/17 2:30 pm
[2017-05-14] MEDS ORDERED: Vancomycin 2,000 MG in D5% in Water 500 ML IVPB SCH (04:00)
[2017-05-14] MEDS: OXYCODONE Oral CONC 10 MG/0.5 ML ORAL.SYG SL PRN ×4 (04:16→22:04)
[2017-05-14] MEDS: Ipratropium/Albuterol Neb 3 ML IH SCH ×4 (04:29→21:09)
[2017-05-14] MEDS: Levothyroxine Sodium 100 MCG VIAL IVP SCH (06:44)
[2017-05-14] MEDS: *HR* Heparin 5,000 UNIT/ML VIAL SQ SCH ×2 (06:45→18:35)
[2017-05-14] MEDS ORDERED: Furosemide 40 MG/4 ML VIAL IVP SCH (08:00)
[2017-05-14 08:46] LABS: Hematocrit 33.9 % (35.3-44.9); Hemoglobin 11.4 g/dL (11.5-15.4); Mean Corpuscular HGB Conc 33.6 g/dL (31.6-35.5); Mean Corpuscular Volume 77.4 fL (83.0-100.0); Mean Platelet Volume 9.4 fL (9.4-12.4); Platelet Count 567 K/mcL (140-400); Red Blood Count 4.38 M/mcL (3.82-4.97); Red Cell Distribution Width 16.7 % (11.5-14.5)
[2017-05-14 08:57] LABS: BUN/Creatinine Ratio 26 (6-26); Blood Urea Nitrogen 13 mg/dL (6-20); Calcium 8.3 mg/dL (8.6-10.3); Carbon Dioxide 32 mEq/L (23-29); Chloride 89 mEq/L (98-107); Glucose 137 mg/dL (70-105); Osmolality,Calculated 276 (280-300); Potassium 3.4 mEq/L (3.5-5.1); Sodium 132 mEq/L (136-145); eGFR For African Americans > 60 (> 60); eGFR For Non-African Americans > 60 (> 60)
[2017-05-14] MEDS ORDERED: hydroCHLOROthiazide 25 MG TABLET PO SCH (09:00)
[2017-05-14] MEDS ORDERED: Aspirin 81 MG TAB.CHEW PO SCH (09:00)
[2017-05-14 09:25] LABS: Lymphocytes # 2.1 K/mcL (0.6-4.6); Monocytes # 0.7 K/mcL (0.0-1.3); Neutrophils # 32.7 K/mcL (1.6-8.9); Platelet Estimate Increased (Normal); Reactive Lymphocytes Present (Not Present); Smudge Cells Present (Not Present)
--- NOTE | 2017-05-14 09:41 | General Surgery Progress Note ---
<Rebekah Rae - Last Filed: 05/14/17 10:44> Date of Encounter: 05/14/17 Time of Encounter: 09:39 - Assessment and Plan (1) Acute cholecystitis Current Visit: Yes Status: Acute POD # 8 s/p lap shania 05/05/2017, POD #1 s/p #1 resection of 10 cm of small bowel with primary anastomoses #2 drainage of multiple interloop abscesses #3 lysis of adhesion performed on 05/13/2017 for a pre-op diagnosis of a small bowel perforation. -Upper GI series 05/08/2017- no acute abnormality involving the stomach, esophagus or duodenum. No evidence of leak. Persistent subdiaphragmatic free air , as seen on CT. -CT abdomen 05/07/2017-large amount of free intraperitoneal air, greater than expected 2 days postop. Ascities and mild infiltration of mesenteric fat. Findings worrisome for perforation. Largest quantity of focal gas is seen within the LUQ. Small quantity of fluid in gallbladder fossa not unexpected 2 days postop. No evidence of pulmonary embolic disease. Small Left pleural effusion. Bilateral lower lobe atelectatsis. -Echo 05/09/2017- LVEF 60-65%, no segmental dysfunction, no significant valvular dysfunction. -CXR 05/12/2017- stable left basilar airspace disease. Continued radiographic FU recommended. Pneumoperitoneum as on previous CXR. -CT of the abdomen and pelvis on 05/13/2017 show findings compatible with perforation of the small bowel in the anterior abdomen. Air, fluid, and oral contrast arising from the perforated bowel communicates with mixed air-fluid collections within the anterior abdomen. Large pneumoperitoneum. Small perisplenic and pelvic free fluid. 05/14/2017: Patient resting comfortably this morning. States her postoperative pain is controlled. Patient with NG tube in place. -White blood cell count 35.5 today up from 26.7 yesterday. This can be expected 1 day postoperatively. Will continue with current antibiotic regimen. -Medicine following for dyspnea and leukocytosis. -Will hold oral ASA and HCTZ while patient NPO day after bowel resection. -Will order albumin/prealbumin to establish nutritional state for potential TPN. -We will continue to follow the patient closely. (2) Postoperative urinary retention Current Visit: Yes Status: Acute Patient with 510 mls post void residual. Urinary output of 720 mls after straight catheterization overnight. -We will start a Navarro catheter if continued minimal urinary output with post void residuals greater than 300 mls. Subjective Patient reports: still having pain, no flatus, no bowel movement, afebrile ( Patient having difficulty urinating. She had 510 mils post void residuals overnight. After straight catheterization, she had an output of 720 mls.) Objective Vital Signs - Last 8 Hours Temp Pulse Resp BP Pulse Ox 05/14/17 07:45 98.1 F 100 15 108/68 94 05/14/17 04:30 15 95 05/14/17 03:59 98.7 F 94 16 125/75 94 Intake and Output 05/13/17 05/14/17 05/14/17 23:59 07:59 15:59 Intake Total 0 / 0 0 / 0 Output Total 50 / 50 825 / 825 Balance -50 / -50 -825 / -825 Intake: Oral 0 / 0 0 / 0 Output: Urine 0 / 0 100 / 100 Estimated Blood Loss 50 / 50 Straight Cath 725 / 725 Other: # Voids 0 Blood Glucose* 102 145 - General physical appearance well developed, well nourished, moderate distress, obese - Eyes PERRL, normal ocular movement - Respiratory normal expansion, normal respiratory effort, other (Diminished air movement at the bilateral bases with mild crackles.) - Cardiovascular Cardiovascular exam: Present: RRR, no murmurs/rubs/gallops - Abdomen Abdomen: Present: soft, tender Hernia: none - Incision Incision: Present: clean and dry (Vertical midline incision intact. Dressings are dry. No surrounding erythema.), intact - Neurologic CN 2-12 grossly intact, normal coordination, normal sensation - Psychiatric oriented to time, oriented to person, oriented to place, speech is normal, memory intact - Labs 05/14/17 08:25 05/14/17 08:25 Diabetes panel 05/14/17 Range/Units 08:25 Sodium 132 L (136-145) mEq/L Potassium 3.4 L (3.5-5.1) mEq/L Chloride 89 L (98-107) mEq/L Carbon Dioxide 32 H (23-29) mEq/L BUN 13 (6-20) mg/dL Creatinine 0.50 L (0.60-1.20) mg/dL Glucose 137 H (70-105) mg/dL Calcium 8.3 L (8.6-10.3) mg/dL Calcium panel 05/14/17 Range/Units 08:25 Calcium 8.3 L (8.6-10.3) mg/dL Pituitary panel 05/14/17 Range/Units 08:25 Sodium 132 L (136-145) mEq/L Potassium 3.4 L (3.5-5.1) mEq/L Chloride 89 L (98-107) mEq/L Carbon Dioxide 32 H (23-29) mEq/L BUN 13 (6-20) mg/dL Creatinine 0.50 L (0.60-1.20) mg/dL Glucose 137 H (70-105) mg/dL Calcium 8.3 L (8.6-10.3) mg/dL Adrenal panel 05/14/17 Range/Units 08:25 Sodium 132 L (136-145) mEq/L Potassium 3.4 L (3.5-5.1) mEq/L Chloride 89 L (98-107) mEq/L Carbon Dioxide 32 H (23-29) mEq/L BUN 13 (6-20) mg/dL Creatinine 0.50 L (0.60-1.20) mg/dL Glucose 137 H (70-105) mg/dL Calcium 8.3 L (8.6-10.3) mg/dL - VTE Reasons for not Prescribing Prophylaxis: Treatment not Indicated - Low risk for VTE Documentation of Mechanical Device: Intermittent pneumatic compression device Consult Discharge Plan - Plan Instructions: Laparoscopic Cholecystectomy (DC) Additional Instructions: General Surgical Discharge Instructions 1. No pushing, pulling, or lifting greater than 15 lbs for 2-4 weeks (depending upon procedure). 2. You may shower beginning today, but no tub baths, soaking, or swimming for 2 weeks. 3. You may resume driving when you are off narcotics and are safe to react in a car. 4. Take ibuprofen every 8 hours for discomfort. If this does not relieve discomfort, you may take the as needed Percocet. Take narcotics as directed. Do not take more narcotics then directed and do not share your narcotics with any other person. Do not drink alcohol while on narcotics. 5. Take stool softeners (Colace) or a water based laxative (Miralax) while taking narcotics. You may hold for loose stools. 6. Report any fevers greater than 100.5F, increase abdominal discomfort, drainage that looks like pus, increased redness or pain at the surgical site, or any vomiting. 7. Report any pain in the calves, shortness of breath, or rapid heartbeat. 8. Follow-up in the office as directed. 9. If you were prescribed antibiotics, do not stop them without talking to your provider. Referrals: Adriana Barrios CNP [Primary Care Provider] - Mariama Gonzales CNP [Advanced Practice Nurse] - 05/19/17 2:30 pm <Ignacio Campos - Last Filed: 05/19/17 08:40> Date of Encounter: 05/14/17 Objective Vital Signs - Last 8 Hours Temp Pulse Resp BP Pulse Ox 05/19/17 04:13 99.2 F 104 20 146/74 94 Intake and Output 05/18/17 05/19/17 05/19/17 23:59 07:59 15:59 Intake Total 2310 / 2310 370 / 370 Output Total 450 / 450 325 / 325 Balance 1860 / 1860 45 / 45 Intake: IV Fluids 2310 / 2310 350 / 350 Clinimix E 5%-15% SOLUTION 2, 2210 / 2210 000 ML Travasol 10% 200 ML @ 91 .6 mls/hr IVC .Q24H SUSIE with M. v.i. Adult 10 ml Rx#:[id number] Intralipid 20% 250 ML @ 21 mls/ 250 / 250 hr IVPB DAILY@1700 SUSIE Rx#: [id number] Flagyl Premix 500 MG/100 ML 500 100 / 100 100 / 100 mg In 100 ml @ 100 mls/hr IVPB Q8HR SUSIE Rx#:[id number] Oral 0 / 0 20 / 20 Output: Urine 450 / 450 325 / 325 Other: Stool Size Small Stool Consistency loose Stool Color Brown # Bowel Movement Diapers 2 Blood Glucose* 101 120 - Labs 05/19/17 04:25 05/19/17 04:25 Diabetes panel 05/19/17 Range/Units 04:25 Sodium 138 (136-145) mEq/L Potassium 3.6 (3.5-5.1) mEq/L Chloride 105 (98-107) mEq/L Carbon Dioxide 26 (23-29) mEq/L BUN 19 (6-20) mg/dL Creatinine 0.45 L (0.60-1.20) mg/dL Glucose 101 (70-105) mg/dL Calcium 8.4 L (8.6-10.3) mg/dL Calcium panel 05/19/17 Range/Units 04:25 Calcium 8.4 L (8.6-10.3) mg/dL Pituitary panel 05/19/17 Range/Units 04:25 Sodium 138 (136-145) mEq/L Potassium 3.6 (3.5-5.1) mEq/L Chloride 105 (98-107) mEq/L Carbon Dioxide 26 (23-29) mEq/L BUN 19 (6-20) mg/dL Creatinine 0.45 L (0.60-1.20) mg/dL Glucose 101 (70-105) mg/dL Calcium 8.4 L (8.6-10.3) mg/dL Adrenal panel 05/19/17 Range/Units 04:25 Sodium 138 (136-145) mEq/L Potassium 3.6 (3.5-5.1) mEq/L Chloride 105 (98-107) mEq/L Carbon Dioxide 26 (23-29) mEq/L BUN 19 (6-20) mg/dL Creatinine 0.45 L (0.60-1.20) mg/dL Glucose 101 (70-105) mg/dL Calcium 8.4 L (8.6-10.3) mg/dL - Attending Attestation I examined this patient and my medical decision-making was reviewed with the Resident Physician. I agree with the documented findings, disposition and treatment plan as described except to the extent set forth below. The patient is seen and evaluated on morning rounds with the resident. She has nasogastric tube in place and we will await onset of bowel function. She sustained tangential small bowel injury at an anterior abdominal wall adhesion associated with her hysterectomy. This area was addressed with resection and reanastomosis. Ignacio Campos MD FACS
[2017-05-14] MEDS: Cefepime HCl 2,000 MG in Water for inj. (sterile) 20 ML 20 ML IVP SCH ×2 (09:48→17:48)
[2017-05-14] MEDS: Fluconazole 100 MG/50 ML 100 MG/50 ML BAG IVPB SCH (09:49)
[2017-05-14] MEDS ORDERED: Potassium Chloride 40 MEQ, Lidocaine 1% 2 ML in D5% in Water 500 ML IVPB ONE ×2 (11:38→11:39)
[2017-05-14] MEDS ORDERED: D10% in Water 500 ML IVC PRN (15:44)
[2017-05-14] MEDS ORDERED: Clinimix E 5%-15% SOLUTION 2,000 ML with MVI, adult with vitamin K 10 ML IVC SCH (17:00)
[2017-05-14] MEDS ORDERED: Lidocaine -MPF 1% 5 ML AMPUL INFILT ONE (17:18)
[2017-05-14] MEDS: Azithromycin 500 MG in D5% in Water 250 ML IVPB SCH (17:47)
[2017-05-14] MEDS: 0.9 % Sodium Chloride 1,000 ML IVC SCH (17:47)
[2017-05-14] MEDS: Insulin LISPRO 300 UNITS/3 ML VIAL SQ SCH (18:38)
--- NOTE | 2017-05-14 22:16 | Internal Med Progress Note ---
Date of Encounter: 05/14/17 Time of Encounter: 13:15 - Assessment and plan (1) Small bowel perforation Current Visit: Yes Status: Acute Assessment and plan: Managed per Surgery. Patient likely going to OR today. (2) Acute respiratory failure with hypoxia Current Visit: Yes Status: Acute Assessment and plan: Secondary to fluid overload. There is questionable pneumonia as well based on chest x-ray, however elevated white count may be attributed to small bowel perforation. She should be emperically treated for both. Diuresis may need to be held; patient is going for immediate surgery today. Her volume status may change. She appears non-toxic on my exam. Will monitor post op. (3) Chest pain Current Visit: Yes Status: Acute Qualifiers: Chest pain type: chest pain on breathing Qualified Code(s): R07.1 - Chest pain on breathing; R07.81 - Pleurodynia (4) Fluid overload, unspecified Current Visit: Yes Status: Acute Assessment and plan: Stable post-operatively Qualifiers: Hypervolemia type: unspecified Qualified Code(s): E87.70 - Fluid overload, unspecified (5) Acute cholecystitis Current Visit: Yes Status: Acute Assessment and plan: Status post cholecystectomy (6) Hypertension Current Visit: Yes Status: Chronic Assessment and plan: Blood pressure medications should be held for SBP <100. Qualifiers: Hypertension type: unspecified Qualified Code(s): I10 - Essential (primary ) hypertension (7) Hypothyroidism Current Visit: Yes Status: Chronic Qualifiers: Hypothyroidism type: postablative Qualified Code(s): E89.0 - Postprocedural hypothyroidism (8) Obesity (BMI 35.0-39.9 without comorbidity) Current Visit: Yes Status: Chronic (9) DVT prophylaxis Current Visit: Yes Status: Acute - Subjective Interval history: No complaints, no acute events. - Constitutional Vitals: Temp Pulse Resp BP Pulse Ox 98.0 F 88 16 105/65 96 05/14/17 19:20 05/14/17 19:20 05/14/17 21:12 05/14/17 19:20 05/14/17 21:12 General appearance: Present: A&O X 3, obese, answers questions appropriately Exam: CVS: RRR Lungs: decreased breath sounds, fine rales at bases Ext: bilateral pitting pedal edema Internal Medicine: Result - Labs CBC & Chem 7: 05/15/17 04:30 05/15/17 04:30 Labs: Short CBC 05/14/17 Range/Units 08:25 WBC 35.5 H* (4.3-11.1) K/mcL Hgb 11.4 L (11.5-15.4) g/dL Hct 33.9 L (35.3-44.9) % Plt Count 567 H (140-400) K/mcL Neutrophils # 32.7 H (1.6-8.9) K/mcL BMP 05/14/17 08:25 Sodium 132 L Potassium 3.4 L Chloride 89 L Carbon Dioxide 32 H BUN 13 Creatinine 0.50 L Glucose 137 H Calcium 8.3 L Liver Function 05/14/17 Range/Units 10:51 Albumin 3.2 L (3.5-5.7) g/dL - ABG Interpretation ABG results: ABG ABG pH 7.51 pH Units (7.32-7.45) H 05/12/17 16:40 ABG pCO2 37 mmHg (35-45) 05/12/17 16:40 ABG pO2 72 mmHg (85-104) L 05/12/17 16:40 ABG O2 Saturation 96 % (95-98) 05/12/17 16:40 PT/INR, D-dimer PT 13.5 Seconds (9.4-12.1) H 05/05/17 06:18 - VTE Reasons for not Prescribing Prophylaxis: Treatment not Indicated - Low risk for VTE Documentation of Mechanical Device: Intermittent pneumatic compression device Consult Discharge Plan - Plan Instructions: Laparoscopic Cholecystectomy (DC) Additional Instructions: General Surgical Discharge Instructions 1. No pushing, pulling, or lifting greater than 15 lbs for 2-4 weeks (depending upon procedure). 2. You may shower beginning today, but no tub baths, soaking, or swimming for 2 weeks. 3. You may resume driving when you are off narcotics and are safe to react in a car. 4. Take ibuprofen every 8 hours for discomfort. If this does not relieve discomfort, you may take the as needed Percocet. Take narcotics as directed. Do not take more narcotics then directed and do not share your narcotics with any other person. Do not drink alcohol while on narcotics. 5. Take stool softeners (Colace) or a water based laxative (Miralax) while taking narcotics. You may hold for loose stools. 6. Report any fevers greater than 100.5F, increase abdominal discomfort, drainage that looks like pus, increased redness or pain at the surgical site, or any vomiting. 7. Report any pain in the calves, shortness of breath, or rapid heartbeat. 8. Follow-up in the office as directed. 9. If you were prescribed antibiotics, do not stop them without talking to your provider. Referrals: Adriana Barrios CNP [Primary Care Provider] - Mariama Gonzales CNP [Advanced Practice Nurse] - 05/19/17 2:30 pm
[2017-05-15] MEDS: Cefepime HCl 2,000 MG in Water for inj. (sterile) 20 ML 20 ML IVP SCH ×2 (01:27→08:39)
[2017-05-15] MEDS: Ipratropium/Albuterol Neb 3 ML IH SCH ×4 (03:45→22:14)
[2017-05-15] MEDS: OXYCODONE Oral CONC 10 MG/0.5 ML ORAL.SYG SL PRN (04:25)
[2017-05-15 04:48] LABS: Hematocrit 32.3 % (35.3-44.9); Hemoglobin 10.3 g/dL (11.5-15.4); Mean Corpuscular HGB Conc 31.9 g/dL (31.6-35.5); Mean Corpuscular Hemoglobin 25.8 pg (28.0-33.3); Mean Corpuscular Volume 80.8 fL (83.0-100.0); Mean Platelet Volume 9.2 fL (9.4-12.4); Platelet Count 510 K/mcL (140-400); Red Cell Distribution Width 16.9 % (11.5-14.5)
[2017-05-15 05:48] LABS: Eosinophils # 0.5 K/mcL (0.0-0.6); Lymphocytes # 3.7 K/mcL (0.6-4.6); Monocytes # 0.9 K/mcL (0.0-1.3); Neutrophils # 18.2 K/mcL (1.6-8.9); Reactive Lymphocytes Present (Not Present)
[2017-05-15 05:49] LABS: Anisocytosis 1+ (Not Present)
[2017-05-15] MEDS: Levothyroxine Sodium 100 MCG VIAL IVP SCH (06:20)
[2017-05-15] MEDS: *HR* Heparin 5,000 UNIT/ML VIAL SQ SCH ×2 (06:21→17:27)
[2017-05-15 06:29] LABS: BUN/Creatinine Ratio 27 (6-26); Blood Urea Nitrogen 13 mg/dL (6-20); Calcium 8.2 mg/dL (8.6-10.3); Carbon Dioxide 34 mEq/L (23-29); Chloride 94 mEq/L (98-107); Glucose 134 mg/dL (70-105); Osmolality,Calculated 284 (280-300); Potassium 3.2 mEq/L (3.5-5.1); Sodium 136 mEq/L (136-145); eGFR For African Americans > 60 (> 60); eGFR For Non-African Americans > 60 (> 60)
[2017-05-15 07:21] LABS: Magnesium 2.6 mg/dL (1.6-2.6); Phosphorous 2.4 mg/dL (2.7-4.5)
[2017-05-15] MEDS: 0.9 % Sodium Chloride 1,000 ML IVC SCH ×2 (08:10→08:40)
[2017-05-15] MEDS: Insulin LISPRO 300 UNITS/3 ML VIAL SQ SCH ×4 (08:11→21:14)
[2017-05-15] MEDS ORDERED: OXYCODONE Oral CONC 10 MG/0.5 ML ORAL.SYG SL PRN (08:57)
[2017-05-15] MEDS: Fluconazole 100 MG/50 ML 100 MG/50 ML BAG IVPB SCH (09:05)
[2017-05-15 09:58] LABS: Mycoplasma pneumoniae IgG 0.81 U/L (<=0.09)
--- NOTE | 2017-05-15 10:45 | General Surgery Progress Note ---
<HarinderAlma Jesus Manuel - Last Filed: 05/15/17 10:56> Date of Encounter: 05/15/17 Time of Encounter: 10:00 - Assessment and Plan (1) Small bowel perforation Current Visit: Yes Status: Acute POD # 9 s/p lap shania 05/05/2017, pathology notes acute cholecystitis and cholelithiasis POD #2 s/p #1 resection of 10 cm of small bowel with primary anastomoses #2 drainage of multiple interloop abscesses #3 lysis of adhesion performed on 05/13 for a pre-op diagnosis of a small bowel perforation. Her surgical dressing remained in place , and was removed. Her incisions are clean, dry, and intact. She does not have bowel sounds. She states she has not been out of bed. She states her abdomen incision discomfort was not well controlled. She reports she has been using her incentive spirometry. Plan: NPO except one half small cup of ice chips every 8 hours for pleasure continue supportive care and discomfort management while awaiting return about function TPN and total fluid status management per hospitalist Navarro catheter management per hospitalist IV antibiotics continue G.I. and DVT prophylaxis out of bed to chair at least 3 times daily. Ambulate with assistance 3 times daily. May clamp NG tube for up to 30 minutes for ambulation. (2) Acute cholecystitis Current Visit: Yes Status: Acute POD # 9 s/p lap shania 05/05/2017, pathology notes acute cholecystitis and cholelithiasis POD #2 s/p #1 resection of 10 cm of small bowel with primary anastomoses #2 drainage of multiple interloop abscesses #3 lysis of adhesion performed on 05/13 for a pre-op diagnosis of a small bowel perforation. Her surgical dressing remained in place , and was removed. Her incisions are clean, dry, and intact. She does not have bowel sounds. She states she has not been out of bed. She states her abdomen incision discomfort was not well controlled. She reports she has been using her incentive spirometry. Plan: NPO except one half small cup of ice chips every 8 hours for pleasure continue supportive care and discomfort management while awaiting return about function TPN and total fluid status management per hospitalist Navarro catheter management per hospitalist IV antibiotics continue G.I. and DVT prophylaxis out of bed to chair at least 3 times daily. Ambulate with assistance 3 times daily. May clamp NG tube for up to 30 minutes for ambulation. Interval imaging history: -Upper GI series 05/08/2017- no acute abnormality involving the stomach, esophagus or duodenum. No evidence of leak. Persistent subdiaphragmatic free air , as seen on CT. -CT abdomen 05/07/2017-large amount of free intraperitoneal air, greater than expected 2 days postop. Ascities and mild infiltration of mesenteric fat. Findings worrisome for perforation. Largest quantity of focal gas is seen within the LUQ. Small quantity of fluid in gallbladder fossa not unexpected 2 days postop. No evidence of pulmonary embolic disease. Small Left pleural effusion. Bilateral lower lobe atelectatsis. -Echo 05/09/2017- LVEF 60-65%, no segmental dysfunction, no significant valvular dysfunction. -CXR 05/12/2017- stable left basilar airspace disease. Continued radiographic FU recommended. Pneumoperitoneum as on previous CXR. -CT of the abdomen and pelvis on 05/13/2017 show findings compatible with perforation of the small bowel in the anterior abdomen. Air, fluid, and oral contrast arising from the perforated bowel communicates with mixed air-fluid collections within the anterior abdomen. Large pneumoperitoneum. Small perisplenic and pelvic free fluid. (3) Shortness of breath Current Visit: Yes Status: Acute Plan: Managment per hospitalist. Reviewed with Dr. Espinal. Hospitalist management of SOB, PNA, total fluid management. Management and recommendations is greatly appreciated. (4) Acute urinary retention Current Visit: Yes Status: Acute Flomax when able to resume PO intake. Total fluid status per hospitalist (5) Obesity (BMI 35.0-39.9 without comorbidity) Current Visit: Yes Status: Chronic (6) Hypothyroidism Current Visit: Yes Status: Chronic Qualifiers: Hypothyroidism type: postablative Qualified Code(s): E89.0 - Postprocedural hypothyroidism (7) Hypokalemia Current Visit: Yes Status: Acute Management per hospital Subjective Patient reports: no new complaints, feels better, still having pain, pain is less, voiding w/o difficulty (Per Navarro catheter), no flatus, no bowel movement Objective Vital Signs - Last 8 Hours Temp Pulse Resp BP Pulse Ox 05/15/17 07:28 99.6 F 76 14 98/60 94 05/15/17 03:56 98.0 F 95 15 94/54 92 02/15/18 03:47 18 92 Intake and Output 05/14/17 05/15/17 05/15/17 23:59 07:59 15:59 Intake Total 250 / 250 1590 / 1590 Output Total 0 / 0 1000 / 1000 Balance -750 / -750 1590 / 1590 Intake: IV Fluids 250 / 250 1590 / 1590 0.9 % Sodium Chloride 1,000 ML 1000 / 1000 @ 125 mls/hr IVC .Q8H [facility] Rx#: [id number] Maxipime 2,000 MG In Water for 40 / 40 inj. (sterile) 20 ML @ 300 mls/ hr IVP Q8HR [facility] Rx#:[id number] Zithromax 500 mg In Dextrose 5% 250 / 250 250 ML @ 252 mls/hr IVPB Q24H [facility] Rx#:[id number] Intralipid 20% 250 ML @ 21 mls/ 250 / 250 hr IVPB DAILY@1700 [facility] Rx#: [id number] Diflucan 100 MG/50 ML 100 mg In 50 / 50 50 ml @ 50 mls/hr IVPB DAILY [facility] Rx#:[id number] Vancocin 1,500 MG In 0.9 % 250 / 250 Sodium Chloride 250 ML @ 166.67 mls/hr IVPB Q12H [facility] Rx#: [id number] Oral 0 / 0 0 / 0 0 / 0 Output: Urine 0 / 0 0 / 0 Catheter 1000 / 1000 Other: Meal Breakfast NPO Weight 140.5 kg Blood Glucose* 112 Patient Weight 05/15/17 23:59 Weight 140.5 kg - General physical appearance no distress, moderate pain - Eyes normal ocular movement - ENT normal nares (NG noted), atraumatic, normocephalic, Other (O2 per mask noted) - Neck Neck exam: trachea midline, no venous distension - Respiratory other (Decreased anteriorly) - Cardiovascular Cardiovascular exam: Present: RRR, distant heart sounds, no murmurs/rubs/gallops - Abdomen Abdomen: Present: soft, tender (Expected postoperative). Absent: bowel sounds present (ABSENT) Hernia: none - Incision Incision: Present: clean and dry, intact - Integumentary other (Expected ecchymosis to the abdomen noted) - Neurologic normal coordination, normal sensation - Musculoskeletal normal posture - Psychiatric oriented to time, oriented to person, oriented to place, speech is normal, memory intact - Labs 05/15/17 04:30 05/15/17 04:30 Diabetes panel 05/14/17 05/15/17 05/15/17 Range/Units 10:51 04:30 04:30 Sodium 136 (136-145) mEq/L Potassium 3.2 L (3.5-5.1) mEq/L Chloride 94 L (98-107) mEq/L Carbon Dioxide 34 H (23-29) mEq/L BUN 13 (6-20) mg/dL Creatinine 0.49 L (0.60-1.20) mg/dL Glucose 134 H (70-105) mg/dL Calcium 8.2 L (8.6-10.3) mg/dL Albumin 3.2 L (3.5-5.7) g/dL Triglycerides 192 H (< 150) mg/dL Calcium panel 05/14/17 05/15/17 05/15/17 Range/Units 10:51 04:30 04:30 Calcium 8.2 L (8.6-10.3) mg/dL Phosphorus 2.4 L (2.7-4.5) mg/dL Albumin 3.2 L (3.5-5.7) g/dL Pituitary panel 05/15/17 Range/Units 04:30 Sodium 136 (136-145) mEq/L Potassium 3.2 L (3.5-5.1) mEq/L Chloride 94 L (98-107) mEq/L Carbon Dioxide 34 H (23-29) mEq/L BUN 13 (6-20) mg/dL Creatinine 0.49 L (0.60-1.20) mg/dL Glucose 134 H (70-105) mg/dL Calcium 8.2 L (8.6-10.3) mg/dL Adrenal panel 05/14/17 05/15/17 Range/Units 10:51 04:30 Sodium 136 (136-145) mEq/L Potassium 3.2 L (3.5-5.1) mEq/L Chloride 94 L (98-107) mEq/L Carbon Dioxide 34 H (23-29) mEq/L BUN 13 (6-20) mg/dL Creatinine 0.49 L (0.60-1.20) mg/dL Glucose 134 H (70-105) mg/dL Calcium 8.2 L (8.6-10.3) mg/dL Albumin 3.2 L (3.5-5.7) g/dL - VTE Reasons for not Prescribing Prophylaxis: Treatment not Indicated - Low risk for VTE Documentation of Mechanical Device: Intermittent pneumatic compression device Consult Discharge Plan - Plan Instructions: Laparoscopic Cholecystectomy (DC) Additional Instructions: General Surgical Discharge Instructions 1. No pushing, pulling, or lifting greater than 15 lbs for 2-4 weeks (depending upon procedure). 2. You may shower beginning today, but no tub baths, soaking, or swimming for 2 weeks. 3. You may resume driving when you are off narcotics and are safe to react in a car. 4. Take ibuprofen every 8 hours for discomfort. If this does not relieve discomfort, you may take the as needed Percocet. Take narcotics as directed. Do not take more narcotics then directed and do not share your narcotics with any other person. Do not drink alcohol while on narcotics. 5. Take stool softeners (Colace) or a water based laxative (Miralax) while taking narcotics. You may hold for loose stools. 6. Report any fevers greater than 100.5F, increase abdominal discomfort, drainage that looks like pus, increased redness or pain at the surgical site, or any vomiting. 7. Report any pain in the calves, shortness of breath, or rapid heartbeat. 8. Follow-up in the office as directed. 9. If you were prescribed antibiotics, do not stop them without talking to your provider. Referrals: Adriana Barrios CNP [Primary Care Provider] - Mariama Gonzales CNP [Advanced Practice Nurse] - 05/19/17 2:30 pm <Ignacio Campos - Last Filed: 05/19/17 08:48> Date of Encounter: 05/15/17 Objective Vital Signs - Last 8 Hours Temp Pulse Resp BP Pulse Ox 05/19/17 04:13 99.2 F 104 20 146/74 94 Intake and Output 05/18/17 05/19/17 05/19/17 23:59 07:59 15:59 Intake Total 2310 / 2310 370 / 370 Output Total 450 / 450 325 / 325 Balance 1860 / 1860 45 / 45 Intake: IV Fluids 2310 / 2310 350 / 350 Clinimix E 5%-15% SOLUTION 2, 2210 / 2210 000 ML Travasol 10% 200 ML @ 91 .6 mls/hr IVC .Q24H [facility] with M. v.i. Adult 10 ml Rx#:[id number] Intralipid 20% 250 ML @ 21 mls/ 250 / 250 hr IVPB DAILY@1700 [facility] Rx#: [id number] Flagyl Premix 500 MG/100 ML 500 100 / 100 100 / 100 mg In 100 ml @ 100 mls/hr IVPB Q8HR [facility] Rx#:[id number] Oral 0 / 0 20 / 20 Output: Urine 450 / 450 325 / 325 Other: Stool Size Small Stool Consistency loose Stool Color Brown # Bowel Movement Diapers 2 Blood Glucose* 101 120 - Labs 05/19/17 04:25 05/19/17 04:25 Diabetes panel 05/19/17 Range/Units 04:25 Sodium 138 (136-145) mEq/L Potassium 3.6 (3.5-5.1) mEq/L Chloride 105 (98-107) mEq/L Carbon Dioxide 26 (23-29) mEq/L BUN 19 (6-20) mg/dL Creatinine 0.45 L (0.60-1.20) mg/dL Glucose 101 (70-105) mg/dL Calcium 8.4 L (8.6-10.3) mg/dL Calcium panel 05/19/17 Range/Units 04:25 Calcium 8.4 L (8.6-10.3) mg/dL Pituitary panel 05/19/17 Range/Units 04:25 Sodium 138 (136-145) mEq/L Potassium 3.6 (3.5-5.1) mEq/L Chloride 105 (98-107) mEq/L Carbon Dioxide 26 (23-29) mEq/L BUN 19 (6-20) mg/dL Creatinine 0.45 L (0.60-1.20) mg/dL Glucose 101 (70-105) mg/dL Calcium 8.4 L (8.6-10.3) mg/dL Adrenal panel 05/19/17 Range/Units 04:25 Sodium 138 (136-145) mEq/L Potassium 3.6 (3.5-5.1) mEq/L Chloride 105 (98-107) mEq/L Carbon Dioxide 26 (23-29) mEq/L BUN 19 (6-20) mg/dL Creatinine 0.45 L (0.60-1.20) mg/dL Glucose 101 (70-105) mg/dL Calcium 8.4 L (8.6-10.3) mg/dL - Attending Attestation I have personally performed a face to face evaluation on this patient. I have reviewed and agree with the care plan. History and Exam by me shows: The patient is seen and evaluated on morning rounds. I shared the clinical information with the clinical nurse practitioner. She continues to have a nasogastric tube in place and shows very little bowel function. We will continue supportive care. I expect her to make a full recovery
[2017-05-15] MEDS: Acetaminophen IV 1,000 MG/100 ML INFUS..BTL IVPB SCH ×3 (12:17→18:22)
[2017-05-15] MEDS: Azithromycin 500 MG in D5% in Water 250 ML IVPB SCH (15:53)
[2017-05-15] MEDS: Ketorolac 15 MG/ML VIAL IVP SCH ×2 (15:54→21:14)
[2017-05-15] MEDS: Clinimix E 5%-15% SOLUTION 2,000 ML, Parenteral Amino Acid 10% 200 ML with MVI, adult ... IVC SCH (17:26)
[2017-05-15] MEDS ORDERED: Acetaminophen IV 1,000 MG/100 ML INFUS..BTL IVPB SCH (18:00)
--- NOTE | 2017-05-15 20:49 | Internal Med Progress Note ---
Date of Encounter: 05/15/17 Time of Encounter: 20:47 - Assessment and plan (1) Sepsis Current Visit: Yes Status: Acute Assessment and plan: Patient with 2 SIRS criteria with leukocytosis, HR >90 Suspected source is pneumonia vs bowel perforation. Procalcitonin from 05/12 is 0.51 suggestive of bacterial source. Repeat procalcitonin today WBC improving. Continue Cefepime and Vancomycin. Resume Flagyl to cover intraabdominal sources. Has allergy to penicillins. Azithromycin course completed. Qualifiers: Sepsis type: sepsis due to unspecified organism Qualified Code(s): A41.9 - Sepsis, unspecified organism (2) Fluid overload, unspecified Current Visit: Yes Status: Acute Assessment and plan: Stable post-operatively Qualifiers: Hypervolemia type: unspecified Qualified Code(s): E87.70 - Fluid overload, unspecified (3) Acute respiratory failure with hypoxia Current Visit: Yes Status: Acute Assessment and plan: Secondary to fluid overload. There is questionable pneumonia as well based on chest x-ray, however elevated white count may be attributed to small bowel perforation. She should be emperically treated for both. (4) Small bowel perforation Current Visit: Yes Status: Acute Assessment and plan: Managed per Surgery. Patient likely going to OR today. (5) Chest pain Current Visit: Yes Status: Acute Qualifiers: Chest pain type: chest pain on breathing Qualified Code(s): R07.1 - Chest pain on breathing; R07.81 - Pleurodynia (6) Acute cholecystitis Current Visit: Yes Status: Acute Assessment and plan: Status post cholecystectomy (7) Hypertension Current Visit: Yes Status: Chronic Assessment and plan: Blood pressure medications should be held for SBP <100. Qualifiers: Hypertension type: unspecified Qualified Code(s): I10 - Essential (primary ) hypertension (8) Hypothyroidism Current Visit: Yes Status: Chronic Qualifiers: Hypothyroidism type: postablative Qualified Code(s): E89.0 - Postprocedural hypothyroidism (9) Morbid obesity with BMI of 40.0-44.9, adult Current Visit: Yes Status: Acute (10) DVT prophylaxis Current Visit: Yes Status: Acute Assessment and plan: Heparin 5,000 sq BID - Subjective Interval history: Nursing is currently working with patient to sit up. She has no complaints for me. - Constitutional Vitals: Temp Pulse Resp BP Pulse Ox 97.4 F L 81 20 97/69 88 05/15/17 14:56 05/15/17 14:56 05/15/17 15:58 05/15/17 14:56 05/15/17 15:58 General appearance: Present: A&O X 3, obese, answers questions appropriately Exam: anxious appearing CVS: RRR Lungs: decreased breath sounds, fair air exchange ext: 1+ bilateral lower extremity edema. Internal Medicine: Result - Labs CBC & Chem 7: 05/15/17 04:30 05/15/17 04:30 Labs: Short CBC 05/15/17 Range/Units 04:30 WBC 23.3 H (4.3-11.1) K/mcL Hgb 10.3 L (11.5-15.4) g/dL Hct 32.3 L (35.3-44.9) % Plt Count 510 H (140-400) K/mcL Neutrophils # 18.2 H (1.6-8.9) K/mcL BMP 05/15/17 04:30 Sodium 136 Potassium 3.2 L Chloride 94 L Carbon Dioxide 34 H BUN 13 Creatinine 0.49 L Glucose 134 H Calcium 8.2 L - ABG Interpretation ABG results: ABG ABG pH 7.51 pH Units (7.32-7.45) H 05/12/17 16:40 ABG pCO2 37 mmHg (35-45) 05/12/17 16:40 ABG pO2 72 mmHg (85-104) L 05/12/17 16:40 ABG O2 Saturation 96 % (95-98) 05/12/17 16:40 PT/INR, D-dimer PT 13.5 Seconds (9.4-12.1) H 05/05/17 06:18 - VTE Reasons for not Prescribing Prophylaxis: Treatment not Indicated - Low risk for VTE Documentation of Mechanical Device: Intermittent pneumatic compression device Consult Discharge Plan - Plan Instructions: Laparoscopic Cholecystectomy (DC) Additional Instructions: General Surgical Discharge Instructions 1. No pushing, pulling, or lifting greater than 15 lbs for 2-4 weeks (depending upon procedure). 2. You may shower beginning today, but no tub baths, soaking, or swimming for 2 weeks. 3. You may resume driving when you are off narcotics and are safe to react in a car. 4. Take ibuprofen every 8 hours for discomfort. If this does not relieve discomfort, you may take the as needed Percocet. Take narcotics as directed. Do not take more narcotics then directed and do not share your narcotics with any other person. Do not drink alcohol while on narcotics. 5. Take stool softeners (Colace) or a water based laxative (Miralax) while taking narcotics. You may hold for loose stools. 6. Report any fevers greater than 100.5F, increase abdominal discomfort, drainage that looks like pus, increased redness or pain at the surgical site, or any vomiting. 7. Report any pain in the calves, shortness of breath, or rapid heartbeat. 8. Follow-up in the office as directed. 9. If you were prescribed antibiotics, do not stop them without talking to your provider. Referrals: Adriana Barrios CNP [Primary Care Provider] - Mariama Gonzales CNP [Advanced Practice Nurse] - 05/19/17 2:30 pm
[2017-05-15] MEDS ORDERED: Furosemide 40 MG/4 ML VIAL IVP SCH (21:00)
[2017-05-15] MEDS ORDERED: Furosemide 20 MG/2 ML VIAL IVP SCH (21:00)
[2017-05-16] MEDS: Acetaminophen IV 1,000 MG/100 ML INFUS..BTL IVPB SCH ×4 (00:05→18:49)
[2017-05-16] MEDS: Insulin LISPRO 300 UNITS/3 ML VIAL SQ SCH ×6 (00:09→21:09)
[2017-05-16] MEDS: Ketorolac 15 MG/ML VIAL IVP SCH ×4 (01:59→21:23)
[2017-05-16] MEDS: Ipratropium/Albuterol Neb 3 ML IH SCH ×4 (04:15→22:21)
[2017-05-16] MEDS: Levothyroxine Sodium 100 MCG VIAL IVP SCH (06:10)
[2017-05-16] MEDS: *HR* Heparin 5,000 UNIT/ML VIAL SQ SCH ×3 (06:11→19:32)
[2017-05-16 06:16] LABS: Magnesium 2.5 mg/dL (1.6-2.6)
[2017-05-16 06:22] LABS: Phosphorous 2.7 mg/dL (2.7-4.5)
[2017-05-16 06:24] LABS: BUN/Creatinine Ratio 42 (6-26); Blood Urea Nitrogen 22 mg/dL (6-20); Calcium 8.3 mg/dL (8.6-10.3); Carbon Dioxide 31 mEq/L (23-29); Chloride 97 mEq/L (98-107); Glucose 92 mg/dL (70-105); Osmolality,Calculated 287 (280-300); Potassium 3.2 mEq/L (3.5-5.1); Sodium 137 mEq/L (136-145); eGFR For African Americans > 60 (> 60); eGFR For Non-African Americans > 60 (> 60)
[2017-05-16 06:35] LABS: Basophils # 0.1 K/mcL (0.0-0.2); Basophils % 0.5 %; Eosinophils # 0.6 K/mcL (0.0-0.6); Eosinophils % 2.7 %; Hematocrit 33.2 % (35.3-44.9); Hemoglobin 10.2 g/dL (11.5-15.4); Immature Granulocytes % 6.6 % (0-4); Lymphocytes # 2.8 K/mcL (0.6-4.6); Lymphocytes % 13.4 %; Mean Corpuscular HGB Conc 30.7 g/dL (31.6-35.5); Mean Corpuscular Hemoglobin 25.4 pg (28.0-33.3); Mean Corpuscular Volume 82.8 fL (83.0-100.0); Mean Platelet Volume 9.6 fL (9.4-12.4); Monocytes # 1.7 K/mcL (0.0-1.3); Monocytes % 8.2 %; Nucleated Red Blood Cells 0.1 /100 WBC (0); Platelet Count 482 K/mcL (140-400); Red Blood Count 4.01 M/mcL (3.82-4.97); Red Cell Distribution Width 17.2 % (11.5-14.5); Segmented Neutrophils % 68.6 %
[2017-05-16 06:41] LABS: Neutrophils # 14.3 K/mcL (1.6-8.9)
--- NOTE | 2017-05-16 08:06 | Internal Med Progress Note ---
Date of Encounter: 05/16/17 Time of Encounter: 08:00 - Assessment and plan (1) Acute respiratory failure with hypoxia Current Visit: Yes Status: Acute Assessment and plan: Secondary to HCAP fluid overload. Pneumonia as well based on chest x-ray, has small bowel perforation but course seems more consistent with HCAP. She should be emperically treated for both. Continue antibiotics Lasix as needed - currently holding today Patient needs I.S. and reluctant to get up and move much. (2) Sepsis Current Visit: Yes Status: Acute Assessment and plan: Patient with 2 SIRS criteria with leukocytosis, HR >90 -Bacterial as procalcitonin of 0.51 (05/12/17). -Suspected source is pneumonia vs bowel perforation. -Continue Cefepime and Vancomycin. Resume Flagyl to cover intraabdominal sources. Has allergy to penicillins. -Azithromycin course completed. Continue antibiotic course cefepime, flagyl, vancomycin - follow-up repeat procalcitonin level to guide antibiotic therapy She has hypotension but I suspect this is not from sepsis. Qualifiers: Sepsis type: sepsis due to unspecified organism Qualified Code(s): A41.9 - Sepsis, unspecified organism (3) Fluid overload, unspecified Current Visit: Yes Status: Acute Assessment and plan: Stable post-operatively, will hold Lasix for now and do serial exams. Qualifiers: Hypervolemia type: unspecified Qualified Code(s): E87.70 - Fluid overload, unspecified (4) Small bowel perforation Current Visit: Yes Status: Acute Assessment and plan: Managed per Surgery. Patient likely going to OR today. (5) Chest pain Current Visit: Yes Status: Resolved Qualifiers: Chest pain type: chest pain on breathing Qualified Code(s): R07.1 - Chest pain on breathing; R07.81 - Pleurodynia (6) Acute cholecystitis Current Visit: Yes Status: Acute Assessment and plan: Status post cholecystectomy (7) Hypertension Current Visit: Yes Status: Chronic Assessment and plan: Blood pressure medications should be held for SBP <100. Currently hypotensive Qualifiers: Hypertension type: unspecified Qualified Code(s): I10 - Essential (primary ) hypertension (8) Hypothyroidism Current Visit: Yes Status: Chronic Qualifiers: Hypothyroidism type: postablative Qualified Code(s): E89.0 - Postprocedural hypothyroidism (9) Morbid obesity with BMI of 40.0-44.9, adult Current Visit: Yes Status: Acute (10) DVT prophylaxis Current Visit: Yes Status: Acute Assessment and plan: Heparin 5,000 sq BID - Subjective Interval history: Patient said she had a rough night. Not very active this morning, laying in bed. Breathing stable. Denies fevers/chills, n/v. - Constitutional Vitals: Temp Pulse Resp BP Pulse Ox 98.0 F 86 14 92/59 96 05/16/17 04:33 05/16/17 04:33 05/16/17 04:33 05/16/17 04:33 05/16/17 04:33 General appearance: Present: A&O X 3, obese, answers questions appropriately Exam: Laying in bed inactive CVS: RRR Lungs: Poor resp effort. absent breath sounds at bases but not wheezing and rales appreciated. Abd: midline incision c/d/i ext: trace edema bilaterally lower extremities Internal Medicine: Result - Labs CBC & Chem 7: 05/16/17 04:27 05/16/17 04:27 Labs: Short CBC 05/16/17 Range/Units 04:27 WBC 20.9 H (4.3-11.1) K/mcL Hgb 10.2 L (11.5-15.4) g/dL Hct 33.2 L (35.3-44.9) % Plt Count 482 H (140-400) K/mcL BMP 05/16/17 04:27 Sodium 137 Potassium 3.2 L Chloride 97 L Carbon Dioxide 31 H BUN 22 H Creatinine 0.52 L Glucose 92 Calcium 8.3 L - ABG Interpretation ABG results: ABG ABG pH 7.51 pH Units (7.32-7.45) H 05/12/17 16:40 ABG pCO2 37 mmHg (35-45) 05/12/17 16:40 ABG pO2 72 mmHg (85-104) L 05/12/17 16:40 ABG O2 Saturation 96 % (95-98) 05/12/17 16:40 PT/INR, D-dimer PT 13.5 Seconds (9.4-12.1) H 05/05/17 06:18 - VTE Reasons for not Prescribing Prophylaxis: Treatment not Indicated - Low risk for VTE Documentation of Mechanical Device: Intermittent pneumatic compression device Consult Discharge Plan - Plan Instructions: Laparoscopic Cholecystectomy (DC) Additional Instructions: General Surgical Discharge Instructions 1. No pushing, pulling, or lifting greater than 15 lbs for 2-4 weeks (depending upon procedure). 2. You may shower beginning today, but no tub baths, soaking, or swimming for 2 weeks. 3. You may resume driving when you are off narcotics and are safe to react in a car. 4. Take ibuprofen every 8 hours for discomfort. If this does not relieve discomfort, you may take the as needed Percocet. Take narcotics as directed. Do not take more narcotics then directed and do not share your narcotics with any other person. Do not drink alcohol while on narcotics. 5. Take stool softeners (Colace) or a water based laxative (Miralax) while taking narcotics. You may hold for loose stools. 6. Report any fevers greater than 100.5F, increase abdominal discomfort, drainage that looks like pus, increased redness or pain at the surgical site, or any vomiting. 7. Report any pain in the calves, shortness of breath, or rapid heartbeat. 8. Follow-up in the office as directed. 9. If you were prescribed antibiotics, do not stop them without talking to your provider. Referrals: Adriana Barrios CNP [Primary Care Provider] - Mariama Gonzales CNP [Advanced Practice Nurse] - 05/19/17 2:30 pm
[2017-05-16] MEDS: MetroNIDAZOLE 500 MG/100 ML 500 MG/100 ML BAG IVPB SCH ×2 (08:25→17:41)
[2017-05-16] MEDS: Cefepime HCl 2,000 MG in Water for inj. (sterile) 20 ML 20 ML IVP SCH ×3 (08:28→19:30)
[2017-05-16 09:19] LABS: Platelet Estimate Normal (Normal)
--- NOTE | 2017-05-16 10:12 | General Surgery Progress Note ---
<Mariama Gonzales - Last Filed: 05/16/17 10:42> Date of Encounter: 05/16/17 Time of Encounter: 10:00 - Assessment and Plan (1) Small bowel perforation Current Visit: Yes Status: Acute POD # 10 s/p lap shania 05/05/[address] Campos, pathology notes acute cholecystitis and cholelithiasis POD #3 s/p resection of 10 cm of small bowel with primary anastomoses, drainage of multiple interloop abscesses, lysis of adhesion performed on 05/13/2017 for a pre-op diagnosis of a small bowel perforation per Dr. Campos Plan: NPO except one half small cup of ice chips every 8 hours for pleasure NG tube to LIWS Await on return of bowel function Add Reglan 10 mg IV every 6 hours for the next 48 hours continue supportive care and discomfort management while awaiting return about function TPN and total fluid status management per hospitalist Gay catheter management per hospitalist IV antibiotics- cefepime, flagyl, vancomycin continue G.I. and DVT prophylaxis out of bed to chair at least 3 times daily. Ambulate with assistance 3 times daily. May clamp NG tube for up to 30 minutes for ambulation. PT consult for mobilization Repeat am labs- CBC, BMP (2) Acute cholecystitis Current Visit: Yes Status: Acute POD # 10 s/p lap shania 05/05/[address] Campos, pathology notes acute cholecystitis and cholelithiasis POD #3 s/p resection of 10 cm of small bowel with primary anastomoses, drainage of multiple interloop abscesses, lysis of adhesion performed on 05/13/2017 for a pre-op diagnosis of a small bowel perforation per Dr. Campos Plan: NPO except one half small cup of ice chips every 8 hours for pleasure NG tube to LIWS Await on return of bowel function continue supportive care and discomfort management while awaiting return about function TPN and total fluid status management per hospitalist Gay catheter management per hospitalist IV antibiotics- cefepime, flagyl, vancomycin continue G.I. and DVT prophylaxis out of bed to chair at least 3 times daily. Ambulate with assistance 3 times daily. May clamp NG tube for up to 30 minutes for ambulation. PT consult for mobilization Repeat am labs- CBC, BMP (3) Acute urinary retention Current Visit: Yes Status: Acute Continue gay catheter to SD for strict I&Os Will resume flomax when the patient has return of bowel function (4) Shortness of breath Current Visit: Yes Status: Acute Duonebs scheduled every 6 hours Incentive Spirometer every 1 hour while awake (5) Hypothyroidism Current Visit: Yes Status: Chronic Continue IV synthroid May transition to by mouth with return of bowel function Qualifiers: Hypothyroidism type: postablative Qualified Code(s): E89.0 - Postprocedural hypothyroidism (6) Hypertension Current Visit: Yes Status: Chronic Hypotensive at this time Will continue to monitor and adjust as necessary Qualifiers: Hypertension type: unspecified Qualified Code(s): I10 - Essential (primary ) hypertension (7) Leukocytosis Current Visit: Yes Status: Acute WBC- 35.5>23.3>20.9 Continue IV antibiotics- Cefepime, Flagyl, Vancomycin Repeat am labs Qualifiers: Leukocytosis type: unspecified Qualified Code(s): D72.829 - Elevated white blood cell count, unspecified (8) DVT prophylaxis Current Visit: Yes Status: Acute Continue heparin 5000 units subcutaneous twice daily for DVT prophylaxis EPCDs to bilateral lower extremities as ordered for DVT prophylaxis [facility] 3 times a day with assistance Subjective Patient reports: no new complaints, still having pain (post-surgical unchanged) , no flatus, no bowel movement, afebrile, other (Patient states that she has not been out of bed today and she has not ambulated since surgery; IS - 500ml) Objective Vital Signs - Last 8 Hours Temp Pulse Resp BP Pulse Ox 05/16/17 04:33 98.0 F 86 14 92/59 96 05/16/17 04:15 17 94 Intake and Output 05/15/17 05/16/17 05/16/17 23:59 07:59 15:59 Intake Total 2384 / 2384 450 / 450 20 / 20 Output Total 800 / 800 200 / 200 Balance 1584 / 1584 250 / 250 20 / 20 Intake: IV Fluids 2384 / 2384 450 / 450 20 / 20 0.9 % Sodium Chloride 1,000 ML 800 / 800 @ 125 mls/hr IVC .Q8H [facility] Rx#: [id number] Clinimix E 5%-15% SOLUTION 2, 1034 / 1034 000 ML @ 50 mls/hr IVC .Q24H [facility] with M.v.i. Adult 10 ml Rx# :[id number] Maxipime 2,000 MG In Water for 20 / 20 inj. (sterile) 20 ML @ 300 mls/ hr IVP Q8HR REPLACED BY [facility] Rx#:[id number] Ofirmev 1,000 mg/100 ml 1,000 100 / 100 200 / 200 mg In 100 ml @ 400 mls/hr IVPB Q6HR REPLACED BY [facility] Rx#:[id number] Zithromax 500 mg In Dextrose 5% 250 / 250 250 ML @ 252 mls/hr IVPB Q24H [facility] Rx#:[id number] Intralipid 20% 250 ML @ 21 mls/ 250 / 250 hr IVPB DAILY@1700 REPLACED BY [facility] Rx#: [id number] Zosyn 3.375 GM In 0.9 % Sodium 100 / 100 Chloride 100 ML @ 25 mls/hr IVPB Q8H REPLACED BY [facility] Rx#:[id number] Vancocin 1,500 MG In 0.9 % 100 / 100 Sodium Chloride 250 ML @ 166.67 mls/hr IVPB Q12H REPLACED BY [facility] Rx#: [id number] Oral 0 / 0 0 / 0 Output: Catheter 650 / 650 200 / 200 Gastric Drainage 150 / 150 Other: Meal npo Blood Glucose* 110 100 - General physical appearance well developed, no distress, obese - Eyes normal ocular movement - ENT dry mucosa, atraumatic, normocephalic - Neck Neck exam: trachea midline - Respiratory clear to auscultation, other (diminished bibasilar bases; poor respiratory effort; IS 500ml) - Cardiovascular Cardiovascular exam: Present: RRR - Abdomen Abdomen: Present: soft, tender (Expected postoperative tenderness), wound (NG tube to LIWS (minimal output noted)) - Incision Incision: Present: clean and dry, intact - Genitourinary other (Gay catheter to straight drain with clear, yellow urine) - Neurologic CN 2-12 grossly intact - Musculoskeletal other (Moderate deconditioning) - Psychiatric oriented to time, oriented to person, oriented to place, speech is normal, memory intact - Labs 05/16/17 04:27 05/16/17 04:27 Diabetes panel 05/16/17 Range/Units 04:27 Sodium 137 (136-145) mEq/L Potassium 3.2 L (3.5-5.1) mEq/L Chloride 97 L (98-107) mEq/L Carbon Dioxide 31 H (23-29) mEq/L BUN 22 H (6-20) mg/dL Creatinine 0.52 L (0.60-1.20) mg/dL Glucose 92 (70-105) mg/dL Calcium 8.3 L (8.6-10.3) mg/dL Calcium panel 05/16/17 05/16/17 Range/Units 04:27 04:27 Calcium 8.3 L (8.6-10.3) mg/dL Phosphorus 2.7 (2.7-4.5) mg/dL Pituitary panel 05/16/17 Range/Units 04:27 Sodium 137 (136-145) mEq/L Potassium 3.2 L (3.5-5.1) mEq/L Chloride 97 L (98-107) mEq/L Carbon Dioxide 31 H (23-29) mEq/L BUN 22 H (6-20) mg/dL Creatinine 0.52 L (0.60-1.20) mg/dL Glucose 92 (70-105) mg/dL Calcium 8.3 L (8.6-10.3) mg/dL Adrenal panel 05/16/17 Range/Units 04:27 Sodium 137 (136-145) mEq/L Potassium 3.2 L (3.5-5.1) mEq/L Chloride 97 L (98-107) mEq/L Carbon Dioxide 31 H (23-29) mEq/L BUN 22 H (6-20) mg/dL Creatinine 0.52 L (0.60-1.20) mg/dL Glucose 92 (70-105) mg/dL Calcium 8.3 L (8.6-10.3) mg/dL - VTE Reasons for not Prescribing Prophylaxis: Treatment not Indicated - Low risk for VTE Documentation of Mechanical Device: Intermittent pneumatic compression device Consult Discharge Plan - Plan Instructions: Laparoscopic Cholecystectomy (DC) Additional Instructions: General Surgical Discharge Instructions 1. No pushing, pulling, or lifting greater than 15 lbs for 2-4 weeks (depending upon procedure). 2. You may shower beginning today, but no tub baths, soaking, or swimming for 2 weeks. 3. You may resume driving when you are off narcotics and are safe to react in a car. 4. Take ibuprofen every 8 hours for discomfort. If this does not relieve discomfort, you may take the as needed Percocet. Take narcotics as directed. Do not take more narcotics then directed and do not share your narcotics with any other person. Do not drink alcohol while on narcotics. 5. Take stool softeners (Colace) or a water based laxative (Miralax) while taking narcotics. You may hold for loose stools. 6. Report any fevers greater than 100.5F, increase abdominal discomfort, drainage that looks like pus, increased redness or pain at the surgical site, or any vomiting. 7. Report any pain in the calves, shortness of breath, or rapid heartbeat. 8. Follow-up in the office as directed. 9. If you were prescribed antibiotics, do not stop them without talking to your provider. Referrals: Adriana Barrios CNP [Primary Care Provider] - Mariama Gonzales CNP [Advanced Practice Nurse] - 05/19/17 2:30 pm - Attending Attestation For this encounter, I have reviewed the [employer] or PA documentation, treatment plan, and medical decision making; and I have had face to face time with this patient. <Ignacio Campos - Last Filed: 05/19/17 08:51> Date of Encounter: 05/16/17 Objective Vital Signs - Last 8 Hours Temp Pulse Resp BP Pulse Ox 05/19/17 04:13 99.2 F 104 20 146/74 94 Intake and Output 05/18/17 05/19/17 05/19/17 23:59 07:59 15:59 Intake Total 2310 / 2310 370 / 370 Output Total 450 / 450 325 / 325 Balance 1860 / 1860 45 / 45 Intake: IV Fluids 2310 / 2310 350 / 350 Clinimix E 5%-15% SOLUTION 2, 2209 / 221 000 ML Travasol 10% 200 ML @ 91 .6 mls/hr IVC .Q24H [facility] with M. v.i. Adult 10 ml Rx#:[id number] Intralipid 20% 250 ML @ 21 mls/ 250 / 250 hr IVPB DAILY@1700 [facility] Rx#: [id number] Flagyl Premix 500 MG/100 ML 500 100 / 100 100 / 100 mg In 100 ml @ 100 mls/hr IVPB Q8HR [facility] Rx#:[id number] Oral 0 / 0 20 / 20 Output: Urine 450 / 450 325 / 325 Other: Stool Size Small Stool Consistency loose Stool Color Brown # Bowel Movement Diapers 2 Blood Glucose* 101 120 - Labs 05/19/17 04:25 05/19/17 04:25 Diabetes panel 05/19/17 Range/Units 04:25 Sodium 138 (136-145) mEq/L Potassium 3.6 (3.5-5.1) mEq/L Chloride 105 (98-107) mEq/L Carbon Dioxide 26 (23-29) mEq/L BUN 19 (6-20) mg/dL Creatinine 0.45 L (0.60-1.20) mg/dL Glucose 101 (70-105) mg/dL Calcium 8.4 L (8.6-10.3) mg/dL Calcium panel 05/19/17 Range/Units 04:25 Calcium 8.4 L (8.6-10.3) mg/dL Pituitary panel 05/19/17 Range/Units 04:25 Sodium 138 (136-145) mEq/L Potassium 3.6 (3.5-5.1) mEq/L Chloride 105 (98-107) mEq/L Carbon Dioxide 26 (23-29) mEq/L BUN 19 (6-20) mg/dL Creatinine 0.45 L (0.60-1.20) mg/dL Glucose 101 (70-105) mg/dL Calcium 8.4 L (8.6-10.3) mg/dL Adrenal panel 05/19/17 Range/Units 04:25 Sodium 138 (136-145) mEq/L Potassium 3.6 (3.5-5.1) mEq/L Chloride 105 (98-107) mEq/L Carbon Dioxide 26 (23-29) mEq/L BUN 19 (6-20) mg/dL Creatinine 0.45 L (0.60-1.20) mg/dL Glucose 101 (70-105) mg/dL Calcium 8.4 L (8.6-10.3) mg/dL - Attending Attestation The patient is seen and evaluated on morning rounds. He information is discussed the clinical nurse practitioner. She continues to demonstrate no evidence of bowel function. We will continue nasogastric tube drainage and supportive care. Ignacio Campos MD FACS
[2017-05-16] MEDS: Metoclopramide 10 MG/2 ML VIAL IVP SCH ×2 (11:26→17:40)
[2017-05-16] MEDS: Clinimix E 5%-15% SOLUTION 2,000 ML, Parenteral Amino Acid 10% 200 ML with MVI, adult ... IVC SCH ×2 (17:32→17:36)
[2017-05-16] MEDS: Furosemide 40 MG/4 ML VIAL IVP SCH (19:32)
[2017-05-16] MEDS: Azithromycin 500 MG in D5% in Water 250 ML IVPB SCH (19:33)
[2017-05-17] MEDS: Metoclopramide 10 MG/2 ML VIAL IVP SCH ×5 (00:28→23:44)
[2017-05-17] MEDS: Cefepime HCl 2,000 MG in Water for inj. (sterile) 20 ML 20 ML IVP SCH ×4 (00:29→23:43)
[2017-05-17] MEDS: Acetaminophen IV 1,000 MG/100 ML INFUS..BTL IVPB SCH ×5 (00:30→23:42)
[2017-05-17] MEDS: MetroNIDAZOLE 500 MG/100 ML 500 MG/100 ML BAG IVPB SCH ×4 (00:30→23:43)
[2017-05-17] MEDS: Insulin LISPRO 300 UNITS/3 ML VIAL SQ SCH ×6 (00:58→20:09)
[2017-05-17] MEDS: Ketorolac 15 MG/ML VIAL IVP SCH ×4 (02:11→20:18)
[2017-05-17] MEDS: Ipratropium/Albuterol Neb 3 ML IH SCH ×4 (04:23→22:01)
[2017-05-17 04:29] LABS: Hematocrit 32.2 % (35.3-44.9); Mean Corpuscular HGB Conc 31.1 g/dL (31.6-35.5); Mean Corpuscular Hemoglobin 25.5 pg (28.0-33.3); Mean Corpuscular Volume 82.1 fL (83.0-100.0); Mean Platelet Volume 9.5 fL (9.4-12.4); Nucleated Red Blood Cells 0.1 /100 WBC (0); Platelet Count 498 K/mcL (140-400); Red Blood Count 3.92 M/mcL (3.82-4.97); Red Cell Distribution Width 17.2 % (11.5-14.5)
[2017-05-17 05:04] LABS: Hypersegmented Neutrophils Present (Not Present); Lymphocytes # 2.9 K/mcL (0.6-4.6); Monocytes # 1.7 K/mcL (0.0-1.3); Neutrophils # 15.7 K/mcL (1.6-8.9); Reactive Lymphocytes Present (Not Present)
[2017-05-17 05:31] LABS: Magnesium 2.5 mg/dL (1.6-2.6)
[2017-05-17 05:33] LABS: BUN/Creatinine Ratio 57 (6-26); Blood Urea Nitrogen 26 mg/dL (6-20); Calcium 8.3 mg/dL (8.6-10.3); Carbon Dioxide 29 mEq/L (23-29); Chloride 101 mEq/L (98-107); Glucose 89 mg/dL (70-105); Osmolality,Calculated 292 (280-300); Potassium 3.2 mEq/L (3.5-5.1); Sodium 139 mEq/L (136-145); eGFR For African Americans > 60 (> 60); eGFR For Non-African Americans > 60 (> 60)
[2017-05-17] MEDS: *HR* Heparin 5,000 UNIT/ML VIAL SQ SCH ×2 (05:58→17:35)
[2017-05-17] MEDS: Levothyroxine Sodium 100 MCG VIAL IVP SCH (05:58)
--- NOTE | 2017-05-17 14:10 | Internal Med Progress Note ---
Date of Encounter: 05/17/17 Time of Encounter: 13:56 - Assessment and plan (1) Acute respiratory failure with hypoxia Current Visit: Yes Status: Acute Assessment and plan: Secondary to HCAP fluid overload. Pneumonia as well based on chest x-ray, has small bowel perforation but course seems more consistent with HCAP. She should be emperically treated for both. Continue antibiotics Patient needs I.S. and reluctant to get up and move much. I recommend diuresis as tolerated (2) Sepsis Current Visit: Yes Status: Acute Assessment and plan: Patient with 2 SIRS criteria with leukocytosis, HR >90 -Bacterial as procalcitonin of 0.51 (05/12/17). -Suspected source is pneumonia vs bowel perforation. -Continue Cefepime and Vancomycin. Resume Flagyl to cover intraabdominal sources. Has allergy to penicillins. -Azithromycin course completed. Continue antibiotic course cefepime, flagyl, vancomycin - follow-up repeat procalcitonin level to guide antibiotic therapy She has hypotension but I suspect this is not from sepsis. Qualifiers: Sepsis type: sepsis due to unspecified organism Qualified Code(s): A41.9 - Sepsis, unspecified organism (3) Fluid overload, unspecified Current Visit: Yes Status: Acute Assessment and plan: Stable post-operatively, will hold Lasix for now and do serial exams. Qualifiers: Hypervolemia type: unspecified Qualified Code(s): E87.70 - Fluid overload, unspecified (4) Small bowel perforation Current Visit: Yes Status: Acute Assessment and plan: Managed per Surgery. Patient likely going to OR today. (5) Chest pain Current Visit: Yes Status: Resolved Qualifiers: Chest pain type: chest pain on breathing Qualified Code(s): R07.1 - Chest pain on breathing; R07.81 - Pleurodynia (6) Acute cholecystitis Current Visit: Yes Status: Acute Assessment and plan: Status post cholecystectomy (7) Hypertension Current Visit: Yes Status: Chronic Assessment and plan: Blood pressure medications should be held for SBP <100. Currently hypotensive Qualifiers: Hypertension type: unspecified Qualified Code(s): I10 - Essential (primary ) hypertension (8) Hypothyroidism Current Visit: Yes Status: Chronic Qualifiers: Hypothyroidism type: postablative Qualified Code(s): E89.0 - Postprocedural hypothyroidism (9) Morbid obesity with BMI of 40.0-44.9, adult Current Visit: Yes Status: Acute (10) DVT prophylaxis Current Visit: Yes Status: Acute Assessment and plan: Heparin 5,000 sq BID - Subjective Interval history: Not having much improving in respiratory status - Constitutional Vitals: Temp Pulse Resp BP Pulse Ox 97.5 F L 94 22 128/80 95 05/17/17 11:29 05/17/17 11:29 05/17/17 11:29 05/17/17 11:29 05/17/17 11:29 General appearance: Present: A&O X 3, obese, answers questions appropriately Exam: anxious appearing CVS: RRR Lungs: decreased breath sounds, fair air exchange ext: 1+ bilateral lower extremity edema. Internal Medicine: Result - Labs CBC & Chem 7: 05/17/17 04:05 05/17/17 04:05 Labs: Short CBC 05/17/17 Range/Units 04:05 WBC 20.6 H (4.3-11.1) K/mcL Hgb 10.0 L (11.5-15.4) g/dL Hct 32.2 L (35.3-44.9) % Plt Count 498 H (140-400) K/mcL Neutrophils # 15.7 H (1.6-8.9) K/mcL BMP 05/17/17 04:05 Sodium 139 Potassium 3.2 L Chloride 101 Carbon Dioxide 29 BUN 26 H Creatinine 0.46 L Glucose 89 Calcium 8.3 L - ABG Interpretation ABG results: ABG ABG pH 7.51 pH Units (7.32-7.45) H 05/12/17 16:40 ABG pCO2 37 mmHg (35-45) 05/12/17 16:40 ABG pO2 72 mmHg (85-104) L 05/12/17 16:40 ABG O2 Saturation 96 % (95-98) 05/12/17 16:40 PT/INR, D-dimer PT 13.5 Seconds (9.4-12.1) H 05/05/17 06:18 - VTE Reasons for not Prescribing Prophylaxis: Treatment not Indicated - Low risk for VTE Documentation of Mechanical Device: Intermittent pneumatic compression device Consult Discharge Plan - Plan Instructions: Laparoscopic Cholecystectomy (DC) Additional Instructions: General Surgical Discharge Instructions 1. No pushing, pulling, or lifting greater than 15 lbs for 2-4 weeks (depending upon procedure). 2. You may shower beginning today, but no tub baths, soaking, or swimming for 2 weeks. 3. You may resume driving when you are off narcotics and are safe to react in a car. 4. Take ibuprofen every 8 hours for discomfort. If this does not relieve discomfort, you may take the as needed Percocet. Take narcotics as directed. Do not take more narcotics then directed and do not share your narcotics with any other person. Do not drink alcohol while on narcotics. 5. Take stool softeners (Colace) or a water based laxative (Miralax) while taking narcotics. You may hold for loose stools. 6. Report any fevers greater than 100.5F, increase abdominal discomfort, drainage that looks like pus, increased redness or pain at the surgical site, or any vomiting. 7. Report any pain in the calves, shortness of breath, or rapid heartbeat. 8. Follow-up in the office as directed. 9. If you were prescribed antibiotics, do not stop them without talking to your provider. Referrals: Adriana Barrios CNP [Primary Care Provider] - Mariama Gonzales CNP [Advanced Practice Nurse] - 05/19/17 2:30 pm
--- NOTE | 2017-05-17 14:49 | General Surgery Progress Note ---
Date of Encounter: 05/17/17 Time of Encounter: 14:47 - Assessment and Plan (1) Small bowel perforation Current Visit: Yes Status: Acute 51F POD #4 s/p ex lap, sbr; cont NG tube - likely will need volume replacements; will cont to follow cont TPN cont current pain regimen OOBTC cont abx regimen keep gay at present; likely d/c in AM Subjective Patient reports: no new complaints, still having pain, pain is less, no flatus, no bowel movement, afebrile Objective Vital Signs - Last 8 Hours Temp Pulse Resp BP Pulse Ox 05/17/17 11:29 97.5 F L 94 22 128/80 95 05/17/17 10:53 20 95 05/17/17 07:30 99.2 F 94 20 120/74 95 Intake and Output 05/16/17 05/17/17 05/17/17 23:59 07:59 15:59 Intake Total 2430 / 2430 570 / 570 620 / 620 Output Total 775 / 775 650 / 650 350 / 350 Balance 1655 / 1655 -80 / -80 270 / 270 Intake: IV Fluids 2430 / 2430 570 / 570 620 / 620 Clinimix E 5%-15% SOLUTION 2, 2210 / 2210 000 ML Travasol 10% 200 ML @ 91 .6 mls/hr IVC .Q24H [facility] with M. v.i. Adult 10 ml Rx#:[id number] Maxipime 2,000 MG In Water for 20 / 20 20 / 20 20 / 20 inj. (sterile) 20 ML @ 300 mls/ hr IVP Q8HR [facility] Rx#:[id number] Ofirmev 1,000 mg/100 ml 1,000 100 / 100 200 / 200 100 / 100 mg In 100 ml @ 400 mls/hr IVPB Q6HR [facility] Rx#:[id number] Intralipid 20% 250 ML @ 21 mls/ 250 / 250 hr IVPB DAILY@1700 [facility] Rx#: [id number] Flagyl Premix 500 MG/100 ML 500 100 / 100 100 / 100 100 / 100 mg In 100 ml @ 100 mls/hr IVPB Q8HR [facility] Rx#:[id number] Potassium Chloride 10 mEq/100mL 400 / 400 10 meq In 100 ml @ 100 mls/hr IVPB Q1H [facility] Rx#:[id number] Oral 0 / 0 0 / 0 0 / 0 Output: Catheter 775 / 775 650 / 650 350 / 350 Gastric Drainage 0 / 0 Other: Meal NPO Breakfast Weight 140.341 kg Blood Glucose* 95 124 118 Patient Weight 05/17/17 23:59 Weight 140.341 kg - General physical appearance no distress - ENT normocephalic - Neck Neck exam: no lymphadectomy - Respiratory normal expansion, normal respiratory effort - Cardiovascular Cardiovascular exam: Present: RRR - Abdomen Abdomen: Present: soft, tender (appropriately tender along incision) - Incision Incision: Present: clean and dry, intact - Integumentary no rash - Neurologic CN 2-12 grossly intact - Psychiatric oriented to time, oriented to person, oriented to place - Labs 05/17/17 04:05 05/17/17 04:05 Diabetes panel 05/17/17 Range/Units 04:05 Sodium 139 (136-145) mEq/L Potassium 3.2 L (3.5-5.1) mEq/L Chloride 101 (98-107) mEq/L Carbon Dioxide 29 (23-29) mEq/L BUN 26 H (6-20) mg/dL Creatinine 0.46 L (0.60-1.20) mg/dL Glucose 89 (70-105) mg/dL Calcium 8.3 L (8.6-10.3) mg/dL Calcium panel 05/17/17 05/17/17 Range/Units 04:05 04:05 Calcium 8.3 L (8.6-10.3) mg/dL Phosphorus 4.0 (2.7-4.5) mg/dL Pituitary panel 05/17/17 Range/Units 04:05 Sodium 139 (136-145) mEq/L Potassium 3.2 L (3.5-5.1) mEq/L Chloride 101 (98-107) mEq/L Carbon Dioxide 29 (23-29) mEq/L BUN 26 H (6-20) mg/dL Creatinine 0.46 L (0.60-1.20) mg/dL Glucose 89 (70-105) mg/dL Calcium 8.3 L (8.6-10.3) mg/dL Adrenal panel 05/17/17 Range/Units 04:05 Sodium 139 (136-145) mEq/L Potassium 3.2 L (3.5-5.1) mEq/L Chloride 101 (98-107) mEq/L Carbon Dioxide 29 (23-29) mEq/L BUN 26 H (6-20) mg/dL Creatinine 0.46 L (0.60-1.20) mg/dL Glucose 89 (70-105) mg/dL Calcium 8.3 L (8.6-10.3) mg/dL - VTE Reasons for not Prescribing Prophylaxis: Treatment not Indicated - Low risk for VTE Documentation of Mechanical Device: Intermittent pneumatic compression device Consult Discharge Plan - Plan Instructions: Laparoscopic Cholecystectomy (DC) Additional Instructions: General Surgical Discharge Instructions 1. No pushing, pulling, or lifting greater than 15 lbs for 2-4 weeks (depending upon procedure). 2. You may shower beginning today, but no tub baths, soaking, or swimming for 2 weeks. 3. You may resume driving when you are off narcotics and are safe to react in a car. 4. Take ibuprofen every 8 hours for discomfort. If this does not relieve discomfort, you may take the as needed Percocet. Take narcotics as directed. Do not take more narcotics then directed and do not share your narcotics with any other person. Do not drink alcohol while on narcotics. 5. Take stool softeners (Colace) or a water based laxative (Miralax) while taking narcotics. You may hold for loose stools. 6. Report any fevers greater than 100.5F, increase abdominal discomfort, drainage that looks like pus, increased redness or pain at the surgical site, or any vomiting. 7. Report any pain in the calves, shortness of breath, or rapid heartbeat. 8. Follow-up in the office as directed. 9. If you were prescribed antibiotics, do not stop them without talking to your provider. Referrals: Adriana Barrios CNP [Primary Care Provider] - Mariama Gonzales CNP [Advanced Practice Nurse] - 05/19/17 2:30 pm
[2017-05-17] MEDS: Clinimix E 5%-15% SOLUTION 2,000 ML, Parenteral Amino Acid 10% 200 ML with MVI, adult ... IVC SCH ×2 (17:24→20:43)
[2017-05-18] MEDS: Insulin LISPRO 300 UNITS/3 ML VIAL SQ SCH ×6 (00:27→22:18)
[2017-05-18] MEDS: Ipratropium/Albuterol Neb 3 ML IH SCH ×4 (03:21→21:49)
[2017-05-18] MEDS: Ketorolac 15 MG/ML VIAL IVP SCH ×2 (03:53→11:53)
[2017-05-18 04:34] LABS: Hematocrit 31.7 % (35.3-44.9); Mean Corpuscular HGB Conc 31.5 g/dL (31.6-35.5); Mean Corpuscular Hemoglobin 25.7 pg (28.0-33.3); Mean Corpuscular Volume 81.5 fL (83.0-100.0); Mean Platelet Volume 9.6 fL (9.4-12.4); Platelet Count 515 K/mcL (140-400); Red Blood Count 3.89 M/mcL (3.82-4.97); Red Cell Distribution Width 17.4 % (11.5-14.5)
[2017-05-18 04:57] LABS: Basophils # 0.4 K/mcL (0.0-0.2); Eosinophils # 0.4 K/mcL (0.0-0.6); Monocytes # 3.3 K/mcL (0.0-1.3); Neutrophils # 11.5 K/mcL (1.6-8.9); Platelet Estimate Increased (Normal)
[2017-05-18 05:16] LABS: BUN/Creatinine Ratio 51 (6-26); Blood Urea Nitrogen 25 mg/dL (6-20); Calcium 8.5 mg/dL (8.6-10.3); Carbon Dioxide 29 mEq/L (23-29); Chloride 104 mEq/L (98-107); Glucose 91 mg/dL (70-105); Magnesium 2.5 mg/dL (1.6-2.6); Osmolality,Calculated 292 (280-300); Phosphorous 3.3 mg/dL (2.7-4.5); Potassium 3.6 mEq/L (3.5-5.1); Sodium 139 mEq/L (136-145); eGFR For African Americans > 60 (> 60); eGFR For Non-African Americans > 60 (> 60)
[2017-05-18] MEDS: *HR* Heparin 5,000 UNIT/ML VIAL SQ SCH ×2 (06:09→17:50)
[2017-05-18] MEDS: Acetaminophen IV 1,000 MG/100 ML INFUS..BTL IVPB SCH ×2 (06:09→11:54)
[2017-05-18] MEDS: Metoclopramide 10 MG/2 ML VIAL IVP SCH ×2 (06:10→12:13)
[2017-05-18] MEDS: Levothyroxine Sodium 100 MCG VIAL IVP SCH (06:10)
[2017-05-18] MEDS: Cefepime HCl 2,000 MG in Water for inj. (sterile) 20 ML 20 ML IVP SCH (08:26)
[2017-05-18] MEDS: MetroNIDAZOLE 500 MG/100 ML 500 MG/100 ML BAG IVPB SCH ×2 (08:26→17:49)
[2017-05-18] MEDS ORDERED: Acetaminophen IV 1,000 MG/100 ML INFUS..BTL IVPB PRN (12:19)
[2017-05-18] MEDS ORDERED: Ketorolac 15 MG/ML VIAL IVP PRN (12:19)
--- NOTE | 2017-05-18 12:49 | General Surgery Progress Note ---
Date of Encounter: 05/18/17 Time of Encounter: 12:47 - Assessment and Plan (1) Small bowel perforation Current Visit: Yes Status: Acute 51F POD #5 s/p ex lap, sbr; cont NG tube -clamp and check residuals for possible d/c NG tube cont TPN cont current pain regimen OOBTC cont abx regimen d/c gay Subjective Patient reports: no new complaints, feels better, still having pain, pain is less, flatus, bowel movement, afebrile Objective Vital Signs - Last 8 Hours Temp Pulse Resp BP Pulse Ox 05/18/17 11:06 20 98 05/18/17 11:00 98.5 F 97 18 149/89 95 05/18/17 07:53 98.5 F 97 22 147/83 97 Intake and Output 05/17/17 05/18/17 05/18/17 23:59 07:59 15:59 Intake Total 2550 / 2550 450 / 450 120 / 120 Output Total 400 / 400 925 / 925 0 / 0 Balance 2150 / 2150 -475 / -475 120 / 120 Intake: IV Fluids 2550 / 2550 450 / 450 120 / 120 Clinimix E 5%-15% SOLUTION 2, 2210 / 2210 000 ML Travasol 10% 200 ML @ 91 .6 mls/hr IVC .Q24H [facility] with M. v.i. Adult 10 ml Rx#:[id number] Maxipime 2,000 MG In Water for 40 / 40 20 / 20 inj. (sterile) 20 ML @ 300 mls/ hr IVP Q8HR [facility] Rx#:[id number] Ofirmev 1,000 mg/100 ml 1,000 200 / 200 100 / 100 mg In 100 ml @ 400 mls/hr IVPB Q6HR [facility] Rx#:[id number] Intralipid 20% 250 ML @ 21 mls/ 250 / 250 hr IVPB DAILY@1700 [facility] Rx#: [id number] Flagyl Premix 500 MG/100 ML 500 100 / 100 100 / 100 100 / 100 mg In 100 ml @ 100 mls/hr IVPB Q8HR [facility] Rx#:[id number] Oral 0 / 0 0 / 0 0 / 0 Output: Urine 0 / 0 Catheter 400 / 400 825 / 825 Gastric Drainage 100 / 100 0 / 0 Other: Meal NPO Breakfast NPO Stool Size Large Stool Consistency loose liquid Stool Characteristics Mucoid Stool Color Brown Green # Bowel Movements 1 Weight 147.099 kg Blood Glucose* 116 105 107 Patient Weight 05/18/17 23:59 Weight 147.099 kg - General physical appearance no distress - ENT normocephalic - Respiratory normal expansion, normal respiratory effort - Cardiovascular Cardiovascular exam: Present: RRR - Abdomen Abdomen: Present: soft, tender (appropriately tender) - Incision Incision: Present: clean and dry, intact - Neurologic CN 2-12 grossly intact - Psychiatric oriented to time, oriented to person, oriented to place - Labs 05/18/17 04:05 05/18/17 04:05 Diabetes panel 05/18/17 Range/Units 04:05 Sodium 139 (136-145) mEq/L Potassium 3.6 (3.5-5.1) mEq/L Chloride 104 (98-107) mEq/L Carbon Dioxide 29 (23-29) mEq/L BUN 25 H (6-20) mg/dL Creatinine 0.49 L (0.60-1.20) mg/dL Glucose 91 (70-105) mg/dL Calcium 8.5 L (8.6-10.3) mg/dL Calcium panel 05/18/17 05/18/17 Range/Units 04:05 04:05 Calcium 8.5 L (8.6-10.3) mg/dL Phosphorus 3.3 (2.7-4.5) mg/dL Pituitary panel 05/18/17 Range/Units 04:05 Sodium 139 (136-145) mEq/L Potassium 3.6 (3.5-5.1) mEq/L Chloride 104 (98-107) mEq/L Carbon Dioxide 29 (23-29) mEq/L BUN 25 H (6-20) mg/dL Creatinine 0.49 L (0.60-1.20) mg/dL Glucose 91 (70-105) mg/dL Calcium 8.5 L (8.6-10.3) mg/dL Adrenal panel 05/18/17 Range/Units 04:05 Sodium 139 (136-145) mEq/L Potassium 3.6 (3.5-5.1) mEq/L Chloride 104 (98-107) mEq/L Carbon Dioxide 29 (23-29) mEq/L BUN 25 H (6-20) mg/dL Creatinine 0.49 L (0.60-1.20) mg/dL Glucose 91 (70-105) mg/dL Calcium 8.5 L (8.6-10.3) mg/dL - VTE Reasons for not Prescribing Prophylaxis: Treatment not Indicated - Low risk for VTE Documentation of Mechanical Device: Intermittent pneumatic compression device Consult Discharge Plan - Plan Instructions: Laparoscopic Cholecystectomy (DC) Additional Instructions: General Surgical Discharge Instructions 1. No pushing, pulling, or lifting greater than 15 lbs for 2-4 weeks (depending upon procedure). 2. You may shower beginning today, but no tub baths, soaking, or swimming for 2 weeks. 3. You may resume driving when you are off narcotics and are safe to react in a car. 4. Take ibuprofen every 8 hours for discomfort. If this does not relieve discomfort, you may take the as needed Percocet. Take narcotics as directed. Do not take more narcotics then directed and do not share your narcotics with any other person. Do not drink alcohol while on narcotics. 5. Take stool softeners (Colace) or a water based laxative (Miralax) while taking narcotics. You may hold for loose stools. 6. Report any fevers greater than 100.5F, increase abdominal discomfort, drainage that looks like pus, increased redness or pain at the surgical site, or any vomiting. 7. Report any pain in the calves, shortness of breath, or rapid heartbeat. 8. Follow-up in the office as directed. 9. If you were prescribed antibiotics, do not stop them without talking to your provider. Referrals: Adriana Barrios CNP [Primary Care Provider] - Mariama Gonzales CNP [Advanced Practice Nurse] - 05/19/17 2:30 pm
[2017-05-18] MEDS ORDERED: Acetaminophen 325 MG TABLET PO PRN (15:12)
[2017-05-18] MEDS ORDERED: Ibuprofen 600 MG TABLET PO PRN (15:13)
--- NOTE | 2017-05-18 15:56 | Internal Med Progress Note ---
Date of Encounter: 05/18/17 Time of Encounter: 15:48 - Assessment and plan (1) Acute respiratory failure with hypoxia Current Visit: Yes Status: Acute Assessment and plan: Secondary to HCAP fluid overload. Pneumonia as well based on chest x-ray, has small bowel perforation but course seems more consistent with HCAP. She should be emperically treated for both. Patient needs I.S. and reluctant to get up and move much. I recommend diuresis as tolerated Patient responding appropriately to antibiotics, will de escalate. (2) Sepsis Current Visit: Yes Status: Acute Assessment and plan: Patient with 2 SIRS criteria with leukocytosis, HR >90 -Bacterial as initial procalcitonin of 0.51 (05/12/17). Responding to antibiotics, procalcitonin 0.09 -Suspected source is pneumonia vs bowel perforation. -Continue Cefepime and Vancomycin. Resume Flagyl to cover intraabdominal sources. Has allergy to penicillins. -Azithromycin course completed. Continue flagyl, Add Levaquin. discontinue vanc and cefepime. Qualifiers: Sepsis type: sepsis due to unspecified organism Qualified Code(s): A41.9 - Sepsis, unspecified organism (3) Fluid overload, unspecified Current Visit: Yes Status: Acute Assessment and plan: Diuresis as tolerated with IV Lasix Qualifiers: Hypervolemia type: unspecified Qualified Code(s): E87.70 - Fluid overload, unspecified (4) Small bowel perforation Current Visit: Yes Status: Acute Assessment and plan: Managed per Surgery. Patient likely going to OR today. (5) Chest pain Current Visit: Yes Status: Resolved Qualifiers: Chest pain type: chest pain on breathing Qualified Code(s): R07.1 - Chest pain on breathing; R07.81 - Pleurodynia (6) Acute cholecystitis Current Visit: Yes Status: Acute Assessment and plan: Status post cholecystectomy (7) Hypertension Current Visit: Yes Status: Chronic Assessment and plan: Blood pressure medications should be held for SBP <100. Currently hypotensive Qualifiers: Hypertension type: unspecified Qualified Code(s): I10 - Essential (primary ) hypertension (8) Hypothyroidism Current Visit: Yes Status: Chronic Qualifiers: Hypothyroidism type: postablative Qualified Code(s): E89.0 - Postprocedural hypothyroidism (9) Morbid obesity with BMI of 40.0-44.9, adult Current Visit: Yes Status: Acute (10) DVT prophylaxis Current Visit: Yes Status: Acute Assessment and plan: Heparin 5,000 sq BID - Subjective Interval history: Not having much improving in respiratory status - Constitutional Vitals: Temp Pulse Resp BP Pulse Ox 98.7 F 102 20 126/73 94 05/18/17 14:54 05/18/17 14:54 05/18/17 15:31 05/18/17 14:54 05/18/17 15:31 General appearance: Present: A&O X 3, obese, answers questions appropriately Internal Medicine: Result - Labs CBC & Chem 7: 05/18/17 04:05 05/18/17 04:05 Labs: Short CBC 05/18/17 Range/Units 04:05 WBC 18.5 H (4.3-11.1) K/mcL Hgb 10.0 L (11.5-15.4) g/dL Hct 31.7 L (35.3-44.9) % Plt Count 515 H (140-400) K/mcL Neutrophils # 11.5 H (1.6-8.9) K/mcL BMP 05/18/17 04:05 Sodium 139 Potassium 3.6 Chloride 104 Carbon Dioxide 29 BUN 25 H Creatinine 0.49 L Glucose 91 Calcium 8.5 L - ABG Interpretation ABG results: ABG ABG pH 7.51 pH Units (7.32-7.45) H 05/12/17 16:40 ABG pCO2 37 mmHg (35-45) 05/12/17 16:40 ABG pO2 72 mmHg (85-104) L 05/12/17 16:40 ABG O2 Saturation 96 % (95-98) 05/12/17 16:40 PT/INR, D-dimer PT 13.5 Seconds (9.4-12.1) H 05/05/17 06:18 - VTE Reasons for not Prescribing Prophylaxis: Treatment not Indicated - Low risk for VTE Documentation of Mechanical Device: Intermittent pneumatic compression device Consult Discharge Plan - Plan Instructions: Laparoscopic Cholecystectomy (DC) Additional Instructions: General Surgical Discharge Instructions 1. No pushing, pulling, or lifting greater than 15 lbs for 2-4 weeks (depending upon procedure). 2. You may shower beginning today, but no tub baths, soaking, or swimming for 2 weeks. 3. You may resume driving when you are off narcotics and are safe to react in a car. 4. Take ibuprofen every 8 hours for discomfort. If this does not relieve discomfort, you may take the as needed Percocet. Take narcotics as directed. Do not take more narcotics then directed and do not share your narcotics with any other person. Do not drink alcohol while on narcotics. 5. Take stool softeners (Colace) or a water based laxative (Miralax) while taking narcotics. You may hold for loose stools. 6. Report any fevers greater than 100.5F, increase abdominal discomfort, drainage that looks like pus, increased redness or pain at the surgical site, or any vomiting. 7. Report any pain in the calves, shortness of breath, or rapid heartbeat. 8. Follow-up in the office as directed. 9. If you were prescribed antibiotics, do not stop them without talking to your provider. Referrals: Adriana Barrios CNP [Primary Care Provider] - Mariama Gonzales CNP [Advanced Practice Nurse] - 05/19/17 2:30 pm
[2017-05-18] MEDS ORDERED: Clinimix E 5%-15% SOLUTION 2,000 ML, Parenteral Amino Acid 10% 200 ML with MVI, adult ... IVC SCH (17:00)
[2017-05-18] MEDS: Clinimix E 5%-15% SOLUTION 2,000 ML, Parenteral Amino Acid 10% 200 ML with MVI, adult ... IVC SCH (19:17)
[2017-05-19] MEDS: MetroNIDAZOLE 500 MG/100 ML 500 MG/100 ML BAG IVPB SCH ×3 (00:51→22:01)
[2017-05-19] MEDS: Insulin LISPRO 300 UNITS/3 ML VIAL SQ SCH ×6 (00:55→22:06)
[2017-05-19] MEDS: Ipratropium/Albuterol Neb 3 ML IH SCH ×4 (03:46→20:51)
[2017-05-19 05:22] LABS: Eosinophils # 0.7 K/mcL (0.0-0.6); Hematocrit 31.6 % (35.3-44.9); Hemoglobin 9.9 g/dL (11.5-15.4); Mean Corpuscular HGB Conc 31.3 g/dL (31.6-35.5); Mean Corpuscular Hemoglobin 25.4 pg (28.0-33.3); Mean Corpuscular Volume 81.2 fL (83.0-100.0); Mean Platelet Volume 9.9 fL (9.4-12.4); Neutrophils # 11.9 K/mcL (1.6-8.9); Platelet Count 591 K/mcL (140-400); Red Blood Count 3.89 M/mcL (3.82-4.97); Red Cell Distribution Width 17.9 % (11.5-14.5)
[2017-05-19] MEDS: Levothyroxine Sodium 100 MCG VIAL IVP SCH (05:33)
[2017-05-19] MEDS: *HR* Heparin 5,000 UNIT/ML VIAL SQ SCH ×2 (05:33→22:02)
[2017-05-19 05:35] LABS: BUN/Creatinine Ratio 42 (6-26); Blood Urea Nitrogen 19 mg/dL (6-20); Calcium 8.4 mg/dL (8.6-10.3); Carbon Dioxide 26 mEq/L (23-29); Chloride 105 mEq/L (98-107); Glucose 101 mg/dL (70-105); Osmolality,Calculated 288 (280-300); Potassium 3.6 mEq/L (3.5-5.1); Sodium 138 mEq/L (136-145); eGFR For African Americans > 60 (> 60); eGFR For Non-African Americans > 60 (> 60)
[2017-05-19 06:31] LABS: Lymphocytes # 3.2 K/mcL (0.6-4.6); Monocytes # 1.8 K/mcL (0.0-1.3); Platelet Estimate Increased (Normal); Reactive Lymphocytes Present (Not Present)
[2017-05-19] MEDS ORDERED: Aminoglycoside Consult 1 EACH MC ONE (07:33)
[2017-05-19] MEDS: Levofloxacin 750 MG/150 ML 750 MG/150 ML BAG IVPB SCH (08:27)
--- NOTE | 2017-05-19 08:29 | General Surgery Progress Note ---
<Rebekah Rae - Last Filed: 05/19/17 08:22> Date of Encounter: 05/19/17 Time of Encounter: 08:22 - Assessment and Plan (1) Acute cholecystitis Current Visit: Yes Status: Acute POD # 13 s/p lap shania 05/05/2017, POD #1 s/p #6 resection of 10 cm of small bowel with primary anastomoses #2 drainage of multiple interloop abscesses #3 lysis of adhesion performed on 05/13/2017 for a pre-op diagnosis of a small bowel perforation. 05/19/2017: Patient resting comfortably this morning. States her postoperative pain is controlled. Patient tolerating sips of clear liquid diet after discontinuation of NG tube yesterday. -We will advance diet to clear liquid diet today, no carbonation. Add CLD dietary supplement. -Wean TPN to off. -WBC trending down, 18.5 yesterday, 18 today. -Recommend discontinuation of antibiotics. -We will continue to follow the patient. (2) Postoperative urinary retention Current Visit: Yes Status: Resolved Navarro Catheter removed yesterday. Patient tolerating well. Subjective Patient reports: no new complaints, feels better, pain is less, tolerating liquids well, voiding w/o difficulty, flatus, bowel movement, shortness of breath, afebrile Objective Vital Signs - Last 8 Hours Temp Pulse Resp BP Pulse Ox 05/19/17 04:13 99.2 F 104 20 146/74 94 Intake and Output 05/18/17 05/19/17 05/19/17 23:59 07:59 15:59 Intake Total 2310 / 2310 370 / 370 Output Total 450 / 450 325 / 325 Balance 1860 / 1860 45 / 45 Intake: IV Fluids 2310 / 2310 350 / 350 Clinimix E 5%-15% SOLUTION 2, 2210 / 2210 000 ML Travasol 10% 200 ML @ 91 .6 mls/hr IVC .Q24H [facility] with M. v.i. Adult 10 ml Rx#:[id number] Intralipid 20% 250 ML @ 21 mls/ 250 / 250 hr IVPB DAILY@1700 [facility] Rx#: [id number] Flagyl Premix 500 MG/100 ML 500 100 / 100 100 / 100 mg In 100 ml @ 100 mls/hr IVPB Q8HR [facility] Rx#:[id number] Oral 0 / 0 Output: Urine 450 / 450 325 / 325 Other: Stool Size Small Stool Consistency loose Stool Color Brown # Bowel Movement Diapers 2 Blood Glucose* 101 120 - General physical appearance well developed, well nourished, no distress - ENT no congestion - Respiratory normal expansion, normal respiratory effort, clear to percussion, clear to auscultation - Cardiovascular Cardiovascular exam: Present: RRR, no murmurs/rubs/gallops - Abdomen Abdomen: Present: bowel sounds present, soft, non tender Hernia: none - Incision Incision: Present: clean and dry, intact - Neurologic CN 2-12 grossly intact, normal coordination, normal sensation - Psychiatric oriented to time, oriented to person, oriented to place, speech is normal, memory intact - Labs 05/19/17 04:25 05/19/17 04:25 Diabetes panel 05/19/17 Range/Units 04:25 Sodium 138 (136-145) mEq/L Potassium 3.6 (3.5-5.1) mEq/L Chloride 105 (98-107) mEq/L Carbon Dioxide 26 (23-29) mEq/L BUN 19 (6-20) mg/dL Creatinine 0.45 L (0.60-1.20) mg/dL Glucose 101 (70-105) mg/dL Calcium 8.4 L (8.6-10.3) mg/dL Calcium panel 05/19/17 Range/Units 04:25 Calcium 8.4 L (8.6-10.3) mg/dL Pituitary panel 05/19/17 Range/Units 04:25 Sodium 138 (136-145) mEq/L Potassium 3.6 (3.5-5.1) mEq/L Chloride 105 (98-107) mEq/L Carbon Dioxide 26 (23-29) mEq/L BUN 19 (6-20) mg/dL Creatinine 0.45 L (0.60-1.20) mg/dL Glucose 101 (70-105) mg/dL Calcium 8.4 L (8.6-10.3) mg/dL Adrenal panel 05/19/17 Range/Units 04:25 Sodium 138 (136-145) mEq/L Potassium 3.6 (3.5-5.1) mEq/L Chloride 105 (98-107) mEq/L Carbon Dioxide 26 (23-29) mEq/L BUN 19 (6-20) mg/dL Creatinine 0.45 L (0.60-1.20) mg/dL Glucose 101 (70-105) mg/dL Calcium 8.4 L (8.6-10.3) mg/dL - VTE Reasons for not Prescribing Prophylaxis: Treatment not Indicated - Low risk for VTE Documentation of Mechanical Device: Intermittent pneumatic compression device Consult Discharge Plan - Plan Instructions: Laparoscopic Cholecystectomy (DC) Additional Instructions: General Surgical Discharge Instructions 1. No pushing, pulling, or lifting greater than 15 lbs for 2-4 weeks (depending upon procedure). 2. You may shower beginning today, but no tub baths, soaking, or swimming for 2 weeks. 3. You may resume driving when you are off narcotics and are safe to react in a car. 4. Take ibuprofen every 8 hours for discomfort. If this does not relieve discomfort, you may take the as needed Percocet. Take narcotics as directed. Do not take more narcotics then directed and do not share your narcotics with any other person. Do not drink alcohol while on narcotics. 5. Take stool softeners (Colace) or a water based laxative (Miralax) while taking narcotics. You may hold for loose stools. 6. Report any fevers greater than 100.5F, increase abdominal discomfort, drainage that looks like pus, increased redness or pain at the surgical site, or any vomiting. 7. Report any pain in the calves, shortness of breath, or rapid heartbeat. 8. Follow-up in the office as directed. 9. If you were prescribed antibiotics, do not stop them without talking to your provider. Referrals: Adriana Barrios CNP [Primary Care Provider] - Mariama Gonzales CNP [Advanced Practice Nurse] - 05/19/17 2:30 pm <Ignacio Campos - Last Filed: 05/19/17 10:34> Date of Encounter: 05/19/17 Objective Vital Signs - Last 8 Hours Temp Pulse Resp BP Pulse Ox 05/19/17 04:13 99.2 F 104 20 146/74 94 Intake and Output 05/18/17 05/19/17 05/19/17 23:59 07:59 15:59 Intake Total 2310 / 2310 370 / 370 Output Total 450 / 450 325 / 325 400 / 400 Balance 1859 / 1859 45 / 45 -400 / -400 Intake: IV Fluids 0 / 0 350 / 350 Clinimix E 5%-15% SOLUTION 2, 2209 / 2209 000 ML Travasol 10% 200 ML @ 91 .6 mls/hr IVC .Q24H [facility] with M. v.i. Adult 10 ml Rx#:[id number] Intralipid 20% 250 ML @ 21 mls/ 250 / 250 hr IVPB DAILY@1700 [facility] Rx#: [id number] Flagyl Premix 500 MG/100 ML 500 100 / 100 100 / 100 mg In 100 ml @ 100 mls/hr IVPB Q8HR [facility] Rx#:[id number] Oral 0 / 0 20 / 20 Output: Urine 450 / 450 325 / 325 400 / 400 Other: Stool Size Small Small Stool Consistency loose liquid Stool Characteristics Mucoid Stool Color Brown Brown Green # Voids 2 # Bowel Movement Diapers 2 Blood Glucose* 101 120 - Labs 05/19/17 04:25 05/19/17 04:25 Diabetes panel 05/19/17 Range/Units 04:25 Sodium 138 (136-145) mEq/L Potassium 3.6 (3.5-5.1) mEq/L Chloride 105 (98-107) mEq/L Carbon Dioxide 26 (23-29) mEq/L BUN 19 (6-20) mg/dL Creatinine 0.45 L (0.60-1.20) mg/dL Glucose 101 (70-105) mg/dL Calcium 8.4 L (8.6-10.3) mg/dL Calcium panel 05/19/17 Range/Units 04:25 Calcium 8.4 L (8.6-10.3) mg/dL Pituitary panel 05/19/17 Range/Units 04:25 Sodium 138 (136-145) mEq/L Potassium 3.6 (3.5-5.1) mEq/L Chloride 105 (98-107) mEq/L Carbon Dioxide 26 (23-29) mEq/L BUN 19 (6-20) mg/dL Creatinine 0.45 L (0.60-1.20) mg/dL Glucose 101 (70-105) mg/dL Calcium 8.4 L (8.6-10.3) mg/dL Adrenal panel 02/19/18 Range/Units 04:25 Sodium 138 (136-145) mEq/L Potassium 3.6 (3.5-5.1) mEq/L Chloride 105 (98-107) mEq/L Carbon Dioxide 26 (23-29) mEq/L BUN 19 (6-20) mg/dL Creatinine 0.45 L (0.60-1.20) mg/dL Glucose 101 (70-105) mg/dL Calcium 8.4 L (8.6-10.3) mg/dL - Attending Attestation I examined this patient and my medical decision-making was reviewed with the Resident Physician. I agree with the documented findings, disposition and treatment plan as described except to the extent set forth below. The patient is seen and evaluated on morning rounds with the resident. She is having normal bowel function. We will advance her diet today. I think it is reasonable to stop her antibiotics at this point. Plan on discharge tomorrow morning. Advance diet. Ignacio Campos MD FACS
[2017-05-20] MEDS: MetroNIDAZOLE 500 MG/100 ML 500 MG/100 ML BAG IVPB SCH
[2017-05-20] MEDS: Insulin LISPRO 300 UNITS/3 ML VIAL SQ SCH ×4 (00:12→12:35)
--- NOTE | 2017-05-20 01:07 | Internal Med Progress Note ---
Date of Encounter: 05/19/17 Time of Encounter: 14:04 - Assessment and plan (1) Acute respiratory failure with hypoxia Current Visit: Yes Status: Acute Assessment and plan: Secondary to HCAP, fluid overload, worsened with likely obesity hypoventilation syndrome. Pneumonia as well based on chest x-ray, has small bowel perforation but course seems more consistent with HCAP. She should be emperically treated for both. 3 more days antibiotic therapy - Requests bipap qualification test tonight (2) Sepsis Current Visit: Yes Status: Acute Assessment and plan: Patient with 2 SIRS criteria with leukocytosis, HR >90 -Bacterial as initial procalcitonin of 0.51 (05/12/17), improved to 0.09, increased to 0.22. Clinically better -Suspected source is pneumonia vs bowel perforation. -Azithromycin course completed. Leukocytosis possibly reactive instead of infection related given clinical response Continue Flagyl, Levaquin, complete 3 more days to complete course Qualifiers: Sepsis type: sepsis due to unspecified organism Qualified Code(s): A41.9 - Sepsis, unspecified organism (3) Fluid overload, unspecified Current Visit: Yes Status: Acute Assessment and plan: Diuresis as tolerated with IV Lasix Qualifiers: Hypervolemia type: unspecified Qualified Code(s): E87.70 - Fluid overload, unspecified (4) Small bowel perforation Current Visit: Yes Status: Acute Assessment and plan: Managed per Surgery. Patient likely going to OR today. (5) Chest pain Current Visit: Yes Status: Resolved Qualifiers: Chest pain type: chest pain on breathing Qualified Code(s): R07.1 - Chest pain on breathing; R07.81 - Pleurodynia (6) Acute cholecystitis Current Visit: Yes Status: Acute Assessment and plan: Status post cholecystectomy (7) Hypertension Current Visit: Yes Status: Chronic Assessment and plan: Blood pressure medications should be held for SBP <100. Currently hypotensive Qualifiers: Hypertension type: unspecified Qualified Code(s): I10 - Essential (primary ) hypertension (8) Hypothyroidism Current Visit: Yes Status: Chronic Qualifiers: Hypothyroidism type: postablative Qualified Code(s): E89.0 - Postprocedural hypothyroidism (9) Morbid obesity with BMI of 40.0-44.9, adult Current Visit: Yes Status: Acute (10) DVT prophylaxis Current Visit: Yes Status: Acute Assessment and plan: Heparin 5,000 sq BID - Subjective Interval history: Patient feels well, denies cp, sob, n/v, fevers/chills. - Constitutional Vitals: Temp Pulse Resp BP Pulse Ox 98.9 F 98 14 107/66 98 05/20/17 00:24 05/20/17 00:24 05/20/17 00:24 05/20/17 00:24 05/20/17 00:24 General appearance: Present: A&O X 3, obese, answers questions appropriately Exam: CVS: RRR Lungs: CTAB Ext: trace bipedal edema Internal Medicine: Result - Labs CBC & Chem 7: 05/19/17 04:25 05/19/17 04:25 Labs: Short CBC 05/19/17 Range/Units 04:25 WBC 18.0 H (4.3-11.1) K/mcL Hgb 9.9 L (11.5-15.4) g/dL Hct 31.6 L (35.3-44.9) % Plt Count 591 H (140-400) K/mcL Neutrophils # 11.9 H (1.6-8.9) K/mcL BMP 05/19/17 04:25 Sodium 138 Potassium 3.6 Chloride 105 Carbon Dioxide 26 BUN 19 Creatinine 0.45 L Glucose 101 Calcium 8.4 L - ABG Interpretation ABG results: ABG ABG pH 7.51 pH Units (7.32-7.45) H 05/12/17 16:40 ABG pCO2 37 mmHg (35-45) 05/12/17 16:40 ABG pO2 72 mmHg (85-104) L 05/12/17 16:40 ABG O2 Saturation 96 % (95-98) 05/12/17 16:40 PT/INR, D-dimer PT 13.5 Seconds (9.4-12.1) H 05/05/17 06:18 - VTE Reasons for not Prescribing Prophylaxis: Treatment not Indicated - Low risk for VTE Documentation of Mechanical Device: Intermittent pneumatic compression device Consult Discharge Plan - Plan Instructions: Laparoscopic Cholecystectomy (DC) Additional Instructions: General Surgical Discharge Instructions 1. No pushing, pulling, or lifting greater than 15 lbs for 2-4 weeks (depending upon procedure). 2. You may shower beginning today, but no tub baths, soaking, or swimming for 2 weeks. 3. You may resume driving when you are off narcotics and are safe to react in a car. 4. Take ibuprofen every 8 hours for discomfort. If this does not relieve discomfort, you may take the as needed Percocet. Take narcotics as directed. Do not take more narcotics then directed and do not share your narcotics with any other person. Do not drink alcohol while on narcotics. 5. Take stool softeners (Colace) or a water based laxative (Miralax) while taking narcotics. You may hold for loose stools. 6. Report any fevers greater than 100.5F, increase abdominal discomfort, drainage that looks like pus, increased redness or pain at the surgical site, or any vomiting. 7. Report any pain in the calves, shortness of breath, or rapid heartbeat. 8. Follow-up in the office as directed. 9. If you were prescribed antibiotics, do not stop them without talking to your provider. Referrals: Adriana Barrios CNP [Primary Care Provider] - Mariama Gonzales CNP [Advanced Practice Nurse] - 05/19/17 2:30 pm
[2017-05-20] MEDS: Ipratropium/Albuterol Neb 3 ML IH SCH ×2 (03:36→11:39)
[2017-05-20 05:26] LABS: Hematocrit 30.9 % (35.3-44.9); Hemoglobin 9.5 g/dL (11.5-15.4); Mean Corpuscular HGB Conc 30.7 g/dL (31.6-35.5); Mean Corpuscular Hemoglobin 25.5 pg (28.0-33.3); Mean Corpuscular Volume 82.8 fL (83.0-100.0); Mean Platelet Volume 9.8 fL (9.4-12.4); Monocytes # 1.8 K/mcL (0.0-1.3); Platelet Count 585 K/mcL (140-400); Red Blood Count 3.73 M/mcL (3.82-4.97); Red Cell Distribution Width 17.8 % (11.5-14.5)
[2017-05-20 05:55] LABS: Eosinophils # 0.9 K/mcL (0.0-0.6); Lymphocytes # 3.3 K/mcL (0.6-4.6); Neutrophils # 8.8 K/mcL (1.6-8.9); Platelet Estimate Increased (Normal)
[2017-05-20 06:31] LABS: BUN/Creatinine Ratio 33 (6-26); Blood Urea Nitrogen 16 mg/dL (6-20); Calcium 8.5 mg/dL (8.6-10.3); Carbon Dioxide 25 mEq/L (23-29); Chloride 107 mEq/L (98-107); Glucose 86 mg/dL (70-105); Osmolality,Calculated 288 (280-300); Sodium 139 mEq/L (136-145); eGFR For African Americans > 60 (> 60); eGFR For Non-African Americans > 60 (> 60)
[2017-05-20] MEDS: Levothyroxine Sodium 100 MCG VIAL IVP SCH (06:44)
[2017-05-20] MEDS: *HR* Heparin 5,000 UNIT/ML VIAL SQ SCH (06:44)
--- NOTE | 2017-05-20 08:18 | General Surgery Progress Note ---
Addendum entered and electronically signed by Rebekah Rae MD 05/20/17 10 :05: Advanced to soft diet. If tolerates, will discharge this afternoon. Original Note: <Rebekah Rae - Last Filed: 05/20/17 09:44> Date of Encounter: 05/20/17 Time of Encounter: 08:15 - Assessment and Plan (1) Acute cholecystitis Status: Acute POD # 14 s/p lap shania 05/05/2017, POD #1 s/p #7 resection of 10 cm of small bowel with primary anastomoses #2 drainage of multiple interloop abscesses #3 lysis of adhesion performed on 05/13/2017 for a pre-op diagnosis of a small bowel perforation. 05/20/2017: Patient resting comfortably this morning. States her postoperative pain is controlled. Patient tolerating CLD. -WBC trending down, 15 today down from 18 yesterday. -Will likely discharge home today if stable from medicine perspective. (3) Postoperative urinary retention Status: Resolved Resolved. Subjective Patient reports: no new complaints, feels better, pain is less, tolerating liquids well, voiding w/o difficulty, flatus, bowel movement, afebrile Objective Vital Signs - Last 8 Hours Temp Pulse Resp BP Pulse Ox 05/20/17 07:25 98.2 F 98 16 110/71 97 05/20/17 04:50 98.9 F 99 14 104/63 96 05/20/17 00:24 98.9 F 98 14 107/66 98 Intake and Output 05/19/17 05/20/17 05/20/17 23:59 07:59 15:59 Intake Total 0 / 0 0 / 0 Output Total 700 / 700 300 / 300 Balance -700 / -700 -300 / -300 Intake: Oral 0 / 0 0 / 0 Output: Urine 700 / 700 300 / 300 Other: Weight 146.873 kg Blood Glucose* 93 Patient Weight 05/20/17 23:59 Weight 146.873 kg - General physical appearance well developed, well nourished, no distress - ENT normal mucosa - Respiratory normal expansion, normal respiratory effort, clear to percussion, other ( diminshed breath sounds bilaterally) - Cardiovascular Cardiovascular exam: Present: tachycardia, regular rhythm, no murmurs/rubs/ gallops - Abdomen Abdomen: Present: bowel sounds present, soft, non tender Hernia: none - Incision Incision: Present: clean and dry, intact - Neurologic CN 2-12 grossly intact, normal coordination, normal sensation - Psychiatric oriented to time, oriented to person, oriented to place, speech is normal, memory intact - Labs 05/20/17 04:23 05/20/17 04:23 Diabetes panel 05/20/17 Range/Units 04:23 Sodium 139 (136-145) mEq/L Potassium 4.0 (3.5-5.1) mEq/L Chloride 107 (98-107) mEq/L Carbon Dioxide 25 (23-29) mEq/L BUN 16 (6-20) mg/dL Creatinine 0.48 L (0.60-1.20) mg/dL Glucose 86 (70-105) mg/dL Calcium 8.5 L (8.6-10.3) mg/dL Calcium panel 05/20/17 Range/Units 04:23 Calcium 8.5 L (8.6-10.3) mg/dL Pituitary panel 05/20/17 Range/Units 04:23 Sodium 139 (136-145) mEq/L Potassium 4.0 (3.5-5.1) mEq/L Chloride 107 (98-107) mEq/L Carbon Dioxide 25 (23-29) mEq/L BUN 16 (6-20) mg/dL Creatinine 0.48 L (0.60-1.20) mg/dL Glucose 86 (70-105) mg/dL Calcium 8.5 L (8.6-10.3) mg/dL Adrenal panel 05/20/17 Range/Units 04:23 Sodium 139 (136-145) mEq/L Potassium 4.0 (3.5-5.1) mEq/L Chloride 107 (98-107) mEq/L Carbon Dioxide 25 (23-29) mEq/L BUN 16 (6-20) mg/dL Creatinine 0.48 L (0.60-1.20) mg/dL Glucose 86 (70-105) mg/dL Calcium 8.5 L (8.6-10.3) mg/dL - VTE Reasons for not Prescribing Prophylaxis: Treatment not Indicated - Low risk for VTE Documentation of Mechanical Device: Intermittent pneumatic compression device Consult Discharge Plan - Plan Instructions: Laparoscopic Cholecystectomy (DC) Additional Instructions: General Surgical Discharge Instructions 1. No pushing, pulling, or lifting greater than 15 lbs for 2-4 weeks (depending upon procedure). 2. You may shower beginning today, but no tub baths, soaking, or swimming for 2 weeks. 3. You may resume driving when you are off narcotics and are safe to react in a car. 4. Take ibuprofen every 8 hours for discomfort. If this does not relieve discomfort, you may take the as needed Percocet. Take narcotics as directed. Do not take more narcotics then directed and do not share your narcotics with any other person. Do not drink alcohol while on narcotics. 5. Take stool softeners (Colace) or a water based laxative (Miralax) while taking narcotics. You may hold for loose stools. 6. Report any fevers greater than 100.5F, increase abdominal discomfort, drainage that looks like pus, increased redness or pain at the surgical site, or any vomiting. 7. Report any pain in the calves, shortness of breath, or rapid heartbeat. 8. Follow-up in the office as directed. 9. If you were prescribed antibiotics, do not stop them without talking to your provider. No lifting greater than 15 pounds for 6 weeks post-operation. Referrals: Mariama Gonzales [employer]PER[employer] [Advanced Practice Nurse] - 06/02/17 2:00 pm Prescriptions: Levofloxacin [Levaquin] 750 mg PO DAILY 3 Days #3 tablet <Ignacio Campos - Last Filed: 05/20/17 16:44> Date of Encounter: 05/20/17 Objective Vital Signs - Last 8 Hours Temp Pulse Resp BP Pulse Ox 05/20/17 11:18 98.7 F 96 16 114/68 97 Intake and Output 05/20/17 05/20/17 05/20/17 07:59 15:59 23:59 Intake Total 0 / 0 Output Total 300 / 300 400 / 400 Balance -300 / -300 -400 / -400 Intake: Oral 0 / 0 Output: Urine 300 / 300 400 / 400 Other: Weight 146.873 kg Patient Weight 05/20/17 23:59 Weight 146.873 kg - Labs 05/20/17 04:23 05/20/17 04:23 Diabetes panel 05/20/17 Range/Units 04:23 Sodium 139 (136-145) mEq/L Potassium 4.0 (3.5-5.1) mEq/L Chloride 107 (98-107) mEq/L Carbon Dioxide 25 (23-29) mEq/L BUN 16 (6-20) mg/dL Creatinine 0.48 L (0.60-1.20) mg/dL Glucose 86 (70-105) mg/dL Calcium 8.5 L (8.6-10.3) mg/dL Calcium panel 05/20/17 Range/Units 04:23 Calcium 8.5 L (8.6-10.3) mg/dL Pituitary panel 05/20/17 Range/Units 04:23 Sodium 139 (136-145) mEq/L Potassium 4.0 (3.5-5.1) mEq/L Chloride 107 (98-107) mEq/L Carbon Dioxide 25 (23-29) mEq/L BUN 16 (6-20) mg/dL Creatinine 0.48 L (0.60-1.20) mg/dL Glucose 86 (70-105) mg/dL Calcium 8.5 L (8.6-10.3) mg/dL Adrenal panel 05/20/17 Range/Units 04:23 Sodium 139 (136-145) mEq/L Potassium 4.0 (3.5-5.1) mEq/L Chloride 107 (98-107) mEq/L Carbon Dioxide 25 (23-29) mEq/L BUN 16 (6-20) mg/dL Creatinine 0.48 L (0.60-1.20) mg/dL Glucose 86 (70-105) mg/dL Calcium 8.5 L (8.6-10.3) mg/dL - Attending Attestation I examined this patient and my medical decision-making was reviewed with the Resident Physician. I agree with the documented findings, disposition and treatment plan as described except to the extent set forth below. The patient was seen and evaluated with rest and on morning rounds. She is ready for discharge. I will see her back in the office in one week. Ignacio Campos MD FACS
[2017-05-20] MEDS ORDERED: hydroCHLOROthiazide 25 MG TABLET PO SCH (09:00)
[2017-05-20] MEDS: Levofloxacin 750 MG/150 ML 750 MG/150 ML BAG IVPB SCH (09:10)
--- NOTE | 2017-05-20 10:32 | Discharge Summary ---
<Rebekah Rae H - Last Filed: 05/20/17 11:16> Date of Encounter: 05/20/17 Time of Encounter: 10:27 - Discharge Diagnosis (1) Acute cholecystitis Priority: Primary Status: Acute (2) Small bowel perforation Priority: Secondary Status: Acute (3) Postoperative urinary retention Priority: Secondary Status: Resolved - Discharge Medications Prescriptions: Levofloxacin [Levaquin] 750 mg PO DAILY 3 Days #3 tablet Home Medications: Liothyronine Sodium [Cytomel] 2.5 mcg PO BID 05/05/17 [History] Omeprazole [PriLOSEC] 20 mg PO DAILY 05/05/17 [History] hydroCHLOROthiazide [Hydrochlorothiazide] 25 mg PO DAILY 05/05/17 [History] Docusate Sodium [Colace] 100 mg PO BID PRN #30 capsule 05/06/17 [Rx] Ibuprofen 800 mg PO Q8H #30 tablet 05/06/17 [Rx] OxyCODONE/APAP 5/325 [Percocet 5/325 MG] 1 each PO Q6HR PRN 7 Days #28 tablet [Rx] Levothyroxine [Synthroid] 125 mcg PO DAILY 05/15/17 [History] Levofloxacin [Levaquin] 750 mg PO DAILY 3 Days #3 tablet 05/20/17 [Rx] Allergies/Adverse Reactions: 3 Allergy/AdvReac Type Severity Reaction Status Date / Time Penicillins [PCN] AdvReac "FELT Verified 05/05/17 07:21 STRANGE" General Surgery Exam Initial Vital Signs Temp Pulse Resp BP Pulse Ox 98.4 F 86 18 133/88 92 05/04/17 11:44 05/04/17 11:44 05/04/17 11:44 05/04/17 11:44 05/04/17 11:44 - General physical appearance well developed, well nourished, no distress - Respiratory normal expansion, normal respiratory effort, clear to percussion, clear to auscultation - Cardiovascular Cardiovascular exam: Present: RRR, no murmurs/rubs/gallops - Abdomen Abdomen general surgery: Present: bowel sounds present, soft, non tender Hernia: Present: none - Incision Incision: Present: clean and dry, intact - Neurologic Present: CN 2-12 grossly intact - Psychiatric Psychiatric general surgery: Present: A&Ox3 Date of admission: 05/07/17 18:42 Primary care physician: Adriana Barrios, Consults: 05/08/17 13:24 Consult to Respiratory Therapy [CONS] Stat Reason for Consult: AccuPAP nebulizer treatments and aggressive pulmonary toileting; spoke with Екатерина Time Notified: 13:20 Call Completed: Yes 05/08/17 16:38 Consult to Invasive Line Access Team [CONS] Routine Reason for Consult: Limited vascular access Line Type: EPIV 05/09/17 15:43 Consult to Cardiology [CONS] Routine Comment: To [facility] Dr. Pratt Consulting Provider: Cardiology Aishwarya Reason for Consult: SOB, Q-waves on EKG (denies cardiovascular history), echo pending Time Notified: 15:44 Call Completed: Yes 05/10/17 21:39 Consult to Hospitalist [CONS] Stat Consulting Provider: Hospitalist Nayan Reason for Consult: chest pain/ SOB Call Completed: Yes 05/12/17 08:48 Consult to Physical Therapy [CONS] Stat Comment: Evaluate, develop and implement POC Reason for Consult: Mobiliization and DC planning 05/14/17 15:38 Consult to PICC team [Consult to Invasive Line Access Team] [CONS] Routine Reason for Consult: PICC line placement Line Type: PICC PICC line indications: Parental nutrition Time Notified: 15:40 Call Completed: Yes 05/14/17 15:40 consult to transitional kindergarten teacher [Consult to Nutrition] [CONS] Stat Comment: Total fluid rate 125ml/hour (MIV + TPN) Consulting Provider: NUTRITION Reason for Dietary Consult: TPN Start and Manage 05/14/17 17:18 Consult to Invasive Line Access Team [CONS] Routine Reason for Consult: Picc Line Insertion Line Type: PICC 05/16/17 10:10 Consult to Physical Therapy [CONS] Routine Comment: Evaluate, develop and implement POC Reason for Consult: mobilization Discharging clinician: Ignacio Campos Anticipated date of discharge: 05/20/17 - Patient Status Disposition: Home Health Service Condition: Good Functional capacity at discharge: independent ambulation Overall status at discharge: patient is progressing back to baseline - Discharge Instructions Instructions: Laparoscopic Cholecystectomy (DC) Follow Up With: Mariama Gonzales CLAIM ATTORNEY [Advanced Practice Nurse] - 06/02/17 2:00 pm Forms: Inpatient Work/School Release Additional Instructions: General Surgical Discharge Instructions 1. No pushing, pulling, or lifting greater than 15 lbs for 2-4 weeks (depending upon procedure). 2. You may shower beginning today, but no tub baths, soaking, or swimming for 2 weeks. 3. You may resume driving when you are off narcotics and are safe to react in a car. 4. Take ibuprofen every 8 hours for discomfort. If this does not relieve discomfort, you may take the as needed Percocet. Take narcotics as directed. Do not take more narcotics then directed and do not share your narcotics with any other person. Do not drink alcohol while on narcotics. 5. Take stool softeners (Colace) or a water based laxative (Miralax) while taking narcotics. You may hold for loose stools. 6. Report any fevers greater than 100.5F, increase abdominal discomfort, drainage that looks like pus, increased redness or pain at the surgical site, or any vomiting. 7. Report any pain in the calves, shortness of breath, or rapid heartbeat. 8. Follow-up in the office as directed. 9. If you were prescribed antibiotics, do not stop them without talking to your provider. No lifting greater than 15 pounds for 6 weeks post-operation. - Diet and Activity Activity: increase activity as tolerated Diet: advance to your usual diet - Hospital Course Hospital course: Ms. Nicole is a 51 year old female with past medical history of hypertension and thyroid cancer who presented to [facility] on 05/04/2017 with complaints of periumbilical abdominal pain. Patient was admitted for acute cholecystitis and underwent laparoscopic cholecystectomy on 05/05/2017. Patient remained in the hospital after surgery for sustained abdominal discomfort and acute urinary retention. There was suspicion for bowel leakage, and upper GI was obtained which was negative for any evidence of leak. Patient was treated for shortness of breath by medicine team which was consulted. Repeat abdominal pelvis CT scan did demonstrate a large amount of free intraperitoneal air greater than expected 2 days postoperatively. Cardiology was consulted for shortness of breath and chest discomfort. Troponin's were negative and ECG suggested against ACS. They recommended follow-up with [place] [facility] in the outpatient setting to further evaluate for coronary artery disease. Patient appeared volume overloaded and was started on trial IV Lasix. Diuresis was continued, and broad-spectrum antibiotic therapy including workup for hospital-acquired pneumonia were initiated. On postoperative day 7, CT of the abdomen and pelvis with oral contrast was ordered. This imaging did reveal evidence of small bowel perforation. The patient was subsequently taken to the OR for a second surgery with resection of 10 cm of small bowel with primary anastomoses, drainage of multiple interloop abscesses, and lysis of adhesions. Patient began to improve clinically as well as medically after her surgery. TPN was weaned and diet was advanced. Patient's abdominal pain alleviated. Her shortness of breath has improved significantly. Leukocytosis resolving. This morning, patient is resting comfortably, and comfortable with the plan for discharge. food and nutrition services assistant are involved for discharge planning. Patient's case was discussed with the hospitalist who is recommending 3 more days of antibiotic therapy with Levaquin to total 10 days antibiotic coverage for HCAP. Patient has follow-up scheduled on June 02 at 2 PM with Mariama Lao, clinical nurse practitioner. - Time Spent with Patient Total time spent providing and/or coordinating discharge services: Less than 30 minutes Labs on day of discharge: Labs from last 24 hours 05/20/17 05/20/17 05/19/17 04:23 04:23 16:48 WBC 15.1 H RBC 3.73 L Hgb 9.5 L Hct 30.9 L MCV 82.8 L MCH 25.5 L MCHC 30.7 L RDW 17.8 H Plt Count 585 H MPV 9.8 Seg Neutrophils % 58.0 Lymphocytes % 22.0 Monocytes % 12.0 Eosinophils % 6.0 Myelocytes % 2.0 H Neutrophils # 8.8 Lymphocytes # 3.3 Monocytes # 1.8 H Eosinophils # 0.9 H Platelet Estimate Increased H Sodium 139 Potassium 4.0 Chloride 107 Carbon Dioxide 25 BUN 16 Creatinine 0.48 L Est GFR ( Amer) > 60 Est GFR (Non-Af Amer) > 60 BUN/Creatinine Ratio 33 H Glucose 86 POC Glucose 93 H Calculated Osmolality 288 Calcium 8.5 L 05/19/17 05/19/17 11:37 04:11 WBC RBC Hgb Hct MCV MCH MCHC RDW Plt Count MPV Seg Neutrophils % Lymphocytes % Monocytes % Eosinophils % Myelocytes % Neutrophils # Lymphocytes # Monocytes # Eosinophils # Platelet Estimate Sodium Potassium Chloride Carbon Dioxide BUN Creatinine Est GFR ( Amer) Est GFR (Non-Af Amer) BUN/Creatinine Ratio Glucose POC Glucose 91 H 120 H Calculated Osmolality Calcium - Impressions ITS Impressions Gallbladder Ultrasound 05/04/17 14:03 IMPRESSION: Cholelithiasis without sonographic evidence of acute cholecystitis. D/ / 05/04/2017 16:53:26 Zeke Salgado MD / [email or web address] Interpreting Provider: Zeke Salgado MD Bile Acid Absorption NM 05/05/17 10:00 IMPRESSION: Nonvisualization of the gallbladder after morphine administration consistent with acute cholecystitis. D/ / Tremaine Juarez MD / Tremaine Juarez MD Interpreting Provider: Tremaine Juarez MD Cholangiogram,Operative 05/05/17 17:25 IMPRESSION: Normal intraoperative cholangiogram. D/ / Zeke Verdugo MD / Zeke Verdugo MD Interpreting Provider: Zeke Verdugo MD Chest X-Ray 05/07/17 12:21 IMPRESSION: New airspace disease in the left lung base which could represent atelectasis or infiltrate. Left effusion. Free air underneath the hemidiaphragm that is likely related to the patient's previous surgery. The findings were sent to the Radiology Results Communication Center at 12:58 pm on 05/07/2017to be communicated to a licensed caregiver. The findings were discussed with Mariama Gonzales CHP 05/07/2017 at 1:11 p.m. D/ / 05/07/2017 13:14:18 Sary Sandhu MD / magda Interpreting Provider: Sary Sandhu MD Chest CTA 05/07/17 13:14 IMPRESSION: 1. Large amount of free intraperitoneal air, greater than expected 2 days postop. Small quantity of ascites as well as mild infiltration of the mesenteric fat. The findings are worrisome for perforation. Although nonspecific, the largest quantity of focal gas is seen within the left upper quadrant raising the possibility of gastric or adjacent colonic perforation. 2. Small quantity of fluid in the gallbladder fossa, not unexpected 2 days postop. 3. No evidence of pulmonary embolic disease. 4. Small left pleural effusion. Bilateral lower lobe atelectasis, left greater than right. The findings were called to Mariama Gonzales on 05/07/2017 at 3:00 p.m. D/ /07/2017 15:14:59 Henrry Fox MD / alejandro Interpreting Provider: Henrry Fox MD Abdomen CT 05/07/17 13:17 IMPRESSION: 1. Large amount of free intraperitoneal air, greater than expected 2 days postop. Small quantity of ascites as well as mild infiltration of the mesenteric fat. The findings are worrisome for perforation. Although nonspecific, the largest quantity of focal gas is seen within the left upper quadrant raising the possibility of gastric or adjacent colonic perforation. 2. Small quantity of fluid in the gallbladder fossa, not unexpected 2 days postop. 3. No evidence of pulmonary embolic disease. 4. Small left pleural effusion. Bilateral lower lobe atelectasis, left greater than right. The findings were called to Mariama Gonzales on 05/07/2017 at 3:00 p.m. D/ /07/2017 15:14:59 Henrry Fox MD / alejandro Interpreting Provider: Henrry Fox MD Upper GI Series 05/08/17 13:17 IMPRESSION: 1. No acute abnormality involving the stomach, esophagus or duodenum. No evidence of leak. 2. Persistent subdiaphragmatic free air, as previously seen on recent CT. D/ / 05/08/2017 16:17:52 Henrry De Luna MD / [facility] Interpreting Provider: Henrry De Luna MD Chest X-Ray 05/08/17 14:04 IMPRESSION: Slight interval improvement of pneumoperitoneum under the left hemidiaphragm. Persistent right pneumoperitoneum. Small left pleural effusion with adjacent atelectasis. D/ / 05/08/2017 15:52:43 Shruti Pringle MD / earnold Interpreting Provider: Shruti Pringle MD Echocardiogram 05/09/17 09:00 Impressions: Technically sub-optimal due to body habitus. LVEF 60-65%. No segmental dysfunction. No significant valvular dysfunction. Left Ventricular Wall Motion: Rest Echo Findings All wall segments showed normal motion. Findings: Right Ventricle * Not well visualized Left Atrium * Not well visualized Aorta * Normally sized aortic root. ECG Findings * Normal sinus rhythm. Study Quality * Technically sub-optimal due to body habitus. Aortic Valve * Aortic valve not well visualized. * No aortic regurgitation. * No aortic stenosis. Mitral Valve * Mitral valve not well visualized. * No mitral stenosis. * No mitral regurgitation. Tricuspid Valve * No tricuspid stenosis. * Trace tricuspid regurgitation. * Tricuspid valve not well visualized. * Unable to estimate RVSP due to lack of TR jet. Pulmonic Valve * Pulmonic valve is not well visualized. * No pulmonic stenosis. * No pulmonic regurgitation. IVC * The IVC is not well evaluated. Interatrial Septum * Interatrial septum not well evaluated. Right Atrium * Right atrium is not well visualized. Pericardium * There is a trivial-small pericardial effusion present. Left Ventricle * LVEF 60-65%. * Mild left ventricular diastolic dysfunction. * No segmental dysfunction. Chest X-Ray 05/10/17 06:00 IMPRESSION: No substantial change in appearance of the chest. D/ / Claudette Bronson MD / Claudette Bronson MD Interpreting Provider: Claudette Bronson MD Chest X-Ray 05/10/17 20:52 IMPRESSION: Persistent low lung volumes with basilar opacities favored to reflect bronchovascular crowding and atelectasis. Mild decrease in pneumoperitoneum. D/ / Tutu De Leon / Tutu De Leon Interpreting Provider: Tutu De Leon Chest X-Ray 05/12/17 10:18 IMPRESSION: 1. Stable left basilar airspace disease. Continued radiographic follow-up recommended. 2. Pneumoperitoneum as on the previous chest radiograph which is a known finding. D/ / Filemon King MD / Filemon King MD Interpreting Provider: Filemon King MD Abdomen/Pelvis CT 05/13/17 11:45 IMPRESSION: 1. Findings compatible with a perforation of the small bowel in the anterior abdomen, seen best on axial image 116. Air, fluid and oral contrast arising from the perforated bowel communicates with mixed air-fluid collections within the anterior abdomen, measuring up to 13 x 24 cm on the left. 2. Large pneumoperitoneum, overall similar to the previous CT exam. 3. Small perisplenic and pelvic free fluid. 4. Status post cholecystectomy. Decreasing now small postoperative fluid collection within the gallbladder fossa, likely a resolving hematoma, seroma or contained biloma. 5. Small bilateral pleural effusions with bibasilar atelectasis. A superimposed left lower lobe pneumonia cannot be excluded. Results of this examination were communicated to the surgical nurse practitioner, Ladi Gonzales, at 1:32 p.m. on 05/13/2017. The case was also discussed with Dr. Campos. D/ /13/2017 13:43:50 Zeke Verdugo MD / cuco Interpreting Provider: Zeke Verdugo MD <Ignacio Campos - Last Filed: 05/20/17 17:16> Date of Encounter: 05/20/17 General Surgery Exam Initial Vital Signs Temp Pulse Resp BP Pulse Ox 98.4 F 86 18 133/88 92 05/04/17 11:44 05/04/17 11:44 05/04/17 11:44 05/04/17 11:44 05/04/17 11:44 Date of admission: 05/07/17 18:42 Primary care physician: Adriana Barrios, Consults: 05/08/17 13:24 Consult to Respiratory Therapy [CONS] Stat Reason for Consult: AccuPAP nebulizer treatments and aggressive pulmonary toileting; spoke with Tabby Time Notified: 13:20 Call Completed: Yes 05/08/17 16:38 Consult to Invasive Line Access Team [CONS] Routine Reason for Consult: Limited vascular access Line Type: EPIV 05/09/17 15:43 Consult to Cardiology [CONS] Routine Comment: To [place] [facility] Dr. Pratt Consulting Provider: Cardiology Aishwarya Reason for Consult: SOB, Q-waves on EKG (denies cardiovascular history), echo pending Time Notified: 15:44 Call Completed: Yes 05/10/17 21:39 Consult to Hospitalist [CONS] Stat Consulting Provider: Hospitalist Nayan Reason for Consult: chest pain/ SOB Call Completed: Yes 05/12/17 08:48 Consult to Physical Therapy [CONS] Stat Comment: Evaluate, develop and implement POC Reason for Consult: Mobiliization and DC planning 05/14/17 15:38 Consult to PICC team [Consult to Invasive Line Access Team] [CONS] Routine Reason for Consult: PICC line placement Line Type: PICC PICC line indications: Parental nutrition Time Notified: 15:40 Call Completed: Yes 05/14/17 15:40 consult to transitional kindergarten teacher [Consult to Nutrition] [CONS] Stat Comment: Total fluid rate 125ml/hour (MIV + TPN) Consulting Provider: NUTRITION Reason for Dietary Consult: TPN Start and Manage 05/14/17 17:18 Consult to Invasive Line Access Team [CONS] Routine Reason for Consult: Picc Line Insertion Line Type: PICC 05/16/17 10:10 Consult to Physical Therapy [CONS] Routine Comment: Evaluate, develop and implement POC Reason for Consult: mobilization - Hospital Course Hospital course: Ms. Nicole is a 51 year old female - Time Spent with Patient Total time spent providing and/or coordinating discharge services: Labs on day of discharge: Labs from last 24 hours 05/20/17 05/20/17 05/20/17 10:20 04:23 04:23 WBC 15.1 H RBC 3.73 L Hgb 9.5 L Hct 30.9 L MCV 82.8 L MCH 25.5 L MCHC 30.7 L RDW 17.8 H Plt Count 585 H MPV 9.8 Seg Neutrophils % 58.0 Lymphocytes % 22.0 Monocytes % 12.0 Eosinophils % 6.0 Myelocytes % 2.0 H Neutrophils # 8.8 Lymphocytes # 3.3 Monocytes # 1.8 H Eosinophils # 0.9 H Platelet Estimate Increased H Sodium 139 Potassium 4.0 Chloride 107 Carbon Dioxide 25 BUN 16 Creatinine 0.48 L Est GFR ( Amer) > 60 Est GFR (Non-Af Amer) > 60 BUN/Creatinine Ratio 33 H Glucose 86 POC Glucose Calculated Osmolality 288 Calcium 8.5 L Magnesium 2.1 05/19/17 04:11 WBC RBC Hgb Hct MCV MCH MCHC RDW Plt Count MPV Seg Neutrophils % Lymphocytes % Monocytes % Eosinophils % Myelocytes % Neutrophils # Lymphocytes # Monocytes # Eosinophils # Platelet Estimate Sodium Potassium Chloride Carbon Dioxide BUN Creatinine Est GFR ( Amer) Est GFR (Non-Af Amer) BUN/Creatinine Ratio Glucose POC Glucose 120 H Calculated Osmolality Calcium Magnesium - Impressions ITS Impressions Gallbladder Ultrasound 05/04/17 14:03 IMPRESSION: Cholelithiasis without sonographic evidence of acute cholecystitis. D/ / 05/04/2017 16:53:26 Zeke Salgado MD / bcarter Interpreting Provider: Zeke Salgado MD Bile Acid Absorption NM 05/05/17 10:00 IMPRESSION: Nonvisualization of the gallbladder after morphine administration consistent with acute cholecystitis. D/ / Tremaine Juarez MD / Tremaine Juarez MD Interpreting Provider: Tremaine Juarez MD Cholangiogram,Operative 05/05/17 17:25 IMPRESSION: Normal intraoperative cholangiogram. D/ / Zeke Verdugo MD / Zeke Verdugo MD Interpreting Provider: Zeke Verdugo MD Chest X-Ray 05/07/17 12:21 IMPRESSION: New airspace disease in the left lung base which could represent atelectasis or infiltrate. Left effusion. Free air underneath the hemidiaphragm that is likely related to the patient's previous surgery. The findings were sent to the Radiology Results Communication Center at 12:58 pm on 05/07/2017to be communicated to a licensed caregiver. The findings were discussed with Mariama Gonzales CHP 05/07/2017 at 1:11 p.m. D/ / 05/07/2017 13:14:18 Sary Sandhu MD / [facility] [place] Interpreting Provider: Sary Sandhu MD Chest CTA 05/07/17 13:14 IMPRESSION: 1. Large amount of free intraperitoneal air, greater than expected 2 days postop. Small quantity of ascites as well as mild infiltration of the mesenteric fat. The findings are worrisome for perforation. Although nonspecific, the largest quantity of focal gas is seen within the left upper quadrant raising the possibility of gastric or adjacent colonic perforation. 2. Small quantity of fluid in the gallbladder fossa, not unexpected 2 days postop. 3. No evidence of pulmonary embolic disease. 4. Small left pleural effusion. Bilateral lower lobe atelectasis, left greater than right. The findings were called to Mariama Gonzales on 05/07/2017 at 3:00 p.m. D/ / 05/07/2017 15:14:59 Henrry Fox MD / [facility] Interpreting Provider: Henrry Fox MD Abdomen CT 05/07/17 13:17 IMPRESSION: 1. Large amount of free intraperitoneal air, greater than expected 2 days postop. Small quantity of ascites as well as mild infiltration of the mesenteric fat. The findings are worrisome for perforation. Although nonspecific, the largest quantity of focal gas is seen within the left upper quadrant raising the possibility of gastric or adjacent colonic perforation. 2. Small quantity of fluid in the gallbladder fossa, not unexpected 2 days postop. 3. No evidence of pulmonary embolic disease. 4. Small left pleural effusion. Bilateral lower lobe atelectasis, left greater than right. The findings were called to Mariama Gonzales on 05/07/2017 at 3:00 p.m. D/ / 05/07/2017 15:14:59 Henrry Fox MD / [facility] Interpreting Provider: Henrry Fox MD Upper GI Series 05/08/17 13:17 IMPRESSION: 1. No acute abnormality involving the stomach, esophagus or duodenum. No evidence of leak. 2. Persistent subdiaphragmatic free air, as previously seen on recent CT. D/ / 05/08/2017 16:17:52 Henrry De Luna MD / [facility] Interpreting Provider: Henrry De Luna MD Chest X-Ray 05/08/17 14:04 IMPRESSION: Slight interval improvement of pneumoperitoneum under the left hemidiaphragm. Persistent right pneumoperitoneum. Small left pleural effusion with adjacent atelectasis. D/ / 05/08/2017 15:52:43 Shruti Pringle MD / [facility] Interpreting Provider: Shruti Pringle MD Echocardiogram 05/09/17 09:00 Impressions: Technically sub-optimal due to body habitus. LVEF 60-65%. No segmental dysfunction. No significant valvular dysfunction. Left Ventricular Wall Motion: Rest Echo Findings All wall segments showed normal motion. Findings: Right Ventricle * Not well visualized Left Atrium * Not well visualized Aorta * Normally sized aortic root. ECG Findings * Normal sinus rhythm. Study Quality * Technically sub-optimal due to body habitus. Aortic Valve * Aortic valve not well visualized. * No aortic regurgitation. * No aortic stenosis. Mitral Valve * Mitral valve not well visualized. * No mitral stenosis. * No mitral regurgitation. Tricuspid Valve * No tricuspid stenosis. * Trace tricuspid regurgitation. * Tricuspid valve not well visualized. * Unable to estimate RVSP due to lack of TR jet. Pulmonic Valve * Pulmonic valve is not well visualized. * No pulmonic stenosis. * No pulmonic regurgitation. IVC * The IVC is not well evaluated. Interatrial Septum * Interatrial septum not well evaluated. Right Atrium * Right atrium is not well visualized. Pericardium * There is a trivial-small pericardial effusion present. Left Ventricle * LVEF 60-65%. * Mild left ventricular diastolic dysfunction. * No segmental dysfunction. Chest X-Ray 05/10/17 06:00 IMPRESSION: No substantial change in appearance of the chest. D/ / Claudette Bronson MD / Claudette Bronson MD Interpreting Provider: Claudette Bronson MD Chest X-Ray 05/10/17 20:52 IMPRESSION: Persistent low lung volumes with basilar opacities favored to reflect bronchovascular crowding and atelectasis. Mild decrease in pneumoperitoneum. D/ / Tutu De Leon / Tutu De Leon Interpreting Provider: Tutu De Leon Chest X-Ray 05/12/17 10:18 IMPRESSION: 1. Stable left basilar airspace disease. Continued radiographic follow-up recommended. 2. Pneumoperitoneum as on the previous chest radiograph which is a known finding. D/ / Filemon King MD / Filemon King MD Interpreting Provider: Filemon King MD Abdomen/Pelvis CT 05/13/17 11:45 IMPRESSION: 1. Findings compatible with a perforation of the small bowel in the anterior abdomen, seen best on axial image 116. Air, fluid and oral contrast arising from the perforated bowel communicates with mixed air-fluid collections within the anterior abdomen, measuring up to 13 x 24 cm on the left. 2. Large pneumoperitoneum, overall similar to the previous CT exam. 3. Small perisplenic and pelvic free fluid. 4. Status post cholecystectomy. Decreasing now small postoperative fluid collection within the gallbladder fossa, likely a resolving hematoma, seroma or contained biloma. 5. Small bilateral pleural effusions with bibasilar atelectasis. A superimposed left lower lobe pneumonia cannot be excluded. Results of this examination were communicated to the surgical nurse practitioner, Ladi Gonzales, at 1:32 p.m. on 05/13/2017. The case was also discussed with Dr. Campos. D/ / 05/13/2017 13:43:50 Zeke Verdugo MD / cuco Interpreting Provider: Zeke Verdugo MD - Attending Attestation I examined this patient and my medical decision-making was reviewed with the Resident Physician. I agree with the documented findings, disposition and treatment plan as described except to the extent set forth below.
[2017-05-20 11:20] VITALS: BP 114/68
--- NOTE | 2017-05-20 11:33 | Physician Discharge Referral ---
Home Health/Hosp Referral Info Transfer to: Home Health Attending Provider: Ignacio Campos MD Provider in Charge Post Discharge: Other (Dr. Ignacio Campos) - Diagnosis (1) Acute cholecystitis Priority: Primary Status: Acute (2) Small bowel perforation Priority: Secondary Status: Acute (3) Postoperative urinary retention Priority: Secondary Status: Resolved - Respiratory Orders None Smoking Cessation: Smoking cessation has been advised. For more information, call the [employer] Tobacco Quit Line at 3-113-LNQA-NOW. - Dressing/Wound Care Site: Anterior abdominal wall Type of Dressing/Treatments w/Frequency: Incisions can be left open to air. Dressings per patient's comfort. - Diet/Nutrition Diet/Nutrition Orders: Regular (Advance diet as tolerated. Currently on soft liquid diet. Advance as tolerated to a normal diet. Watch for nausea or vomitting.) Diet/Nutrition: List: Avoid carbonation. - Activity Activity Orders: Up ad hardy - Services Needed Following services are medically necessary services: Nursing, Home Health Aide, Physical Therapy, Occupational Therapy Other Treatments: General Surgical Discharge Instructions 1. No pushing, pulling, or lifting greater than 15 lbs for 2-4 weeks (depending upon procedure). 2. You may shower beginning today, but no tub baths, soaking, or swimming for 2 weeks. 3. You may resume driving when you are off narcotics and are safe to react in a car. 4. Take ibuprofen every 8 hours for discomfort. If this does not relieve discomfort, you may take the as needed Percocet. Take narcotics as directed. Do not take more narcotics then directed and do not share your narcotics with any other person. Do not drink alcohol while on narcotics. 5. Take stool softeners (Colace) or a water based laxative (Miralax) while taking narcotics. You may hold for loose stools. 6. Report any fevers greater than 100.5F, increase abdominal discomfort, drainage that looks like pus, increased redness or pain at the surgical site, or any vomiting. 7. Report any pain in the calves, shortness of breath, or rapid heartbeat. 8. Follow-up in the office as directed. 9. If you were prescribed antibiotics, do not stop them without talking to your provider. No lifting greater than 15 pounds for 6 weeks post-operation. - Transfer Medications Prescriptions: Levofloxacin [Levaquin] 750 mg PO DAILY 3 Days #3 tablet Home Medications: Liothyronine Sodium [Cytomel] 2.5 mcg PO BID 05/05/17 [History] Omeprazole [PriLOSEC] 20 mg PO DAILY 05/05/17 [History] hydroCHLOROthiazide [Hydrochlorothiazide] 25 mg PO DAILY 05/05/17 [History] Docusate Sodium [Colace] 100 mg PO BID PRN #30 capsule 05/06/17 [Rx] Ibuprofen 800 mg PO Q8H #30 tablet 05/06/17 [Rx] OxyCODONE/APAP 5/325 [Percocet 5/325 MG] 1 each PO Q6HR PRN 7 Days #28 tablet [Rx] Levothyroxine [Synthroid] 125 mcg PO DAILY 05/15/17 [History] Levofloxacin [Levaquin] 750 mg PO DAILY 3 Days #3 tablet 05/20/17 [Rx] Allergies/Adverse Reactions: 3 Allergy/AdvReac Type Severity Reaction Status Date / Time Penicillins [PCN] AdvReac "FELT Verified 05/05/17 07:21 STRANGE" Certification: Further, I certify that my clinical findings support that this patient is homebound (i.e. absences from home require considerable and taxing effort and are for medical reasons or voodoo services or infrequently or short duration when for other reasons) because: Homebound Reason: Patient requires assistance of a person or device to safely leave home, Post-surgery restriction and or conditions limit ability to leave home, Leaving home requires considerable and taxing effort due to condition Attestation: My signature below is to certify that this patient is under my care and that I, or nurse practitioner, or a physician's catering administrative assistant working with me, has a face-to -face encounter with this patient.
--- NOTE | 2017-05-20 12:20 | Internal Med Progress Note ---
Date of Encounter: 05/20/17 Time of Encounter: 09:15 - Assessment and plan (1) Acute cholecystitis Status: Acute Assessment and plan: Patient admitted to surgery team, underwent laparoscopic cholecystectomy on 07/2017. Currently tolerates oral diet. (2) Acute respiratory failure with hypoxia Status: Resolved Assessment and plan: Secondary to postoperative atelectasis along with pneumonia. Currently saturating well on room air, not requiring supplemental oxygen. (3) Fluid overload, unspecified Status: Acute Assessment and plan: BNP=51. TTE 05/11/17: EF 60-65%, normal wall motion, mild LVDD, no significant valvular dysfunction. CXR: stable left basilar airspace disease, pneumoperitoneum. Likely secondary to excessive IV hydration in the perioperative period. Improved now. Qualifiers: Hypervolemia type: unspecified Qualified Code(s): E87.70 - Fluid overload, unspecified (4) Morbid obesity with BMI of 40.0-44.9, adult Status: Chronic (5) Sepsis Status: Acute Assessment and plan: Patient had sirs criteria which could be secondary to surgeries and postoperative status, pneumonia cannot be excluded. Has been on multiple antibiotics for the last 10 days. 2 continue 2 more days of oral Levaquin. Blood and sputum cultures remain negative. Urine legionella and Streptococcus pneumoniae antigen negative. Qualifiers: Sepsis type: sepsis due to unspecified organism Qualified Code(s): A41.9 - Sepsis, unspecified organism (6) Small bowel perforation Status: Acute Assessment and plan: Admitted to surgery service. Underwent partial small bowel resection with primary anastomosis, drainage of multiple interloop abscesses, lysis of adhesions. Currently tolerating clear liquid diet, to advance to soft diet per primary team. Local wound care and postoperative care per primary team. (7) Hypertension Status: Chronic Qualifiers: Hypertension type: unspecified Qualified Code(s): I10 - Essential (primary ) hypertension (8) Hypothyroidism Status: Chronic Qualifiers: Hypothyroidism type: unspecified Qualified Code(s): E03.9 - Hypothyroidism , unspecified (9) Pneumonia Status: Acute Assessment and plan: To complete 2 more days of oral Levaquin as mentioned above. Saturating well on room air, no longer requiring supplemental oxygen. Patient did not qualify for home BiPAP. Medically stable for discharge. Encourage ambulation, incentive spirometry. Qualifiers: Pneumonia type: due to unspecified organism Laterality: left Lung location: lower lobe of lung Qualified Code(s): J18.1 - Lobar pneumonia, unspecified organism - Subjective Interval history: Feels better; improved abdominal pain; no nausea, vomiting; has bowel movements , tolerates clear liquids; no chest pain, shortness of breath; - Constitutional Vitals: Temp Pulse Resp BP Pulse Ox 98.7 F 96 16 114/68 97 05/20/17 11:18 05/20/17 11:18 05/20/17 11:18 05/20/17 11:18 05/20/17 11:18 General appearance: Present: A&O X 3, obese, answers questions appropriately - Respiratory Respiratory exam: Present: CTAB. Absent: accessory muscle use, rales, rhonchi, wheezes - Cardiovascular Cardiovascular exam: Present: RRR, +S1, +S2. Absent: diastolic murmur, gallop, rubs, systolic murmur - GI/Abdominal GI/Abdominal exam: Present: normal bowel sounds, soft (midline surgical wound healing well, intact adam;), no peritoneal signs. Absent: distended, tenderness Internal Medicine: Result - Labs CBC & Chem 7: 05/20/17 04:23 05/20/17 04:23 Labs: Short CBC 05/20/17 Range/Units 04:23 WBC 15.1 H (4.3-11.1) K/mcL Hgb 9.5 L (11.5-15.4) g/dL Hct 30.9 L (35.3-44.9) % Plt Count 585 H (140-400) K/mcL Neutrophils # 8.8 (1.6-8.9) K/mcL BMP 05/20/17 04:23 Sodium 139 Potassium 4.0 Chloride 107 Carbon Dioxide 25 BUN 16 Creatinine 0.48 L Glucose 86 Calcium 8.5 L - ABG Interpretation ABG results: ABG ABG pH 7.51 pH Units (7.32-7.45) H 05/12/17 16:40 ABG pCO2 37 mmHg (35-45) 05/12/17 16:40 ABG pO2 72 mmHg (85-104) L 05/12/17 16:40 ABG O2 Saturation 96 % (95-98) 05/12/17 16:40 PT/INR, D-dimer PT 13.5 Seconds (9.4-12.1) H 05/05/17 06:18 - VTE Reasons for not Prescribing Prophylaxis: Treatment not Indicated - Low risk for VTE Documentation of Mechanical Device: Intermittent pneumatic compression device Consult Discharge Plan - Plan Instructions: Laparoscopic Cholecystectomy (DC) Additional Instructions: General Surgical Discharge Instructions 1. No pushing, pulling, or lifting greater than 15 lbs for 2-4 weeks (depending upon procedure). 2. You may shower beginning today, but no tub baths, soaking, or swimming for 2 weeks. 3. You may resume driving when you are off narcotics and are safe to react in a car. 4. Take ibuprofen every 8 hours for discomfort. If this does not relieve discomfort, you may take the as needed Percocet. Take narcotics as directed. Do not take more narcotics then directed and do not share your narcotics with any other person. Do not drink alcohol while on narcotics. 5. Take stool softeners (Colace) or a water based laxative (Miralax) while taking narcotics. You may hold for loose stools. 6. Report any fevers greater than 100.5F, increase abdominal discomfort, drainage that looks like pus, increased redness or pain at the surgical site, or any vomiting. 7. Report any pain in the calves, shortness of breath, or rapid heartbeat. 8. Follow-up in the office as directed. 9. If you were prescribed antibiotics, do not stop them without talking to your provider. No lifting greater than 15 pounds for 6 weeks post-operation. Referrals: Mariama Gonzales CNP [Advanced Practice Nurse] - 06/02/17 2:00 pm Prescriptions: Levofloxacin [Levaquin] 750 mg PO DAILY 3 Days #3 tablet
--- NOTE | 2017-05-23 09:11 | Electrocardiograph Report ---
[place] [id number] Test Date: 2017-05-18 Pat Name: Jasmyn Nicole Department: 115 Room: 3A21 Gender: F [employer]ocker: : 1965 Requested By: Eleuterio Nix Order Number: [id number] Reading MD: Bharat Ogden DO Measurements Intervals [place] Rate: 96 P: 28 WV: 160 QRS: -8 QRSD: 104 T: 3 QT: 329 QTc: 383 Interpretive Statements SINUS RHYTHM NONSPECIFIC T-WAVE ABNORMALITY Electronically Signed On 05-23-2017 9:09:14 EST by Bharat Ogden DO
== END 2017-05-20 01:37 | disposition home health service (06) | DRG 417 ==
LOC: 3ANU → SUATTDRO 05-07 18:42 → 3ANU 05-17 14:39
PROVIDERS: ADMIT Surgery; ATTEND Internal Medicine

== ENCOUNTER 2021-04-22 00:41 | Observation (INO) ==
[2021-04-22] MEDS ORDERED: Melatonin 3 MG TABLET PO PRN (03:40)
[2021-04-22] MEDS ORDERED: Naloxone 0.4 MG/ML INJ IVP PRN (03:40)
[2021-04-22] MEDS ORDERED: *HR* HYDROcodone/Acet 5/325 mg TABLET PO PRN (03:40)
[2021-04-22] MEDS ORDERED: Ondansetron ODT 4 MG TAB.RAPDIS SL PRN (03:40)
[2021-04-22] MEDS ORDERED: *HR* OxyCODONE Immed Rel 5 MG TABLET PO PRN (03:40)
[2021-04-22] MEDS ORDERED: Acetaminophen 325 MG TABLET PO PRN (03:40)
[2021-04-22] MEDS ORDERED: Perflutren Lipid Microsphere 1.3 ML in 0.9 % Sodium Chloride 8.7 ML IVP PRN (04:07)
[2021-04-22] MEDS ORDERED: Nitroglycerin 0.4 MG TAB.SUBL SL PRN (04:08)
[2021-04-22 07:02] LABS: Basophils # 0.1 K/mcL (0.0-0.2); Basophils % 0.5 %; Eosinophils # 0.1 K/mcL (0.0-0.6); Eosinophils % 1.1 %; Hematocrit 42.3 % (35.3-44.9); Hemoglobin 14.2 g/dL (11.5-15.4); Immature Granulocytes % 0.4 % (0-4); Lymphocytes # 3.9 K/mcL (0.6-4.6); Lymphocytes % 38.7 %; Mean Corpuscular HGB Conc 33.6 g/dL (31.6-35.5); Mean Corpuscular Hemoglobin 28.2 pg (28.0-33.3); Mean Corpuscular Volume 84.1 fL (83.0-100.0); Mean Platelet Volume 10.4 fL (9.4-12.4); Monocytes % 9.6 %; Platelet Count 383 K/mcL (140-400); Red Blood Count 5.03 M/mcL (3.82-4.97); Red Cell Distribution Width 14.3 % (11.5-14.5); Segmented Neutrophils % 49.7 %
[2021-04-22 07:25] LABS: Alanine Aminotransferase 13 Units/L (7-52); Albumin 4.1 g/dL (3.5-5.7); Albumin/Globulin Ratio 1.7 (1.1-2.2); Alkaline Phosphatase 72 Units/L (34-104); Aspartate Amino Transferase 16 Units/L (13-39); BUN/Creatinine Ratio 27 (6-26); Bilirubin,Total 0.6 mg/dL (0.3-1.0); Blood Urea Nitrogen 22 mg/dL (6-20); Calcium 9.7 mg/dL (8.6-10.3); Carbon Dioxide 28 mEq/L (23-29); Chloride 103 mEq/L (98-107); Chol/HDL Ratio 4.8 (0-4.9); Cholesterol 250 mg/dL (< 200); Globulin 2.4 g/dL (2.4-3.5); Glucose 88 mg/dL (70-105); HDL Cholesterol 52 mg/dL (40-59); LDL Cholesterol,Calculated 168 mg/dL (< 100); Magnesium 2.2 mg/dL (1.6-2.6); Osmolality,Calculated 291 (280-300); Phosphorous 4.3 mg/dL (2.7-4.5); Potassium 3.4 mEq/L (3.5-5.1); Sodium 139 mEq/L (136-145); Total Protein 6.5 g/dL (6.4-8.9); Triglycerides 151 mg/dL (< 150); Troponin I < 0.03 ng/mL (< 0.04); eGFR For African Americans > 60 (> 60); eGFR For Non-African Americans > 60 (> 60)
[2021-04-22 07:37] LABS: Thyroid Stimulating Hormone 6.356 mcIU/mL (0.340-5.600)
[2021-04-22 09:01] LABS: Estimated Average Glucose 103 mg/dl; Hemoglobin A1C 5.2 %
[2021-04-22] MEDS: hydroCHLOROthiazide 25 MG TABLET PO SCH (14:34)
[2021-04-23] MEDS: Nystatin Cream 15 GM TUBE TP SCH ×2 (01:05→09:23)
[2021-04-23 07:19] VITALS: O2SAT 96
[2021-04-23] MEDS ORDERED: hydroCHLOROthiazide 25 MG TABLET PO SCH (09:00)
[2021-04-23] MEDS ORDERED: Aspirin Enteric Coated 81 MG Tablet PO SCH (09:00)
[2021-04-23] MEDS: hydroCHLOROthiazide 25 MG TABLET PO SCH (09:23)
[2021-04-23 12:45] LABS: BUN/Creatinine Ratio 27 (6-26); Blood Urea Nitrogen 24 mg/dL (6-20); Calcium 10.3 mg/dL (8.6-10.3); Carbon Dioxide 25 mEq/L (23-29); Chloride 101 mEq/L (98-107); Glucose 90 mg/dL (70-105); Osmolality,Calculated 288 (280-300); Potassium 3.6 mEq/L (3.5-5.1); Sodium 137 mEq/L (136-145); eGFR For African Americans > 60 (> 60); eGFR For Non-African Americans > 60 (> 60)
[2021-04-23] MEDS ORDERED: Isovue-370 500 ML BOTTLE IVP ONE (14:16)
[2021-04-23 14:26] VITALS: BP 121/77; PULSE 77; TEMP 97.7
[2021-04-24] MEDS ORDERED: hydroCHLOROthiazide 25 MG TABLET PO SCH (09:00)
== END 2021-04-23 17:51 | disposition home or self-care (01) ==
LOC: 3BNU → SUATTDRO 03:19
PROVIDERS: ADMIT Internal Medicine; ATTEND Nurse Practitioner